=== PATIENT | female | born 1965 | race Caucasian/White ===

== ENCOUNTER 2018-12-29 21:31 | Inpatient (IN) | payer MEDICAID ==
[~2018-12-29] VITALS: Ht 160 cm; Wt 79.1 kg
[2018-12-29] MEDS ORDERED: HYDROCODON-ACE1 EA10 PO (21:39)
[2018-12-29] MEDS ORDERED: MIRALAX17 GM PO (21:40)
[2018-12-29] MEDS ORDERED: CHRONULAC30 ML PO (21:40)
[2018-12-29] MEDS ORDERED: ZOFRAN ODT4 MG/UDTAB PO (21:41)
[2018-12-29 22:21] LABS: HEMATOCRIT 28.8 % (36.0-48.0); HEMOGLOBIN 9.3 g/dL (12-16); MCH 30.8 pg (26.0-34.0); MCHC 32.3 g/dL (31.0-37.0); MCV 95.4 fL (80.0-100.0); PLATELET COUNT 93 10x3/uL (130-400); RBC 3.02 10x6/uL (4.00-5.40); RDW 16.8 % (11.5-14.5); WBC 5.9 10x3/uL (4.8-10.8)
[2018-12-29 22:34] LABS: APPEARANCE CLEAR (CLEAR); BILIRUBIN NEGATIVE (NEGATIVE); COLOR YELLOW (YELLOW); GLUCOSE NEGATIVE (NEGATIVE); KETONE NEGATIVE (NEGATIVE); NITRITE NEGATIVE (NEGATIVE); PROTEIN NEGATIVE (NEGATIVE); SPECIFIC GRAVITY 1.015 (1.005-1.020); UROBILINOGEN NORMAL (NORMAL)
[2018-12-29 22:45] LABS: ALBUMIN 2.3 g/dL (3.4-5.0); ALKALINE PHOSPHATASE 65 U/L (46-116); ALT (SGPT) 16 U/L (10-68); BILIRUBIN - TOTAL 0.64 mg/dL (0.2-1.3); CALC OSMOLALITY 273 mosm/kg (275-300); CARBON DIOXIDE 25.3 mmol/L (21.0-32.0); CHLORIDE - SERUM 100 mmol/L (98-107); CREATININE - SERUM 0.9 mg/dL (0.6-1.3); GLUCOSE 111 mg/dL (74-106); POTASSIUM - SERUM 3.5 mmol/L (3.5-5.1); PROTEIN - SERUM 5.6 g/dL (6.4-8.2); SODIUM 136 mmol/L (136-145); UREA NITROGEN 14 mg/dL (7-18); eGFR NON AFRICAN AMERICAN 69 mL/min (90-120)
[2018-12-29 22:48] LABS: AMYLASE - SERUM 46 U/L (25-115); LIPASE 96 U/L (73-393); TROPONIN-I < 0.017 ng/mL (0.000-0.060)
[2018-12-29 22:50] LABS: EOSINOPHILS 2 % (0-7); LYMPHOCYTES 34 % (15-50); MONOCYTES 2 % (2-11); NEUTROPHILS 62 % (40-80); PLATELET ESTIMATE DECREASED
[2018-12-29 23:30] VITALS: BP 118/77
[2018-12-30] VITALS (15 sets, daily range): BP systolic 91–111; BP diastolic 57–70; Ht 160 cm; Wt 79.1 kg
--- NOTE | 2018-12-30 00:33 | NUR ---
PT AMBULATED TO RESTROOM INDEPENDENTLY.
--- NOTE | 2018-12-30 00:43 | NUR ---
PT REPORTS HAD A MODERATE SIZED BM AND NOW FEELS LESS PRESSURE IN LOWER ABDOMEN. EDP NOTIFIED.
--- NOTE | 2018-12-30 03:17 | NUR ---
PT TO ROOM VIA BED ACCOMPANIES BY SPOUSE AND ER STAFF. PT LETHARGIC BUT ORIENTED X3. BP 95/62, RECIEVING NS AT 50 ML/HR INTO L AC PER MD ORDER. HR 112, TEMP 98.5, RR 20, 02 97% ON 2L OF O2 VIA NC. PAIN AT 0/10 45 MIN POST DEMEROL ADMINISTRATION. PT APPEARS FLUSHED AND C/O FEELING HOT. PT SKIN WARM TO TOUCH, DRY. NO S/S OF DISTRESS, RR EVEN AND UL. SPOUSE AT BEDSIDE. NO FURTHER NEEDS NOTED AT THIS TIME. CL IN REACH, SR UP X2, BED IN LOWEST POSITION.
--- NOTE | 2018-12-30 07:42 | NUR ---
ROUNDING DONE WITH PATIENT BEING NPO AT THIS TIME FOR PROCEDURE. ON 2L PER NC. LEFT AC PIV SEEN WITH NS INFUSING AT 50 CC/HR. FAMILY MEMBERS ASLEEP IN CHAIRS IN ROOM. WILL MONITOR.
--- NOTE | 2018-12-30 08:42 | NUR ---
0835-PERMITS SIGNED FOR PROCEDURE TODAY. WIPES GIVEN TO PATIENT OF DELORIS AND MARTELL CARDOSO.
[2018-12-30 09:15] LABS: INR 1.22 (0.85-1.17); PROTIME 14.8 SECONDS (11.6-15.0)
[2018-12-30 11:34] LABS: % SATURATION 26 % (15-55); IRON 44 ug/dl (35-150); TOTAL IRON BIND CAPACITY 169 ug/dl (260-445); UNSAT IRON BIND CAPACITY 125 ug/dl (150-375)
--- NOTE | 2018-12-30 13:04 | NUR ---
TO IR VIA BED.
--- NOTE | 2018-12-30 14:18 | NUR ---
1405-RETURNS FROM IR WITH C/D/I DRESSING OF 2 X 2 AND OPSITE TO RIGHT ABDOMINAL AREA. HUNGRY. WILL ORDER A TRAY.
--- NOTE | 2018-12-30 16:24 | NUR ---
STILL DOING WELL POST PROCEDURE. NO BLEEDING SEEN TO RIGHT ABDOMINAL DRESSING. WILL CONTINUE TO FOLLOW AND MONITOR.
--- NOTE | 2018-12-30 17:44 | NUR ---
EATING SUPPER, DENIES NEEDS AT THIS TIME.
--- NOTE | 2018-12-30 17:53 | NUR ---
ASSSITED PATIENT TO RESTROOM. VOIDS EASILY.
--- NOTE | 2018-12-30 20:00 | NUR ---
INITIAL ASSESSMENT COMPLETED - PT RESTING IN BED, STATES SHE STILL HAS SOME MILD PAIN BUT ONLY WHEN SHE MOVES. DRESSING TO R ABDOMEN C/D/I, DATED 12/30/18. PT REPORTS SLIGHT ABD PAIN. ASSISTED PT UP TO BATHROOM TO VOID, VOIDS EASILY. PT RECIEVING NS VIA L AC PIV AT 50 ML/HR. NO NEEDS NOTED AT THIS TIME. SET GOAL WITH PT TO CONTROL PAIN ADEQUATELY. PT VERBALIZED UNDERSTANDING. WCTM AND FOLLOW POC. NO OTHER NEEDS NOTED AT THIS TIME. CL IN REACH, SR UP X2, BED IN LOWEST POSITION.
[2018-12-31] VITALS: BP 96/59
[2018-12-31 04:32] VITALS: BP 95/58
[2018-12-31 06:01] LABS: BASOPHILS 0 % (0-2); HEMATOCRIT 25.4 % (36.0-48.0); HEMOGLOBIN 8.1 g/dL (12-16); IMMATURE GRANULOCYTES 0.2 % (0-5); LYMPHOCYTES 34.8 % (15-50); MCH 30.5 pg (26.0-34.0); MCHC 31.9 g/dL (31.0-37.0); MCV 95.5 fL (80.0-100.0); MONOCYTES 1.2 % (2-11); NEUTROPHILS 62.8 % (40-80); RBC 2.66 10x6/uL (4.00-5.40); RDW 16.6 % (11.5-14.5)
[2018-12-31 06:25] LABS: CALC OSMOLALITY 277 mosm/kg (275-300); CALCIUM 7.4 mg/dL (8.5-10.1); CARBON DIOXIDE 26.6 mmol/L (21.0-32.0); CHLORIDE - SERUM 104 mmol/L (98-107); CREATININE - SERUM 0.7 mg/dL (0.6-1.3); GLUCOSE 98 mg/dL (74-106); POTASSIUM - SERUM 3.3 mmol/L (3.5-5.1); SODIUM 140 mmol/L (136-145); eGFR NON AFRICAN AMERICAN > 90 mL/min (90-120)
[2018-12-31 06:26] LABS: UREA NITROGEN 9 mg/dL (7-18)
[2018-12-31 06:37] LABS: PLATELET COUNT 73 10x3/uL (130-400); WBC 4.1 10x3/uL (4.8-10.8)
--- NOTE | 2018-12-31 07:43 | NUR ---
ROUNDING DONE WITH PATIENT RESTING, AROUSES EASILY. ON ROOM AIR. GLASSES ON. LEFT AC PIV SEEN WITH NS INFUSING AT 50 CC/HR. SLIGHT DISCOMFORT TO ABDOMINAL AREA. DRESSING SEEN TO RIGHT ABDOMINAL AREA FROM PROCEDURE YESTERDAY.
[2018-12-31 09:00] VITALS: BP 103/58
[2018-12-31 10:19] LABS: FOLATE (FOLIC ACID) - SERUM 13.3 ng/mL (>3.0)
--- NOTE | 2018-12-31 12:32 | NUR ---
DENIES NEEDS AT THIS TIME, STATES THAT SHE WILL TRY TO EAT LUNCH.
[2018-12-31 12:43] VITALS: BP 109/61
--- NOTE | 2018-12-31 13:18 | NUR ---
REFUSED SCD PATIENT IS UP AND DOWN TO RESTROOM.
--- NOTE | 2018-12-31 13:28 | NUR ---
LAYING IN BED WATCHING TV, DENIES NEEDS.
[2018-12-31 16:05] VITALS: BP 102/63
[2018-12-31 17:29] LABS: HEMATOCRIT 25.3 % (36.0-48.0); HEMOGLOBIN 8.3 g/dL (12-16)
--- NOTE | 2018-12-31 18:15 | NUR ---
ORAL TEMP 100.0. DR VILLARREAL MADE AWARE OF THIS AND NEW ORDERS. TYLENOL GIVEN.
--- NOTE | 2018-12-31 19:15 | NUR ---
RESUMING PT CARE. PT ALERT LAYING IN THE BED WATCHING TV. NO C/O VOICED AT THIS TIME. BED IN LOW POSITION WITH CALL LIGHT IN REACH. SIDE RAILS UP X 2. WILL CONTINUE TO MONITOR PT AND FOLLOW PLAN OF CARE.
--- NOTE | 2018-12-31 19:30 | NUR ---
PT IV INFILTRATED. IV WAS PULLED OUT AND A 2X2 WAS APPLIED TO SITE. PT STATES NO DISCOMFORT AT THIS TIME. WILL CONTINUE TO MONITOR PT AND FOLLOW PLAN OF CARE.
[2018-12-31 20:00] VITALS: BP 100/63
[2018-12-31 22:51] LABS: APPEARANCE CLEAR (CLEAR); BILIRUBIN NEGATIVE (NEGATIVE); COLOR YELLOW (YELLOW); GLUCOSE NEGATIVE (NEGATIVE); KETONE NEGATIVE (NEGATIVE); NITRITE NEGATIVE (NEGATIVE); PROTEIN NEGATIVE (NEGATIVE); UROBILINOGEN NORMAL (NORMAL)
[2019-01-01] VITALS: BP 96/60
--- NOTE | 2019-01-01 02:44 | NUR ---
PT HAS A TEMP OF 101.2 TYLENOL 650MG PO WAS GIVEN. ACCORDING TO THE NURSES NOTES DR. VILLARREAL IS AWARE PT HAS BEEN RUNNING A TEMP AND ORDERED TYLENOL. WILL CONTINUE TO MONITOR PT AND FOLLOW PLAN OF CARE.
[2019-01-01 04:00] VITALS: BP 87/50
[2019-01-01 07:21] LABS: BASOPHILS 0.3 % (0-2); EOSINOPHILS 0.6 % (0-7); HEMATOCRIT 27.7 % (36.0-48.0); HEMOGLOBIN 8.9 g/dL (12-16); IMMATURE GRANULOCYTES 0.6 % (0-5); LYMPHOCYTES 35.7 % (15-50); MCH 30.6 pg (26.0-34.0); MCHC 32.1 g/dL (31.0-37.0); MCV 95.2 fL (80.0-100.0); MONOCYTES 0.6 % (2-11); NEUTROPHILS 62.2 % (40-80); PLATELET COUNT 80 10x3/uL (130-400); RBC 2.91 10x6/uL (4.00-5.40); RDW 16.5 % (11.5-14.5); WBC 3.4 10x3/uL (4.8-10.8)
[2019-01-01 07:22] LABS: CALC OSMOLALITY 275 mosm/kg (275-300); CARBON DIOXIDE 28.2 mmol/L (21.0-32.0); CHLORIDE - SERUM 103 mmol/L (98-107); CREATININE - SERUM 0.8 mg/dL (0.6-1.3); GLUCOSE 105 mg/dL (74-106); POTASSIUM - SERUM 3.4 mmol/L (3.5-5.1); SODIUM 139 mmol/L (136-145); UREA NITROGEN 7 mg/dL (7-18); eGFR NON AFRICAN AMERICAN 79 mL/min (90-120)
[2019-01-01 07:54] LABS: PLATELET ESTIMATE DECREASED
--- NOTE | 2019-01-01 08:22 | NUR ---
PT SITTING UP IN BED. NO CO NOR DISTRESS. BED LINENS CHANGED. PT HAD A SHOWER THIS AM. PT UNDERSTANDS POC.
[2019-01-01 09:13] VITALS: BP 95/66
--- NOTE | 2019-01-01 13:34 | NUR ---
D/C INSTRUCTIONS GIVEN TO PT, SIGNATURE OBTAINED. NO IV TO TAKE OUT, TAKEN TO PRIVATE CAR VIA WHEELCHAIR FOR HER MOTHER TO PICK HER UP.
--- NOTE | 2019-01-01 14:12 | MORECARE ---
CASE MANAGEMENT DISCHARGE SUMMARY PATIENT: SOLOMON NUNEZ UNIT: [id number] ADM DATE: 12/30/18 AGE: 53 : 63 SEX: F ROOM/BED: D.2140 AUTHOR: RYAN,DOC PHYSICIAN: REFERRING PHYSICIAN: ARMIN VILLARREAL MD DATE OF SERVICE: 01/01/19 Discharge Plan Patient Name: SOLOMON NUNEZ Facility: [facility]:[place] : 1965 Planned Disposition: Home Anticipated Discharge Date: 01/01/19 Discharge Date: 01/01/2019 Expected LOS: 2 Initial Reviewer: [email or web address] Initial Review Date: 01/01/2019 Generated: 01/01/19 3:11 pm Comments DCP- Discharge Planning Updated by [email or web address]: Raul Pinon on 01/01/19 1:[address] Patient Name: SOLOMON NUNEZ Admission Status: ER Accout number: [id number] Admission Date: 12-30-2018 : 1965 Admission Diagnosis: Attending: ARMIN VILLARREAL Current LOS: 2 Anticipated DC Date: 01-01-2019 Planned Disposition: Home Primary Insurance: MEDICAID [place] Discharge Planning Comments: CM MET WITH PT IN ROOM TO DISCUSS DISCHARGE PLANNING AND NEEDS. PT REPORTS LIVING AT HOME INDEPENDENTLY WITH HER SPOUSE. PT HAS NO MEDICAL EQUIPMENT AND NO OUTSIDE SERVICES ASSISTING IN THE HOME. CM DISCUSSED AVAILABILITY OF HOME HEALTH, REHAB SERVICES AND MEDICAL EQUIPMENT. PT DENIES DISCHARGE NEEDS, REPORTS HER SPOUSE WILL PICK HER UP FOR DISCHARGE HOME. TRANSITIONS MANAGER NURSE NOTIFIED. Piano Mechanic: Raul Pinon DCPIA - Discharge Planning Initial Assessment Updated by [email or web address]: Raul Pinon on 01/01/19 2:04 pm * Is the patient Alert and Oriented? Yes * How many steps to enter\exit or inside your home? NONE * PCP DR VIVEROS * Pharmacy [facility] * Preadmission Environment Home with Family * ADLs Independent * Equipment None * Other Equipment NO MEDICAL EQUIPMENT PROVIDER REFERENCE * List name and contact numbers for known caregivers / representatives who currently or will assist patient after discharge: CRIS NUNEZRACHELL, * Verbal permission to speak to the caregivers and representatives has been obtained from the patient. N/A * Community resources currently utilized None * Please name any agencies selected above. NONE * Additional services required to return to the preadmission environment? No * Can the patient safely return to the preadmission environment? Yes * Has this patient been hospitalized within the prior 30 days at any hospital? No Patient Name: SOLOMON NUNEZ Page [id number] at 1412 All edits/amendments must be made on the electronic document DICTATION DATE: 01/01/191410 SCREENING REPRESENTATIVE: SABINA 01/01/191410 RPT#: [id number] DC DATE:01/01/19 STATUS: DIS IN [facility] [address] [place] [address] END OF REPORT
== END 2019-01-01 13:35 | disposition home or self-care (01) | DRG 755 ==
LOC: D.ER 21:31 → D.M2 12-30 02:28 → OBSVTIME 12-30 02:28 → D.M2 12-30 16:21
PROVIDERS: Family Medicine; Radiology Diagnostic Radiology; Radiology Vascular & Interventional Radiology; ADMIT Internal Medicine Nephrology
PROC: 0W9G3ZZ Drainage of Peritoneal Cavity, Percutaneous Approach (ICD-10-PCS; principal; 2018-12-30 13:05)
DX: C56.9 Malignant neoplasm of unspecified ovary (principal); R18.0 Malignant ascites; E44.0 Moderate protein-calorie malnutrition; D50.9 Iron deficiency anemia, unspecified; D69.6 Thrombocytopenia, unspecified; Z68.31 Body mass index [BMI] 31.0-31.9, adult

== ENCOUNTER 2019-01-03 00:10 | Inpatient (IN) | payer MEDICAID ==
[~2019-01-03] VITALS: Ht 160 cm; Wt 78.9 kg
[2019-01-03] VITALS (12 sets, daily range): BP systolic 81–184; BP diastolic 54–85; BMI 30.8
[~2019-01-03 00:10] MED LIST: CHRONULAC30 ML PO; HYDROCODON-ACE1 EA10 PO; MIRALAX17 GM PO; ZOFRAN ODT4 MG/UDTAB PO
[2019-01-03 00:53] LABS: BASOPHILS 1.6 % (0-2); EOSINOPHILS 0 % (0-7); HEMATOCRIT 25.4 % (36.0-48.0); HEMOGLOBIN 8.2 g/dL (12-16); IMMATURE GRANULOCYTES 6.5 % (0-5); LYMPHOCYTES 42.7 % (15-50); MCH 30.6 pg (26.0-34.0); MCHC 32.3 g/dL (31.0-37.0); MCV 94.8 fL (80.0-100.0); MEAN PLATELET VOLUME 10.8 fL (7.4-10.4); MONOCYTES 3.2 % (2-11); PLATELET COUNT 69 10x3/uL (130-400); RBC 2.68 10x6/uL (4.00-5.40); RDW 16.4 % (11.5-14.5)
[2019-01-03 00:55] LABS: WBC 1.2 10x3/uL (4.8-10.8)
[2019-01-03 01:16] LABS: ALKALINE PHOSPHATASE 67 U/L (46-116); ALT (SGPT) 16 U/L (10-68); AMYLASE - SERUM 53 U/L (25-115); BILIRUBIN - TOTAL 0.73 mg/dL (0.2-1.3); CALC OSMOLALITY 268 mosm/kg (275-300); CALCIUM 7.9 mg/dL (8.5-10.1); CARBON DIOXIDE 24.8 mmol/L (21.0-32.0); CHLORIDE - SERUM 99 mmol/L (98-107); CREATININE - SERUM 0.8 mg/dL (0.6-1.3); GLUCOSE 95 mg/dL (74-106); LIPASE 104 U/L (73-393); POTASSIUM - SERUM 3.4 mmol/L (3.5-5.1); PROTEIN - SERUM 5.2 g/dL (6.4-8.2); SODIUM 135 mmol/L (136-145); UREA NITROGEN 11 mg/dL (7-18); eGFR NON AFRICAN AMERICAN 79 mL/min (90-120)
[2019-01-03 01:23] LABS: LYMPHOCYTES 46 % (15-50); NEUTROPHILS 46 % (40-80); PLATELET ESTIMATE DECREASED
[2019-01-03 01:24] LABS: PLATELET MORPHOLOGY GIANT PLTS PRESENT
--- NOTE | 2019-01-03 02:40 | NUR ---
MAXIPIME COMPLETED AT THIS TIME
--- NOTE | 2019-01-03 04:15 | NUR ---
RECEIVE PT TO FLOOR FROM ER VIA STRETCHER. PT C/O ABDOMINAL PAIN 05/26. REVIEWED HOME MEDS AND HISTORY WITH FAMILY. ASSISTED PT UP TO BEDSIDE COMMODE. PT HAS LOOSE STOOLS. TEMP 102.7 - CALLED DR. VILLARREAL - STARTED PT ON MERREPENEM AND VANC, BLOOD CULTURES WERE DRAWN IN ER. INSURANCE MARKETING SPECIALIST FOR PAIN CONTROL. NO OTHER NEEDS. WILL CONTINUE TO MONITOR.
--- NOTE | 2019-01-03 09:37 | NUR ---
PATIENT CHART REVIEWED FOR SCD'S. NO CONTRAINDICATION TO PLACE SCD. PER PROTOCOL/POLICY, SCD'S ORDERED.
[2019-01-03 16:28] LABS: APPEARANCE CLEAR (CLEAR); BILIRUBIN NEGATIVE (NEGATIVE); COLOR DK YELLOW (YELLOW); GLUCOSE NEGATIVE (NEGATIVE); KETONE SMALL mg/dL (NEGATIVE); NITRITE NEGATIVE (NEGATIVE); PROTEIN NEGATIVE (NEGATIVE); UROBILINOGEN NORMAL (NORMAL)
[2019-01-03 16:30] LABS: BACTERIA FEW /hpf (NONE SEEN); RED CELLS - URINE 0-5 /hpf (0-5); WHITE CELLS - URINE 0-5 /hpf (0-5)
[2019-01-03 16:31] LABS: GRANULAR CAST RARE /lpf (NONE SEEN)
--- NOTE | 2019-01-03 21:35 | NUR ---
2ND UNIT PRBC INFUSION COMPLETE. RESUMED IV FLUIDS AND REVENUE CYCLE MANAGER. GAVE PT BOLUS FOR PAIN 06/26. ANNA SANCHEZ IVPB. ASSESSMENT COMPLETE PER FLOW-SHEET. NO OTHER NEEDS. WILL CONTINUE TO MONITOR.
[2019-01-04] VITALS (11 sets, daily range): BP systolic 89–113; BP diastolic 59–77; Ht 160 cm; Wt 78.9 kg
[2019-01-04 05:01] LABS: BASOPHILS 0.7 % (0-2); EOSINOPHILS 0.4 % (0-7); HEMATOCRIT 31.1 % (36.0-48.0); HEMOGLOBIN 10.3 g/dL (12-16); IMMATURE GRANULOCYTES 2.1 % (0-5); LYMPHOCYTES 37.7 % (15-50); MCH 30.6 pg (26.0-34.0); MCHC 33.1 g/dL (31.0-37.0); MCV 92.3 fL (80.0-100.0); MONOCYTES 7.7 % (2-11); NEUTROPHILS 51.4 % (40-80); RBC 3.37 10x6/uL (4.00-5.40); RDW 17.2 % (11.5-14.5); WBC 2.8 10x3/uL (4.8-10.8)
[2019-01-04 05:02] LABS: PLATELET COUNT 32 10x3/uL (130-400)
[2019-01-04 05:11] LABS: ALBUMIN 1.7 g/dL (3.4-5.0); ALKALINE PHOSPHATASE 65 U/L (46-116); ALT (SGPT) 15 U/L (10-68); BILIRUBIN - TOTAL 0.97 mg/dL (0.2-1.3); CALC OSMOLALITY 273 mosm/kg (275-300); CALCIUM 7.7 mg/dL (8.5-10.1); CARBON DIOXIDE 24.4 mmol/L (21.0-32.0); CHLORIDE - SERUM 103 mmol/L (98-107); CREATININE - SERUM 0.7 mg/dL (0.6-1.3); GLUCOSE 84 mg/dL (74-106); POTASSIUM - SERUM 3.5 mmol/L (3.5-5.1); SODIUM 138 mmol/L (136-145); UREA NITROGEN 11 mg/dL (7-18); eGFR NON AFRICAN AMERICAN > 90 mL/min (90-120)
--- NOTE | 2019-01-04 06:25 | NUR ---
SPOKE WITH DR. TAYLOR ABOUT CRITICAL PLT 32. NO NEW ORDERS.
--- NOTE | 2019-01-04 07:58 | NUR ---
PT INQUIRED ON POSSIBLE PARACENTESIS TODAY, ADVISED I WILL CALL SPECIALS AND SEE ABOUT WHAT TIME, CALLED AND SPOKE TO BRITTNEY. SHE STATED THAT THEY WERE VISITING WITH THE DOCTORS AND WOULD CALL BACK. NO OTHER NEEDS VOICED, CONTINUE WITH PLAN OF CARE
[2019-01-04 08:47] LABS: INR 1.28 (0.85-1.17); PROTIME 15.5 SECONDS (11.6-15.0)
--- NOTE | 2019-01-04 11:35 | NUR ---
ADMINISTERED ORDERED MEDS PER MAR, PT MOTHER AT BEDSIDE, STATED PT LOOKS IF SHE IS RUNNING FEVER, PT TEMP IS 98.6, PT FLOWSHEET HX SHOWS PT TO HAVE LOW GRADE FEVER PREVIOUSLY FROM 99.2-99.8. PT RECEIVED PLATELETS AN HOUR AGO. HAD DIRECTOR OF ALUMNI RELATIONS RECHECK TEMP AND TEMP IS 98.8 WILL CONTINUE TO MONITOR
--- NOTE | 2019-01-04 17:07 | NUR ---
PT LYING IN BED WITH FAN POINTED TOWARDS FACE, STATED SHE IS HOT, PT IS NOT RUNNING TEMP BUT IS FLUSHED, NO NEEDS VOICED, CONTINUE WITH PLAN OF CARE
--- NOTE | 2019-01-04 20:00 | NUR ---
SUPINE IN BED, FAMILY AT BEDSIDE. A&O X 4, STATES HAND WASHER ADEQUATE CONTROLS PAIN AT THIS TIME. LEFT SIDE OF FACE APPEARS FLUSHED, NO TEMPERATURE NOTED. PT STATES IT BEEN ON-GOING FOR A FEW HOURS, BUT UNSURE WHEN THE REDNESS BEGAN. NO ITCHING/SWELLING/PAIN ASSOCIATED WITH REDNESS. INFORMED PT TO KEEP A COOL COMPRESS ON AFFECTED AREA AND NOTIFY IF CONDITION WORSENS.
[2019-01-05] VITALS (11 sets, daily range): BP systolic 95–110; BP diastolic 66–73
--- NOTE | 2019-01-05 04:14 | NUR ---
RESTING IN BED RESP EVEN AND UNLABORED CALL LIGHT IN REACH NO S/S OF DISTRESS REMAINS OM ISOLATION
[2019-01-05 06:49] LABS: ALBUMIN 1.6 g/dL (3.4-5.0); ALKALINE PHOSPHATASE 67 U/L (46-116); ALT (SGPT) 15 U/L (10-68); BILIRUBIN - TOTAL 0.73 mg/dL (0.2-1.3); CALC OSMOLALITY 273 mosm/kg (275-300); CALCIUM 7.6 mg/dL (8.5-10.1); CARBON DIOXIDE 21.5 mmol/L (21.0-32.0); CHLORIDE - SERUM 103 mmol/L (98-107); CREATININE - SERUM 0.7 mg/dL (0.6-1.3); GLUCOSE 86 mg/dL (74-106); POTASSIUM - SERUM 3.4 mmol/L (3.5-5.1); PROTEIN - SERUM 4.8 g/dL (6.4-8.2); SODIUM 138 mmol/L (136-145); UREA NITROGEN 10 mg/dL (7-18); eGFR NON AFRICAN AMERICAN > 90 mL/min (90-120)
[2019-01-05 07:13] LABS: HEMATOCRIT 29.7 % (36.0-48.0); HEMOGLOBIN 9.7 g/dL (12-16); MCH 30.2 pg (26.0-34.0); MCHC 32.7 g/dL (31.0-37.0); MCV 92.5 fL (80.0-100.0); RBC 3.21 10x6/uL (4.00-5.40); RDW 17.1 % (11.5-14.5)
[2019-01-05 07:15] LABS: WBC 6.8 10x3/uL (4.8-10.8)
[2019-01-05 07:16] LABS: PLATELET COUNT 33 10x3/uL (130-400)
[2019-01-05 07:54] LABS: ANISOCYTOSIS 1+; CRENATED CELLS OCC; EOSINOPHILS 2 % (0-7); LYMPHOCYTES 25 % (15-50); MONOCYTES 11 % (2-11); NEUTROPHILS 47 % (40-80); PLATELET ESTIMATE DECREASED; POIKILOCYTOSIS OCC
[2019-01-06 05:57] LABS: HEMATOCRIT 28.6 % (36.0-48.0); HEMOGLOBIN 9.4 g/dL (12-16); MCH 30.2 pg (26.0-34.0); MCHC 32.9 g/dL (31.0-37.0); RBC 3.11 10x6/uL (4.00-5.40); RDW 17.2 % (11.5-14.5)
[2019-01-06 06:03] LABS: WBC 13.7 10x3/uL (4.8-10.8)
[2019-01-06 06:04] LABS: PLATELET COUNT 22 10x3/uL (130-400)
[2019-01-06 06:05] VITALS: BP 92/64
[2019-01-06 06:06] LABS: ALBUMIN 1.5 g/dL (3.4-5.0); ALKALINE PHOSPHATASE 65 U/L (46-116); ALT (SGPT) 14 U/L (10-68); BILIRUBIN - TOTAL 0.55 mg/dL (0.2-1.3); CALC OSMOLALITY 277 mosm/kg (275-300); CALCIUM 7.3 mg/dL (8.5-10.1); CARBON DIOXIDE 25.9 mmol/L (21.0-32.0); CHLORIDE - SERUM 105 mmol/L (98-107); CREATININE - SERUM 0.7 mg/dL (0.6-1.3); GLUCOSE 86 mg/dL (74-106); POTASSIUM - SERUM 3.2 mmol/L (3.5-5.1); PROTEIN - SERUM 4.4 g/dL (6.4-8.2); SODIUM 141 mmol/L (136-145); UREA NITROGEN 8 mg/dL (7-18); eGFR NON AFRICAN AMERICAN > 90 mL/min (90-120)
[2019-01-06 08:15] LABS: ANISOCYTOSIS OCC; LYMPHOCYTES 20 % (15-50); MONOCYTES 11 % (2-11); NEUTROPHILS 49 % (40-80); PLATELET ESTIMATE DECREASED; SMUDGE CELLS OCC
[2019-01-06 08:27] VITALS: BP 97/66
[2019-01-06 08:41] LABS: APTT 30.3 SECONDS (22.8-39.4); INR 1.18 (0.85-1.17); PROTIME 14.5 SECONDS (11.6-15.0)
--- NOTE | 2019-01-06 09:47 | NUR ---
REC'D IN WALKING ROUNDS AWAKE AND ALERT. RESP EVEN AND UNLABORED WITH NO DISTRESS NOTED. CAN EXPRESS NEEDS AND WANTS. NO C/O NOTED VOICED. ASSESSSMENT COMPLETED. C/L IN REACH AT BEDSIDE.
--- NOTE | 2019-01-06 10:51 | NUR ---
NUTRITION F/U DIET ADVANCED TO REG, WILL HONOR FOOD PREFERENCES, MONITOR PO INTAKE. RD FOLLOWING
[2019-01-06 12:53] VITALS: BP 104/58
[2019-01-06 15:47] VITALS: BP 106/75
[2019-01-06 21:36] VITALS: BP 105/70
[2019-01-07 00:36] VITALS: BP 108/67
--- NOTE | 2019-01-07 00:47 | NUR ---
C/O NAUSEA NO EMESIS NOTED. ZOFRAN 8MG IVP GIVEN FOR RELIEF OF NAUSEA. DAUGHTER AT BEDSIDE.
[2019-01-07 05:44] VITALS: BP 95/66
[2019-01-07 05:53] LABS: HEMATOCRIT 27.9 % (36.0-48.0); HEMOGLOBIN 9.2 g/dL (12-16); MCH 30.5 pg (26.0-34.0); MCV 92.4 fL (80.0-100.0); RBC 3.02 10x6/uL (4.00-5.40); RDW 17.1 % (11.5-14.5); WBC 16.1 10x3/uL (4.8-10.8)
[2019-01-07 06:22] LABS: ALBUMIN 1.6 g/dL (3.4-5.0); ALKALINE PHOSPHATASE 62 U/L (46-116); ALT (SGPT) 11 U/L (10-68); BILIRUBIN - TOTAL 0.46 mg/dL (0.2-1.3); CALC OSMOLALITY 277 mosm/kg (275-300); CALCIUM 7.1 mg/dL (8.5-10.1); CARBON DIOXIDE 24.6 mmol/L (21.0-32.0); CHLORIDE - SERUM 103 mmol/L (98-107); CREATININE - SERUM 0.7 mg/dL (0.6-1.3); GLUCOSE 101 mg/dL (74-106); POTASSIUM - SERUM 3.2 mmol/L (3.5-5.1); PROTEIN - SERUM 4.4 g/dL (6.4-8.2); SODIUM 140 mmol/L (136-145); UREA NITROGEN 9 mg/dL (7-18); eGFR NON AFRICAN AMERICAN > 90 mL/min (90-120)
[2019-01-07 06:37] LABS: PLATELET COUNT 26 10x3/uL (130-400)
--- NOTE | 2019-01-07 06:51 | NUR ---
MEDS GIVEN PER MAR.
--- NOTE | 2019-01-07 07:51 | NUR ---
REC'D IN WALKING ROUNDS WITH EYES CLOSED RESTING WELL AT THIS TIME. EASILY TO AROUSED WHEN NAME IS CALLED. RESP EVEN AND UNLABORED WITH NO DISTRESS NOTED. CAN EXPRESS NEEDS AND WANTS. NONE NOTED OR VOICED. ASSESSMENT COMPLETED. C/L IN REACH AT BEDSIDE.
[2019-01-07 08:48] LABS: ANISOCYTOSIS 1+; LYMPHOCYTES 20 % (15-50); MONOCYTES 20 % (2-11); NEUTROPHILS 31 % (40-80); PLATELET ESTIMATE DECREASED
[2019-01-07 08:49] LABS: HYPOCHROMASIA OCC; POIKILOCYTOSIS OCC
[2019-01-07 09:14] VITALS: BP 109/73
--- NOTE | 2019-01-07 11:45 | NUR ---
WAS MEDICATED WITH ZOFRAN D/T NAUSEA AND VOMITING. C/L IN REACH AT BEDSIDE.
[2019-01-07 12:47] VITALS: BP 109/73
--- NOTE | 2019-01-07 16:33 | MORECARE ---
CASE MANAGEMENT DISCHARGE SUMMARY PATIENT: SOLOMON NUNEZ UNIT: [id number] ADM DATE: 01/03/19 AGE: 53 : 63 SEX: F ROOM/BED: D.2214 AUTHOR: RENATO DAVIS PHYSICIAN: REFERRING PHYSICIAN: ARMIN VILLARREAL MD DATE OF SERVICE: 01/07/19 Discharge Plan Patient Name: SOLOMON NUNEZ [facility] [facility] 1965 Planned Disposition: Home Anticipated Discharge Date: Discharge Date: Expected LOS: Initial Reviewer: [email or web address] Initial Review Date: 01/03/2019 Generated: 01/07/19 5:33 pm DCPIA - Discharge Planning Initial Assessment Updated by [email or web address]: Cherie Alarcon on 01/07/19 4:33 pm * Is the patient Alert and Oriented? Yes * How many steps to enter\exit or inside your home? * PCP VIVEROS * Pharmacy [facility] * Preadmission Environment Home with Family * ADLs Partial Dependent * Partial ADLs (Assistance needed) Medication Management * Equipment None * List name and contact numbers for known caregivers / representatives who currently or will assist patient after discharge: PRIMO (MOTHER) [phone] CRIS GRAY ([phone]) * Verbal permission to speak to the caregivers and representatives has been obtained from the patient. Yes * Community resources currently utilized None * Additional services required to return to the preadmission environment? Yes * Can the patient safely return to the preadmission environment? Yes * Has this patient been hospitalized within the prior 30 days at any hospital? No Patient Name: SOLOMON NUNEZ Page 48727 at 1633 All edits/amendments must be made on the electronic document DICTATION DATE: 01/07/191632 TUBE BALANCER: SABINA 01/07/19 163 RPT#: [id number] DC DATE: STATUS: ADM IN [facility] [address] [place] [address] END OF REPORT
--- NOTE | 2019-01-07 16:41 | MORECARE ---
CASE MANAGEMENT DISCHARGE SUMMARY PATIENT: SOLOMON NUNEZ UNIT: [id number] ADM DATE: 01/03/19 AGE: 53 : 63 SEX: F ROOM/BED: D.2214 AUTHOR: RYAN,DOC PHYSICIAN: REFERRING PHYSICIAN: ARMIN VILLARREAL MD DATE OF SERVICE: 01/07/19 Discharge Plan Patient Name: SOLOMON UNNEZ Facility: [facility]:[place] : 1965 Planned Disposition: Home Anticipated Discharge Date: Discharge Date: Expected LOS: Initial Reviewer: [email or web address] Initial Review Date: 01/03/2019 Generated: 01/07/19 5:41 pm Comments DCP- Discharge Planning Updated by [email or web address]: Cherie Alarcon on 01/07/19 3:[address] Patient Name: SOLOMON NUNEZ Admission Status: ER Accout number: [id number] Admission Date: 01-03-2019 : 1965 Admission Diagnosis:MALIGNANT NEOPLASM OF UNSPECIFIED OVARY Attending: ARMIN VILLARREAL Current LOS: 4 Anticipated DC Date: Planned Disposition: Home Primary Insurance: MEDICAID [place] Discharge Planning Comments: CM met with patient to complete initial dc planning assessment. CM educated patient on the CM role and verbal consent given by patient to speak with her mother to complete assessment. Patient lives at home with her and children. CM discussed availability of home health, rehab services, and medical equipment. Patient's mother stated that she does not use and DME or home health services and is unsure if she will need anything at DC. Here recently she has just been going to the bathroom and laying in bed. I am unsure of what the patient would be up to having in the home. She did not want to talk to me when I was in there due to the pain. The mother stated that this admission was the first time that she has heard that she was in the "end stages" of the cancer. CM will continue to follow and will assist as needed with dc plans/needs. Change Booth Attendant: Cherie Alarcon DCPIA - Discharge Planning Initial Assessment Updated by [email or web address]: Cherie Alarcon on 01/07/19 4:33 pm * Is the patient Alert and Oriented? Yes * How many steps to enter\\exit or inside your home? * PCP VIVEROS * Pharmacy [facility] * Preadmission Environment Home with Family * ADLs Partial Dependent * Partial ADLs (Assistance needed) Medication Management * Equipment None * List name and contact numbers for known caregivers / representatives who currently or will assist patient after discharge: PRIMO (MOTHER) [phone] CRIS GRAY ([phone]) * Verbal permission to speak to the caregivers and representatives has been obtained from the patient. Yes * Community resources currently utilized None * Additional services required to return to the preadmission environment? Yes * Can the patient safely return to the preadmission environment? Yes * Has this patient been hospitalized within the prior 30 days at any hospital? No Last DP export: 01/07/19 3:33 p Patient Name: SOLOMON NUNEZ Page 57040 at 1641 All edits/amendments must be made on the electronic document DICTATION DATE: 01/07/191640 OTR DRIVER: SABINA 01/07/191640 RPT#: [id number] DC DATE: STATUS: ADM IN [facility] [address] [place] [address] END OF REPORT
--- NOTE | 2019-01-07 18:31 | NUR ---
PATIENT IN BED WITH IV BEEPING. FIXED AT THIS TIME. C/O PAIN TO ABDOMIN. STATED IT FELT LIKE GAS. ENCOURAGED PATIENT TO MOVE AROUND AND DRINK FLUIDS IF ABLE TO HELP GET RID OF GAS. VERBALIZED UNDERSTANDING. CALL LIGHT WITHIN REACH.
[2019-01-07 21:11] VITALS: BP 111/77
--- NOTE | 2019-01-08 01:59 | NUR ---
PT REFUSED REGLAN. STATES SHE "CAN TASTE IT IT'S BEING PUSHED" IV AND DOESN'T WANT ANYTHING TO UPSET HER STOMACH AND MAKE HER VOMIT RIGHT NOW. NO OTHER NEEDS. ASSESSMENT PER FLOW-SHEET. WILL CONTINUE TO MONITOR.
[2019-01-08 05:42] VITALS: BP 107/72
[2019-01-08 05:43] LABS: ALBUMIN 1.9 g/dL (3.4-5.0); ALKALINE PHOSPHATASE 65 U/L (46-116); ALT (SGPT) 13 U/L (10-68); BILIRUBIN - TOTAL 0.53 mg/dL (0.2-1.3); CALC OSMOLALITY 279 mosm/kg (275-300); CALCIUM 7.9 mg/dL (8.5-10.1); CARBON DIOXIDE 27.1 mmol/L (21.0-32.0); CHLORIDE - SERUM 102 mmol/L (98-107); CREATININE - SERUM 0.6 mg/dL (0.6-1.3); GLUCOSE 98 mg/dL (74-106); PROTEIN - SERUM 5.1 g/dL (6.4-8.2); SODIUM 141 mmol/L (136-145); UREA NITROGEN 9 mg/dL (7-18); eGFR NON AFRICAN AMERICAN > 90 mL/min (90-120)
[2019-01-08 05:48] LABS: POTASSIUM - SERUM 3.8 mmol/L (3.5-5.1)
[2019-01-08 05:54] LABS: HEMATOCRIT 30.4 % (36.0-48.0); HEMOGLOBIN 10.2 g/dL (12-16); LYMPHOCYTES 18.6 % (15-50); MCH 31.5 pg (26.0-34.0); MCHC 33.6 g/dL (31.0-37.0); MCV 93.8 fL (80.0-100.0); RBC 3.24 10x6/uL (4.00-5.40); RDW 17.6 % (11.5-14.5); WBC 12.6 10x3/uL (4.8-10.8)
[2019-01-08 05:55] LABS: PLATELET COUNT 20 10x3/uL (130-400)
[2019-01-08 09:13] VITALS: BP 109/79
[2019-01-08 12:00] VITALS: BP 109/68
[2019-01-08] MEDS ORDERED: REGLAN10 MG PO (12:59)
[2019-01-08] MEDS ORDERED: ALDACTONE25 MG PO (12:59)
[2019-01-08] MEDS ORDERED: HYDROCODON-ACE1 EAC7 PO (13:00)
--- NOTE | 2019-01-08 13:49 | MORECARE ---
CASE MANAGEMENT DISCHARGE SUMMARY PATIENT: SOLOMON NUNEZ UNIT: [id number] ADM DATE: 01/03/19 AGE: 53 : 63 SEX: F ROOM/BED: D.2214 AUTHOR: RYANDOC PHYSICIAN: REFERRING PHYSICIAN: ARMIN VILLARREAL MD DATE OF SERVICE: 01/08/19 Discharge Plan Patient Name: SOLOMON NUNEZ Facility: [facility]:[place] : 1965 Planned Disposition: Home Anticipated Discharge Date: Discharge Date: Expected LOS: Initial Reviewer: [email or web address] Initial Review Date: 01/03/2019 Generated: 01/08/19 2:48 pm Comments DCP- Discharge Planning Updated by [email or web address]: Cherie Alarcon on 01/08/19 12:[address] Patient Name: SOLOMON NUNEZ Encounter No: [id number] : 1965 Primary Insurance: MEDICAID [place] Anticipated DC Date: Planned Disposition: Home External Planned Provider: : DCP follow-up note: Patient and family in agreement with discharge plan. No changes to plan. Case management will follow and assist as needed. Cherie Alarcon DCP- Discharge Planning Updated by [id number]: Cherie Alarcon on 01/07/19 3:[address] Patient Name: SOLOMON NUNEZ Admission Status: ER Accout number: [id number] Admission Date: 01-03-2019 : 1965 Admission Diagnosis:MALIGNANT NEOPLASM OF UNSPECIFIED OVARY Attending: ARMIN VILLARREAL Current LOS: 4 Anticipated DC Date: Planned Disposition: Home Primary Insurance: MEDICAID [place] Discharge Planning Comments: CM met with patient to complete initial dc planning assessment. CM educated patient on the CM role and verbal consent given by patient to speak with her mother to complete assessment. Patient lives at home with her and children. CM discussed availability of home health, rehab services, and medical equipment. Patient's mother stated that she does not use and DME or home health services and is unsure if she will need anything at DC. Here recently she has just been going to the bathroom and laying in bed. I am unsure of what the patient would be up to having in the home. She did not want to talk to me when I was in there due to the pain. The mother stated that this admission was the first time that she has heard that she was in the "end stages" of the cancer. CM will continue to follow and will assist as needed with dc plans/needs. Chemical Treatment Plant Technician: Cherie Alarcon DCPIA - Discharge Planning Initial Assessment Updated by [email or web address]: Cherie Alarcon on 01/07/19 4:33 pm * Is the patient Alert and Oriented? Yes * How many steps to enter\\exit or inside your home? * PCP VIVEROS * Pharmacy [facility] * Preadmission Environment Home with Family * ADLs Partial Dependent * Partial ADLs (Assistance needed) Medication Management * Equipment None * List name and contact numbers for known caregivers / representatives who currently or will assist patient after discharge: PRIMO (MOTHER) [phone] CRIS GRAY ([phone]) * Verbal permission to speak to the caregivers and representatives has been obtained from the patient. Yes * Community resources currently utilized None * Additional services required to return to the preadmission environment? Yes * Can the patient safely return to the preadmission environment? Yes * Has this patient been hospitalized within the prior 30 days at any hospital? No Last DP export: 01/07/19 3:41 p Patient Name: SOLOMON NUNEZ Page 15613 at 1349 All edits/amendments must be made on the electronic document DICTATION DATE: 01/08/191347 BUSINESS PROCESS MANAGER: SABINA 01/08/19 1348 RPT#: [id number] DC DATE: STATUS: ADM IN [facility] [address] [place] [address] END OF REPORT
--- NOTE | 2019-01-12 17:17 | MORECARE ---
CASE MANAGEMENT DISCHARGE SUMMARY PATIENT: SOLOMON NUNEZ UNIT: [id number] ADM DATE: 01/03/19 AGE: 53 : 63 SEX: F ROOM/BED: D.2214 AUTHOR: RYANDOC PHYSICIAN: REFERRING PHYSICIAN: ARMIN VILLARREAL MD DATE OF SERVICE: 01/12/19 Discharge Plan Patient Name: SOLOMON NUNEZ Facility: [facility]:[place] : 1965 Planned Disposition: Home Anticipated Discharge Date: Discharge Date: 01/08/2019 Expected LOS: 0 Initial Reviewer: [email or web address] Initial Review Date: 01/03/2019 Generated: 01/12/19 6:16 pm Comments DCP- Discharge Planning Updated by [email or web address]: Cherie Alarcon on 01/08/19 12:[address] Patient Name: SOLOMON NUNEZ Encounter No: [id number] : 1965 Primary Insurance: MEDICAID [place] Anticipated DC Date: Planned Disposition: Home External Planned Provider: : DCP follow-up note: Patient and family in agreement with discharge plan. No changes to plan. Case management will follow and assist as needed. Cherie Alarcon DCP- Discharge Planning Updated by [email or web address]: Cherie Alarcon on 01/07/19 3:[address] Patient Name: SOLOMON NUNEZ Admission Status: ER Accout number: [id number] Admission Date: 01-03-2019 : 1965 Admission Diagnosis:MALIGNANT NEOPLASM OF UNSPECIFIED OVARY Attending: ARMIN VILLARREAL Current LOS: 4 Anticipated DC Date: Planned Disposition: Home Primary Insurance: MEDICAID [place] Discharge Planning Comments: CM met with patient to complete initial dc planning assessment. CM educated patient on the CM role and verbal consent given by patient to speak with her mother to complete assessment. Patient lives at home with her and children. CM discussed availability of home health, rehab services, and medical equipment. Patient's mother stated that she does not use and DME or home health services and is unsure if she will need anything at DC. Here recently she has just been going to the bathroom and laying in bed. I am unsure of what the patient would be up to having in the home. She did not want to talk to me when I was in there due to the pain. The mother stated that this admission was the first time that she has heard that she was in the "end stages" of the cancer. CM will continue to follow and will assist as needed with dc plans/needs. Insurance Investigator: Cherie Alarcon DCPIA - Discharge Planning Initial Assessment Updated by [email or web address]: Cherie Alarcon on 01/07/19 4:33 pm * Is the patient Alert and Oriented? Yes * How many steps to enter\\exit or inside your home? * PCP VIVEROS * Pharmacy [facility] * Preadmission Environment Home with Family * ADLs Partial Dependent * Partial ADLs (Assistance needed) Medication Management * Equipment None * List name and contact numbers for known caregivers / representatives who currently or will assist patient after discharge: PRIMO (MOTHER) [phone] CRIS GRAY ([phone]) * Verbal permission to speak to the caregivers and representatives has been obtained from the patient. Yes * Community resources currently utilized None * Additional services required to return to the preadmission environment? Yes * Can the patient safely return to the preadmission environment? Yes * Has this patient been hospitalized within the prior 30 days at any hospital? No Last DP export: 01/08/19 12:48 p Patient Name: SOLOMON NUNEZ Page 39543 at 1717 All edits/amendments must be made on the electronic document DICTATION DATE: 01/12/191715 JUVENILE JUSTICE OFFICER: SABINA 01/12/191715 RPT#: [id number] DC DATE:01/08/19 STATUS: DIS IN [facility] [address] [place] [address] END OF REPORT
== END 2019-01-08 15:42 | disposition home or self-care (01) | DRG 754 ==
LOC: D.ER 00:10 → D.MS 02:54
PROVIDERS: Emergency Medicine; Internal Medicine Hematology & Oncology; Radiology Diagnostic Radiology; ADMIT Internal Medicine Nephrology
PROC: 0W9G3ZZ Drainage of Peritoneal Cavity, Percutaneous Approach (ICD-10-PCS; principal; 2019-01-05 14:45)
DX: C56.9 Malignant neoplasm of unspecified ovary (principal); D61.810 Antineoplastic chemotherapy induced pancytopenia; R18.0 Malignant ascites; E44.0 Moderate protein-calorie malnutrition; J98.11 Atelectasis; D70.1 Agranulocytosis secondary to cancer chemotherapy; E86.0 Dehydration; R00.0 Tachycardia, unspecified; Z68.30 Body mass index [BMI] 30.0-30.9, adult; D69.6 Thrombocytopenia, unspecified; E87.6 Hypokalemia

== ENCOUNTER 2019-02-04 19:31 | Inpatient (IN) | payer MEDICAID ==
[~2019-02-04] VITALS: Ht 160 cm; Wt 74.8 kg
[~2019-02-04 19:31] MED LIST changes: +ALDACTONE25 MG PO; +HYDROCODON-ACE1 EAC7 PO; +REGLAN10 MG PO
[2019-02-04 20:08] LABS: BASOPHILS 0.1 % (0-2); EOSINOPHILS 0.2 % (0-7); HEMATOCRIT 32.2 % (36.0-48.0); HEMOGLOBIN 10.6 g/dL (12-16); IMMATURE GRANULOCYTES 1.2 % (0-5); LYMPHOCYTES 15.1 % (15-50); MCH 29.1 pg (26.0-34.0); MCHC 32.9 g/dL (31.0-37.0); MCV 88.5 fL (80.0-100.0); MONOCYTES 1.3 % (2-11); NEUTROPHILS 82.1 % (40-80); RBC 3.64 10x6/uL (4.00-5.40); RDW 17.4 % (11.5-14.5); WBC 11.8 10x3/uL (4.8-10.8)
[2019-02-04 20:12] LABS: PLATELET COUNT 62 10x3/uL (130-400)
[2019-02-04 20:26] LABS: ALBUMIN 2.7 g/dL (3.4-5.0); ALKALINE PHOSPHATASE 82 U/L (46-116); ALT (SGPT) 12 U/L (10-68); BILIRUBIN - TOTAL 0.52 mg/dL (0.2-1.3); CALC OSMOLALITY 282 mosm/kg (275-300); CALCIUM 8.5 mg/dL (8.5-10.1); CARBON DIOXIDE 27.3 mmol/L (21.0-32.0); CHLORIDE - SERUM 102 mmol/L (98-107); GLUCOSE 109 mg/dL (74-106); POTASSIUM - SERUM 3.9 mmol/L (3.5-5.1); PROTEIN - SERUM 6.9 g/dL (6.4-8.2); SODIUM 140 mmol/L (136-145); UREA NITROGEN 21 mg/dL (7-18); eGFR NON AFRICAN AMERICAN 61 mL/min (90-120)
[2019-02-04 20:35] LABS: PLATELET ESTIMATE DECREASED
[2019-02-04 20:38] LABS: TROPONIN-I < 0.017 ng/mL (0.000-0.060)
--- NOTE | 2019-02-04 23:00 | NUR ---
PATIENT RECEIVED FROM ED. BED IS IN THE LOW POSITION WITH SIDERAILS X2 AND CALL LIGHT WITHIN REACH. PATIENT WAS EDUCATED ON THE USE OF A CALL LIGHT AND DEMONSTRATES UNDERSTANDING VIA TEACHBACK METHOD. THE PATIENT APPEARS COMFORTABLE AND HAS NO QUESTIONS OR COCNERNS AT THIS TIME.
[2019-02-04 23:07] VITALS: BP 107/73; BMI 29.2
[2019-02-05] VITALS (9 sets, daily range): BP systolic 92–117; BP diastolic 55–81; Ht 160 cm; Wt 74.8 kg
--- NOTE | 2019-02-05 03:23 | NUR ---
THE PATIENT APPEARS TO BE SLEEPING. BED IS IN THE LOW POSITION WITH SIDERAILS X2 AND CALL LIGHT WITHIN REACH.
--- NOTE | 2019-02-05 07:49 | NUR ---
PT SITTING UP ON SIDE OF BED EATING BREAKFAST. PT CONCERNED ABOUT GETTING CLEAR LIQUID TRAY. INFORMED PT THAT CLEAR LIQUID DIET IS EASIER ON STOMACH. A/O. UP AB CHANTELL. RM AIR. IV TO L AC SL. NO FURTHER CONCERNS AT THIS TIME. BED LOWERED AND LOCKED. CL IN REACH. WILL CPOC.
[2019-02-05 09:17] LABS: ANION GAP 13.5 mmol/L (8-16); CALCIUM 8.2 mg/dL (8.5-10.1); CARBON DIOXIDE 25.5 mmol/L (21.0-32.0); CREATININE - SERUM 0.9 mg/dL (0.6-1.3)
[2019-02-05 09:25] LABS: BASOPHILS 0.1 % (0-2); EOSINOPHILS 0.2 % (0-7); HEMATOCRIT 29.3 % (36.0-48.0); HEMOGLOBIN 9.5 g/dL (12-16); IMMATURE GRANULOCYTES 0.8 % (0-5); LYMPHOCYTES 21.3 % (15-50); MCH 28.9 pg (26.0-34.0); MCHC 32.4 g/dL (31.0-37.0); MCV 89.1 fL (80.0-100.0); MONOCYTES 1.2 % (2-11); NEUTROPHILS 76.4 % (40-80); RBC 3.29 10x6/uL (4.00-5.40); RDW 17.4 % (11.5-14.5); WBC 9.2 10x3/uL (4.8-10.8)
[2019-02-05 09:27] LABS: PLATELET COUNT 45 10x3/uL (130-400)
[2019-02-05 09:31] LABS: PLATELET ESTIMATE DECREASED
--- NOTE | 2019-02-05 09:35 | NUR ---
LAB CALLED WITH PLT COUNT OF 45. PAGED CHE COLES. NO ANSWER.
--- NOTE | 2019-02-05 10:08 | NUR ---
PAGED DR. CRAWFORD. DR. CRAWFORD NOT ROUNDING ON PT. WILL CONTACT DR. BISHOP.
--- NOTE | 2019-02-05 10:14 | NUR ---
TRIED TO CALL DR. BISHOP OFFICE AT [phone], NO ANSWER. WILL TRY AGAIN.
[2019-02-05 10:20] LABS: INR 1.14 (0.85-1.17); PROTIME 14.1 SECONDS (11.6-15.0)
--- NOTE | 2019-02-05 11:44 | NUR ---
PT TO SPECIALS FOR CT GUIDED PARACENTESIS
--- NOTE | 2019-02-05 13:05 | NUR ---
PT BACK FROM CT VIA BED
--- NOTE | 2019-02-05 15:27 | MORECARE ---
CASE MANAGEMENT DISCHARGE SUMMARY PATIENT: SOLOMON NUNEZ UNIT: [id number] ADM DATE: 02/04/19 AGE: 54 : 63 SEX: F ROOM/BED: D.1209 AUTHOR: RENATO DAVIS PHYSICIAN: REFERRING PHYSICIAN: KELLY CUMMINGS MD DATE OF SERVICE: 02/05/19 Discharge Plan Patient Name: SOLOMON NUNEZ Facility: [facility]:[place] : 1965 Planned Disposition: Anticipated Discharge Date: Discharge Date: Expected LOS: Initial Reviewer: [email or web address] Initial Review Date: 02/05/2019 Generated: 02/05/19 4:27 pm Comments DCP- Discharge Planning Updated by [email or web address]: Susana Higginbotham on 02/05/19 2:[address] Patient Name: SOLOMON NUNEZ Admission Status: ER Accout number: [id number] Admission Date: 02-04-2019 : 1965 Admission Diagnosis: Attending: KELLY CUMMINGS Current LOS: 1 Anticipated DC Date: Planned Disposition: Primary Insurance: MEDICAID [place] Discharge Planning Comments: CM MET WITH PATIENT AND HER CARLEY ABOUT DC PLANNING/NEEDS. DENIES ANY NEEDS AT TIME OF DISCHARGE. PLANS TO DC TO HOME WITH . CM TO FOLLOW AND ASSIST NEEDED WITH DC PLANNING/NEEDS. Blocker Polishing: Susana Higginbotham DCPIA - Discharge Planning Initial Assessment Updated by [email or web address]: Susana Higginbotham on 02/05/19 3:22 pm * Is the patient Alert and Oriented? Yes * PCP JACKELINE/OBED * Pharmacy HOME [facility] * Preadmission Environment Home with Family * ADLs Independent * List name and contact numbers for known caregivers / representatives who currently or will assist patient after discharge: CARLEY, , * Additional services required to return to the preadmission environment? No * Can the patient safely return to the preadmission environment? Yes * Has this patient been hospitalized within the prior 30 days at any hospital? No Patient Name: SOLOMON NUNEZ Page [id number] at 1527 All edits/amendments must be made on the electronic document DICTATION DATE: 02/05/19 1526 FIRE OFFICER: SABINA 02/05/191525 RPT#: [id number] DC DATE: STATUS: ADM IN [facility] [address] [place] [address] END OF REPORT
--- NOTE | 2019-02-05 17:08 | NUR ---
PT REFUSED SCDS
--- NOTE | 2019-02-05 20:15 | NUR ---
FAMILY MEMBER AT BEDSIDE.
[2019-02-06] VITALS: BP 92/56
--- NOTE | 2019-02-06 01:59 | NUR ---
REST QUIELTY IN BED, CALL LIGHT IN REACH.
--- NOTE | 2019-02-06 03:15 | NUR ---
ASSESSED, PT IS ASLEEP WITH EASY UNLABORED RESPIRATIONS. NO DISTRESS NOTED AT THIS TIME.
--- NOTE | 2019-02-06 03:38 | NUR ---
REST QUIELTY IN BED, CALL LIGHT IN REACH.
[2019-02-06 04:00] VITALS: BP 114/65
--- NOTE | 2019-02-06 05:40 | NUR ---
REST IN BED, CALL LIGHT IN REACH.
[2019-02-06 06:43] LABS: ANION GAP 10.9 mmol/L (8-16); CALCIUM 7.9 mg/dL (8.5-10.1); CARBON DIOXIDE 28.6 mmol/L (21.0-32.0); CREATININE - SERUM 0.9 mg/dL (0.6-1.3); POTASSIUM - SERUM 4.5 mmol/L (3.5-5.1)
[2019-02-06 07:04] LABS: BASOPHILS 0.1 % (0-2); EOSINOPHILS 0.3 % (0-7); HEMATOCRIT 29.1 % (36.0-48.0); HEMOGLOBIN 9.3 g/dL (12-16); IMMATURE GRANULOCYTES 0.6 % (0-5); LYMPHOCYTES 30.4 % (15-50); MCH 28.7 pg (26.0-34.0); MCV 89.8 fL (80.0-100.0); MONOCYTES 1.6 % (2-11); RBC 3.24 10x6/uL (4.00-5.40); RDW 17.1 % (11.5-14.5)
[2019-02-06 07:05] LABS: WBC 6.8 10x3/uL (4.8-10.8)
[2019-02-06 07:07] LABS: PLATELET COUNT 43 10x3/uL (130-400)
--- NOTE | 2019-02-06 07:35 | NUR ---
ASSESSMENT COMPLETE. SL TO L AC. DENIES ANY NEEDS AT THIS TIME.
[2019-02-06 08:13] VITALS: BP 104/61
--- NOTE | 2019-02-06 12:00 | NUR ---
NO CHANGES NOTED AT THIS TIME.
[2019-02-06 12:10] VITALS: BP 107/67
--- NOTE | 2019-02-06 13:55 | NUR ---
SL REMOVED. CATHETER TIP INTACT. DISCHARGE TEACHING GIVEN TO PATIENT. VOICED UNDERSTANDING. AWAITING RIDE HOME FROM FAMILY.
--- NOTE | 2019-02-06 14:02 | NUR ---
DC'D HOME WITH FAMILY. ESCORTED TO VEHICLE BY PRESS OPERATOR ASSISTANT VIA WC WITH BELONGINGS.
[2019-02-07] MEDS ORDERED: LOMOTIL 2.5-0.1 EAC1 PO (04:39)
[2019-02-07] MEDS ORDERED: ZOFRAN ODT4 MG/UDTAB PO (04:39)
[2019-02-07] MEDS ORDERED: HYDROCODON-ACE1 EA10 PO (23:52)
--- NOTE | 2019-02-09 15:47 | MORECARE ---
CASE MANAGEMENT DISCHARGE SUMMARY PATIENT: SOLOMON NUNEZ UNIT: [id number] ADM DATE: 02/04/19 AGE: 54 : 63 SEX: F ROOM/BED: D.1209 AUTHOR: RENATO DAVIS PHYSICIAN: REFERRING PHYSICIAN: KELLY CUMMINGS MD DATE OF SERVICE: 02/09/19 Discharge Plan Patient Name: SOLOMON NUNEZ Facility: [facility]:[place] : 1965 Planned Disposition: Anticipated Discharge Date: Discharge Date: 02/06/2019 Expected LOS: Initial Reviewer: [email or web address] Initial Review Date: 02/05/2019 Generated: 02/09/19 4:47 pm Comments DCP- Discharge Planning Updated by [email or web address]: Susana Higginbotham on 02/05/19 2:[address] Patient Name: SOLOMON NUNEZ Admission Status: ER Accout number: [id number] Admission Date: 02-04-2019 : 1965 Admission Diagnosis: Attending: KELLY CUMMINGS Current LOS: 1 Anticipated DC Date: Planned Disposition: Primary Insurance: MEDICAID [place] Discharge Planning Comments: CM MET WITH PATIENT AND HER CARLEY ABOUT DC PLANNING/NEEDS. DENIES ANY NEEDS AT TIME OF DISCHARGE. PLANS TO DC TO HOME WITH . CM TO FOLLOW AND ASSIST NEEDED WITH DC PLANNING/NEEDS. Real Estate Agency Licensee: Susana Higginbotham DCPIA - Discharge Planning Initial Assessment Updated by [email or web address]: Susana Higginbotham on 02/05/19 3:22 pm * Is the patient Alert and Oriented? Yes * PCP JACKELINE/OBED * Pharmacy HOME [facility] * Preadmission Environment Home with Family * ADLs Independent * List name and contact numbers for known caregivers / representatives who currently or will assist patient after discharge: CARLEY, , * Additional services required to return to the preadmission environment? No * Can the patient safely return to the preadmission environment? Yes * Has this patient been hospitalized within the prior 30 days at any hospital? No Last DP export: 02/05/19 2:27 p Patient Name: SOLOMON NUNEZ Page [id number] at 1547 All edits/amendments must be made on the electronic document DICTATION DATE: 02/09/19 1546 CUT OUT WORKER: SABINA 02/09/19 1546 RPT#: [id number] DC DATE:02/06/19 STATUS: DIS IN [facility] [address] [place] [address] END OF REPORT
== END 2019-02-06 14:02 | disposition home or self-care (01) | DRG 755 ==
LOC: D.ER 19:31 → D.EDHOLD 21:40 → D.M3 21:40
PROVIDERS: Emergency Medicine; Radiology Diagnostic Radiology; ADMIT Family Medicine; ATTEND Family Medicine
PROC: 0W9G3ZZ Drainage of Peritoneal Cavity, Percutaneous Approach (ICD-10-PCS; principal; 2019-02-05 11:50)
DX: C56.9 Malignant neoplasm of unspecified ovary (principal); R18.0 Malignant ascites; J90 Pleural effusion, not elsewhere classified; E44.0 Moderate protein-calorie malnutrition; D70.2 Other drug-induced agranulocytosis; T45.1X5A Adverse effect of antineoplastic and immunosuppressive drugs, initial encounter; Z68.29 Body mass index [BMI] 29.0-29.9, adult; D69.59 Other secondary thrombocytopenia; D64.81 Anemia due to antineoplastic chemotherapy

== ENCOUNTER 2019-02-07 03:02 | Emergency (ER) | payer MEDICAID ==
[~2019-02-07] VITALS: Ht 160 cm; Wt 72.6 kg
[2019-02-07 03:07] VITALS: Ht 160 cm; Wt 72.6 kg
[2019-02-07 03:46] LABS: BASOPHILS 0.2 % (0-2); EOSINOPHILS 0 % (0-7); HEMATOCRIT 34.1 % (36.0-48.0); HEMOGLOBIN 10.9 g/dL (12-16); IMMATURE GRANULOCYTES 1.2 % (0-5); MCH 28.8 pg (26.0-34.0); NEUTROPHILS 73.6 % (40-80); RBC 3.79 10x6/uL (4.00-5.40); RDW 16.9 % (11.5-14.5); WBC 4.3 10x3/uL (4.8-10.8)
[2019-02-07 03:48] LABS: PLATELET COUNT 48 10x3/uL (130-400)
[2019-02-07 04:00] LABS: ALBUMIN 2.6 g/dL (3.4-5.0); ALKALINE PHOSPHATASE 76 U/L (46-116); ALT (SGPT) 11 U/L (10-68); BILIRUBIN - TOTAL 0.67 mg/dL (0.2-1.3); CALCIUM 8.5 mg/dL (8.5-10.1); CARBON DIOXIDE 23.9 mmol/L (21.0-32.0); CHLORIDE - SERUM 102 mmol/L (98-107); CREATININE - SERUM 0.8 mg/dL (0.6-1.3); POTASSIUM - SERUM 4.5 mmol/L (3.5-5.1); PROTEIN - SERUM 6.5 g/dL (6.4-8.2); SODIUM 137 mmol/L (136-145); eGFR NON AFRICAN AMERICAN 79 mL/min (90-120)
[2019-02-07 04:01] LABS: CALC OSMOLALITY 277 mosm/kg (275-300); GLUCOSE 143 mg/dL (74-106); UREA NITROGEN 19 mg/dL (7-18)
[2019-02-07 04:03] LABS: AMYLASE - SERUM 52 U/L (25-115); LIPASE 107 U/L (73-393)
[2019-02-07 04:06] LABS: TROPONIN-I < 0.017 ng/mL (0.000-0.060)
[2019-02-07 04:18] LABS: PLATELET ESTIMATE DECREASED
[2019-02-07] MEDS ORDERED: ZOFRAN ODT4 MG/UDTAB PO (04:39)
[2019-02-07] MEDS ORDERED: LOMOTIL 2.5-0.1 EAC1 PO (04:39)
[2019-02-07 05:10] VITALS: BP 122/83
[2019-02-07] MEDS ORDERED: HYDROCODON-ACE1 EA10 PO (23:52)
== END 2019-02-07 05:10 | disposition home or self-care (01) ==
LOC: D.ER 03:02
PROVIDERS: Emergency Medicine
DX: R11.10 Vomiting, unspecified (principal); R10.9 Unspecified abdominal pain; R19.7 Diarrhea, unspecified

== ENCOUNTER 2019-02-07 19:53 | Inpatient (IN) | payer MEDICAID ==
[~2019-02-07] VITALS: Ht 160 cm; Wt 72.6 kg
--- NOTE | ~2019-02-07 | HEMODYNAMI ---
PATIENT:SOLOMON NUNEZ MEDICAL RECORD: [id number] : 63 LOCATION:D.MS [id number] ADMISSION DATE: 02/07/19 Generatedon:02/15/201911:10 Patient name: SOLOMON NUNEZ Patient #: [id number] SSN: DO B: 1965 Date of study: 02/15/2019 Page: Of Hemodynamic Procedure Report Patient Data Patient Demographics Procedure consent was obtained First Name: SOLOMON Gender: Female Last Name: ENRIQUE : 1965 Patient #: [id number] Age: 54 year(s) Race: Unknown Additional ID: [id number] Contact details Address: [address] [place] [address] [id number] State: [place] City: [place] Zip code: [address] Past Medical History Allergies Allergen Reaction Date Comments Reported Penicillins 02/15/2019 Admission Admission Data Admission Date: 02/07/2019 Admission Time: 20:44 Room #: D.2228 Height (in.): 63 BSA: 1.76 (m2) Height (cm.): 160.02 BMI: 28.34 (kg/m2) Weight (lbs.): 160 Weight (kg.): 72.57 Procedure Procedure Types Cath Procedure Peripheral Cath Diagnostic Procedure Shipping Clerk/Admin Peripheral Procedures Miscellaneous Pleurex Pleurex Cath Place w/ Imaging Procedure Description Procedure Date Procedure Date: 02/15/2019 Procedure Start Time: 10:17 Procedure Staff Name Function Beni Maldonado MD Performing Physician Denisha Armas RT Manager Sap Deborah Scherer RN Nurse Florencio Ortiz RT Scrub Lobo Westfall CRNA Additional personnel Procedure Data Cath Procedure Fluoroscopy Diagnostic fluoroscopy Total fluoroscopy Time: 2.3 time: 2.3 min min Diagnostic fluoroscopy Total fluoroscopy dose: 59 dose: 59 mGy mGy Procedure Medications Medication Administration Route Dosage Lidocaine 1% added to field 20 Heparin Flush Bag added to field 1 bags (1000units/500ml NS) Hemodynamics Rest BSA: 1.76 (m2) O2 Consumption: Estimated: 222.92 (ml/min) O2 Consumption indexed : Estimated:126.66 (ml/min/m) Heart Rate: 150 (bpm) Snapshots Pre Cath Intra NCS Post Cath Vital Signs Time Heart Resp SPO2 etCO2 NIBP Rhythm Pain Sedation Rate (ipm) (%) (mmHg) (mmHg) Status Level (bpm) 9:44:49 149 10 35.6 117/77(94) NSR 0 (11) 9(A) , No pain 9:48:55 149 11 37.2 112/70(91) NSR 0 (11) 9(A) , No pain 9:53:02 147 16 33.4 113/76(99) NSR 0 (11) 9(A) , No pain 9:56:03 145 20 98 12.9 Measuring NSR 0 (11) 9(A) , No pain 9:56:38 144 24 98 18.2 Disturbed NSR 0 (11) 8(A) , No pain 9:58:30 142 13 96 12.1 110/73(91) NSR 0 (11) 8(A) , No pain 10:00:31 143 14 97 30.4 114/83(99) NSR 0 (11) 8(A) , No pain 10:02:36 139 13 98 21.2 116/72(90) NSR 0 (11) 8(A) , No pain 10:04:41 123 15 97 8.3 117/70(93) NSR 0 (11) 8(A) , No pain 10:06:46 137 12 96 11.3 111/70(82) NSR 0 (11) 8(A) , No pain 10:08:51 136 12 97 9.1 110/69(86) NSR 0 (11) 8(A) , No pain 10:10:56 157 12 97 0 109/67(85) NSR 0 (11) 8(A) , No pain 10:13:00 135 11 96 0 116/68(88) NSR 0 (11) 8(A) , No pain 10:15:08 134 17 96 0 105/67(85) NSR 0 (11) 8(A) , No pain 10:17:10 132 12 96 1.5 103/66(79) NSR 0 (11) 8(A) , No pain 10:19:13 131 12 96 31.1 106/62(86) NSR 0 (11) 8(A) , No pain 10:21:18 131 14 96 29.6 104/62(87) NSR 0 (11) 8(A) , No pain 10:23:21 130 12 96 23.5 104/65(78) NSR 0 (11) 8(A) , No pain 10:25:24 130 10 95 31.1 110/61(83) NSR 0 (11) 8(A) , No pain 10:27:29 130 11 95 31.8 104/65(78) NSR 0 (11) 8(A) , No pain 10:29:32 130 11 95 33.4 100/61(76) NSR 0 (11) 8(A) , No pain 10:31:33 131 12 94 26.5 103/65(74) NSR 0 (11) 8(A) , No pain 10:33:36 131 10 94 30.3 107/62(75) NSR 0 (11) 8(A) , No pain 10:35:41 131 9 94 37.2 105/64(74) NSR 0 (11) 8(A) , No pain 10:37:43 131 13 94 31.8 103/63(74) NSR 0 (11) 8(A) , No pain 10:39:46 131 13 92 32.6 104/63(75) NSR 0 (11) 8(A) , No pain 10:41:51 131 15 91 0 105/61(77) NSR 0 (11) 8(A) , No pain 10:43:56 132 6 91 0 107/61(77) NSR 0 (11) 8(A) , No pain 10:46:01 131 9 92 2.2 107/65(77) NSR 0 (11) 8(A) , No pain 10:48:04 131 6 83 22 112/71(82) NSR 0 (11) 8(A) , No pain 10:50:09 132 10 91 17.4 107/64(84) NSR 0 (11) 8(A) , No pain 10:52:12 130 11 97 14.4 112/70(87) NSR 0 (11) 8(A) , No pain 10:53:05 130 12 97 19.7 102/64(80) NSR 0 (11) 8(A) , No pain 10:56:04 134 11 98 26.5 Measuring NSR 0 (11) 8(A) , No pain 10:56:40 133 1 98 32.6 111/72(92) NSR 0 (11) 8(A) , No pain 10:58:41 136 9 93 13.6 113/78(93) NSR 0 (11) 8(A) , No pain 11:00:46 139 8 91 12.1 125/73(89) NSR 0 (11) 8(A) , No pain 11:02:55 140 10 91 11.3 112/73(88) NSR 0 (11) 8(A) , No pain 11:04:56 142 16 94 37.9 116/82(92) NSR 0 (11) 8(A) , No pain 11:06:59 135 11 95 37.1 117/80(94) NSR 0 (11) 8(A) , No pain 11:09:02 139 9 97 35.6 117/78(96) NSR 0 (11) 8(A) , No pain Medications Time Medication Route Dose Verified Delivered Reason Notes Effec tiveness by by 9:27:52 Lidocaine 1% added 20ml Beni Bazan for local to vial Erica Maldonado anesthetic field MD OSEI 9:28:05 Heparin Flush added 1 Beni Bazan used for Bag to bags Erica Maldonado procedure (1000units/500ml field MD OSEI NS) Procedure Log Time Note 9:17:16 Patient Height : 63 inches 9:17:25 Patient Weight : 160 lbs 9:18:01 Time tracking: Regular hours (M-F 7:00 - 5:00) 9:26:02 PLEURX PERITON drainage catheter ([id number]) opened to sterile field. 9:26:27 Dermabond Pen opened to sterile field. 9:26:33 Use device set IR Diagnostic 9:26:46 Sterile Angiographic Pack opened to sterile field. 9:26:47 Bag Decanter () opened to sterile field. 9:26:55 - 9:27:09 Patient received from Med/Surg to IR Alert and oriented. Tansferred to table in Supine position. 9:27:11 Correct patient and procedure confirmed by team. 9:27:14 Signed procedure consent form obtained from patient. 9:27:30 H&P Date Dictated: 02/15/2019 Within 30 days and on chart.. ::33 Pre-procedure instructions explained to patient. ::33 Pre-op teaching completed and patient verbalized understanding. 9:27:36 Family in waiting room. 9::39 Patient NPO since Midnight. ::52 Lidocaine 1% 20ml vial added to field was administered by Beni mcclain MD; for local anesthetic; 9:28:05 Heparin Flush Bag (1000units/500ml NS) 1 bags added to field was administered by Beni Maldonado MD; used for procedure; 9:28:17 Patient allergic to Penicillins 9:28:25 Is the patient allergic to Iodine/contrast media? No. 9:28:33 - 9:28:33 ----Pre-sedation anethsthesia assessment.----see anesthesia notes for monitoring of during procedure 9:29:27 - 9:29:52 IV patent on arrival in port with D5/.45%NaCl at KVO. 9:30:10 Left abdomen area was prepped with chlora-prep and draped in sterile fashion 9:30:12 - 9:43:49 ECG and BP/O2 sat monitors applied to patient. 9:43:53 Baseline sample Acquired. :43:53 Vital chart was started 10:05:13 anesthesia per kosta mims crna 10:13:10 Full Disclosure recording started 10:13:11 - 10:16:34 Physician arrived 10:16:38 --------ALL STOP TIME OUT------ 10:16:39 Final Timeout: patient, procedure, and site verified with staff and physician. All members of the team are in agreement. 10:17:12 Procedure started. 10:17:17 Local anesthetic to Abdominal area with Lidocaine 1% by Beni Maldonado MD.INITIAL ACCESS ONLY 10:39:59 pleurX cath placed in left abdomen and sutured in place 10:43:59 Fluoroscopy time 02.30 minutes. 10:44:15 Fluoroscopy dose: 59 mGy 10:44:15 Flurop Dose total: 59 10:46:17 Procedure ended.(Physican Out) 10:48:23 Procedure and supply charges have been captured, reviewed, submitted an d are correct. 10:50:26 Report given to Med/Surg. 11:10:20 Vital chart was stopped Device Usage Item Name Manufacture Quantity Catalog Hospital Part Current Minimal Lot# / Number Charge Number Stock Stock Serial# Code PLEURX CareFusion 1 [id number] PERITON drainage catheter ([id number]) Dermabond Ethicon 1 [id number] 5 Pen Sterile Cardinal 1 [id number] 5 Angiographic Health Pack Bag Decanter Microtek 1 [id number] 5 (2002S) Medical Inc[employer] Signature Audit Mobile Stage Time Signature Unsigned Intra-Procedure 02/15/2019 Denisha Armas 11:10:14 AM RT(R) [facility] [address] [place] [address]
[~2019-02-07 19:53] MED LIST changes: +LOMOTIL 2.5-0.1 EAC1 PO
[2019-02-07 20:46] VITALS: BP 108/81
[2019-02-07 20:49] LABS: HEMATOCRIT 33.7 % (36.0-48.0); HEMOGLOBIN 10.9 g/dL (12-16); MCH 29.1 pg (26.0-34.0); MCHC 32.3 g/dL (31.0-37.0); MCV 90.1 fL (80.0-100.0); PLATELET COUNT 56 10x3/uL (130-400); RBC 3.74 10x6/uL (4.00-5.40); WBC 3.2 10x3/uL (4.8-10.8)
[2019-02-07 21:02] LABS: ALBUMIN 2.6 g/dL (3.4-5.0); ANION GAP 14.4 mmol/L (8-16); BILIRUBIN - TOTAL 0.67 mg/dL (0.2-1.3); CALCIUM 8.5 mg/dL (8.5-10.1); CARBON DIOXIDE 20.1 mmol/L (21.0-32.0); CREATININE - SERUM 0.9 mg/dL (0.6-1.3); POTASSIUM - SERUM 4.5 mmol/L (3.5-5.1); PROTEIN - SERUM 6.3 g/dL (6.4-8.2)
--- NOTE | 2019-02-07 21:33 | NUR ---
PT ARRIVED ON UNIT VIA WHEELCHAIR ESCORTED BY ER NURSE AND FAMILY MEMBERS. POSITIONED IN BED FOR COMFORT. IV IN LEFT HAND SALINE LOCKED. NPO STATUS WITH SIGNAGE ON DOOR. WILL MONITOR FOR NEEDS.
[2019-02-07 21:35] LABS: EOSINOPHILS 1 % (0-7); LYMPHOCYTES 26 % (15-50); MONOCYTES 9 % (2-11); NEUTROPHILS 62 % (40-80); PLATELET ESTIMATE DECREASED; PLATELET MORPHOLOGY GIANT PLTS PRESENT
--- NOTE | 2019-02-07 21:41 | NUR ---
STARTED IV FLUIDS PER ORDER...D5NS @ 75 ML / HR.
[2019-02-07 23:45] VITALS: BP 105/72; BMI 28.4
[2019-02-07] MEDS ORDERED: HYDROCODON-ACE1 EA10 PO (23:52)
--- NOTE | 2019-02-07 23:54 | NUR ---
ADMISSION ASSESSMENT AND HISTORY COMPLETE.
[2019-02-08] VITALS: BP 93/66
--- NOTE | 2019-02-08 00:35 | NUR ---
GAVE DILAUDID 1 MG AND ZOFRAN 4 MG IVP FOR C/O NAUSEA AND PAIN; PER PRN ORDERS. WILL MONITOR FOR EFFECTIVENESS. MOTHER IS AT BEDSIDE.
--- NOTE | 2019-02-08 03:37 | NUR ---
COLLECTED URINE FOR ORDERED UA AND DELIVERED TO LAB.
[2019-02-08 04:00] VITALS: BP 99/66
[2019-02-08 08:55] VITALS: BP 105/62
[2019-02-08 09:09] LABS: BASOPHILS 0.3 % (0-2); EOSINOPHILS 0.3 % (0-7); HEMATOCRIT 30.5 % (36.0-48.0); HEMOGLOBIN 9.7 g/dL (12-16); IMMATURE GRANULOCYTES 2.7 % (0-5); LYMPHOCYTES 54.2 % (15-50); MCH 28.9 pg (26.0-34.0); MCHC 31.8 g/dL (31.0-37.0); MCV 90.8 fL (80.0-100.0); MONOCYTES 10.3 % (2-11); NEUTROPHILS 32.2 % (40-80); RBC 3.36 10x6/uL (4.00-5.40); RDW 17.1 % (11.5-14.5)
[2019-02-08 09:19] LABS: ANION GAP 9.9 mmol/L (8-16); CALCIUM 8.2 mg/dL (8.5-10.1); CREATININE - SERUM 0.9 mg/dL (0.6-1.3); POTASSIUM - SERUM 4.3 mmol/L (3.5-5.1)
[2019-02-08 09:20] LABS: CARBON DIOXIDE 27.4 mmol/L (21.0-32.0)
[2019-02-08 09:53] LABS: PLATELET COUNT 48 10x3/uL (130-400)
[2019-02-08 13:00] VITALS: BP 106/72
[2019-02-08 13:18] VITALS: BMI 28.3
[2019-02-08 15:46] VITALS: Ht 160 cm; Wt 72.6 kg
[2019-02-08 16:00] VITALS: BP 99/65
--- NOTE | 2019-02-08 18:49 | NUR ---
I have reviewed this patient and I concur with the Shift Assessment completed by the Licensed Practical Nurse today this shift.
--- NOTE | 2019-02-08 19:45 | NUR ---
PT LYING IN BED MOANING UPON ENTERING ROOM. STATED IT WAS HOT IN THE ROOM AND SHE FELT VERY NAUSEAS BUT HAS NOT HAD ANY EMESIS. TURNED TEMP DOWN IN ROOM, REMOVED BLANKETS FROM PT, APPLIED COLD RAGS TO PT FOREHEAD AND BACK OF NECK. PT STATED SHE WAS "HURTING BAD" GAVE DILAUDID ORDERED. ABD TENDER TO TOUCH. IV LEFT HAND INFUSING D5NS @ 75 W/ ZOFRAN DRIP. ALERT AND ORIENTED. PT WAS ABLE TO RELAX SOME AFTER DILAUDID. AT 2100 PT STATES SHE WAS STILL HURTING "REALLY BAD" GAVE NORCO ORDERED. UPON REASSESMENT PT PAIN HAD COME DOWN TO 5/10. MOTHER AT BEDSIDE. DENIES OTHER NEEDS OR COMPLAINTS AT THIS TIME. CL IN REACH, WILL CONT TO MONITOR
[2019-02-08 20:00] VITALS: BP 105/71
[2019-02-09] VITALS (13 sets, daily range): BP systolic 91–106; BP diastolic 61–72
[2019-02-09 06:50] LABS: ANION GAP 13.2 mmol/L (8-16); CALCIUM 7.5 mg/dL (8.5-10.1); CREATININE - SERUM 0.9 mg/dL (0.6-1.3); POTASSIUM - SERUM 4.2 mmol/L (3.5-5.1)
[2019-02-09 07:09] LABS: HEMATOCRIT 25.2 % (36.0-48.0); MCH 28.7 pg (26.0-34.0); MCHC 31.7 g/dL (31.0-37.0); MCV 90.3 fL (80.0-100.0); RBC 2.79 10x6/uL (4.00-5.40); RDW 17.1 % (11.5-14.5); WBC 2.7 10x3/uL (4.8-10.8)
[2019-02-09 07:17] LABS: PLATELET COUNT 47 10x3/uL (130-400)
--- NOTE | 2019-02-09 08:20 | NUR ---
PATIENT LYING IN BED. STATES PAIN LEVEL 5/10. GIVEN PRN DILAUDED. ALERT AND ORIENTED X 3. LUNGS CLEAR IN ALL BOWERS BILATERALLY. HEART SOUNDS HEARD AT S1 AND S2 IN ALL BOWERS. BOWEL SOUNDS HEARD X 4. STATES HAS HAD SOME DIARRHEA. DOCTOR AWARE. SKIN INTACT WITHOUT REDNESS. IV TO LEFT HAND PATENT WITHOUT REDNESS. MEDICATIONS GIVEN WITHOUT DIFFICULTY. DENIES FURTHER NEEDS. WILL CONTINUE TO MONITOR.
[2019-02-09 09:06] LABS: LYMPHOCYTES 31 % (15-50); MONOCYTES 7 % (2-11); NEUTROPHILS 57 % (40-80); PLATELET ESTIMATE DECREASED
--- NOTE | 2019-02-09 10:06 | NUR ---
attempted to start an iv in the right forearm + flash then flushed and it blew. This was with a 20 1/4 in iv. removed with catheter intact. 20 gauge 1 inch started in right wrist by April Ac rn Flushed without difficulty, secured with tegaderm
--- NOTE | 2019-02-09 10:23 | MORECARE ---
CASE MANAGEMENT DISCHARGE SUMMARY PATIENT: SOLOMON NUNEZ UNIT: [id number] ADM DATE: 02/07/19 AGE: 54 : 63 SEX: F ROOM/BED: D.2228 AUTHOR: RENATO DAVIS PHYSICIAN: REFERRING PHYSICIAN: ARMIN VILLARREAL MD DATE OF SERVICE: 02/09/19 Discharge Plan Patient Name: SOLOMON NUNEZ [facility] [facility] 1965 Planned Disposition: Home Anticipated Discharge Date: Discharge Date: Expected LOS: Initial Reviewer: [email or web address] Initial Review Date: 02/09/2019 Generated: 02/09/19 11:23 am DCPIA - Discharge Planning Initial Assessment Updated by [email or web address]: Iris An on 02/09/19 10:22 am * Is the patient Alert and Oriented? Yes * How many steps to enter\exit or inside your home? 0/0 * PCP Dr. De La Torre or Russell * Pharmacy Home [facility] * Preadmission Environment Home with Family * ADLs Partial Dependent * Partial ADLs (Assistance needed) Medication Management * Equipment None * List name and contact numbers for known caregivers / representatives who currently or will assist patient after discharge: Diego - - [phone] Triny - mother - [phone] * Verbal permission to speak to the caregivers and representatives has been obtained from the patient. Yes * Community resources currently utilized None * Additional services required to return to the preadmission environment? No * Can the patient safely return to the preadmission environment? Yes * Has this patient been hospitalized within the prior 30 days at any hospital? Yes Patient Name: SOLOMON NUNEZ Page [id number] at 1023 All edits/amendments must be made on the electronic document DICTATION DATE: 02/09/19 1023 CHICK GRADER: SABINA 02/09/19 1023 RPT#: [id number] DC DATE: STATUS: ADM IN [facility] [address] [place] [address] END OF REPORT
--- NOTE | 2019-02-09 10:31 | MORECARE ---
CASE MANAGEMENT DISCHARGE SUMMARY PATIENT: SOLOMON NUNEZ UNIT: [id number] ADM DATE: 02/07/19 AGE: 54 : 63 SEX: F ROOM/BED: D.2228 AUTHOR: RYAN,DOC PHYSICIAN: REFERRING PHYSICIAN: ARMIN VILLARREAL MD DATE OF SERVICE: 02/09/19 Discharge Plan Patient Name: SOLOMON NUNEZ Facility: [facility]:[place] : 1965 Planned Disposition: Home Anticipated Discharge Date: Discharge Date: Expected LOS: Initial Reviewer: [email or web address] Initial Review Date: 02/09/2019 Generated: 02/09/19 11:30 am Comments DCP- Discharge Planning Updated by [email or web address]: Iris An on 02/09/19 9:[address] Patient Name: SOLOMON NUNEZ Admission Status: ER Accout number: [id number] Admission Date: 02-07-2019 : 1965 Admission Diagnosis: Attending: ARMIN VILLARREAL Current LOS: 2 Anticipated DC Date: Planned Disposition: Home Primary Insurance: MEDICAID [place] Discharge Planning Comments: CM met with patient, she is alone in the room. States she lives with her , 2 adult daughters and 7 year old son. She states she is partially dependent on her . States her helps her with her medications if "I don't feel well". I discussed the availability of SNF, rehab, home health and DME. She states her discharge plan is to return home with her . States she does not need any DME or home health at this time. CM will continue to follow and assist with discharge planning/needs. Automatic Glove Turner And Former: Iris An DCPIA - Discharge Planning Initial Assessment Updated by [email or web address]: Iris An on 02/09/19 10:22 am * Is the patient Alert and Oriented? Yes * How many steps to enter\\exit or inside your home? 0/0 * PCP Dr. De La Torre or [place] * Pharmacy [place] * Preadmission Environment Home with Family * ADLs Partial Dependent * Partial ADLs (Assistance needed) Medication Management * Equipment None * List name and contact numbers for known caregivers / representatives who currently or will assist patient after discharge: Diego - - [phone] Triny - mother - [phone] * Verbal permission to speak to the caregivers and representatives has been obtained from the patient. Yes * Community resources currently utilized None * Additional services required to return to the preadmission environment? No * Can the patient safely return to the preadmission environment? Yes * Has this patient been hospitalized within the prior 30 days at any hospital? Yes Last DP export: 02/09/19 9:23 a Patient Name: SOLOMON NUNEZ Page [phone] at 1031 All edits/amendments must be made on the electronic document DICTATION DATE: 02/09/19 1030 DIRECTOR PUBLIC POLICY: SABINA 02/09/19 1030 RPT#: [id number] DC DATE: STATUS: ADM IN [facility] [address] [place] [address] END OF REPORT
--- NOTE | 2019-02-09 10:34 | NUR ---
FIRST UNIT OF BLOOD INFUSING. VITALS STABLE. WILL CONTINUE TO MONITOR.
--- NOTE | 2019-02-09 12:24 | NUR ---
BLOOD STILL INFUSING. VITALS STABLE.
--- NOTE | 2019-02-09 13:54 | NUR ---
BLOOD INFUSION COMPLETE. VITALS STABLE. STATES STILL IN PAIN AFTER PRN DILAUDID. PRN NORCO GIVEN. WILL CONTINUE TO MONITOR.
--- NOTE | 2019-02-09 14:57 | NUR ---
SECOND BAG OF BLOOD INFUSING. VITALS STABLE. WILL CONTINUE TO MONITOR
--- NOTE | 2019-02-09 15:25 | NUR ---
NEW BAG OF SANTANA CASTILLO. DENIES FURTHER NEEDS AT THIS TIME. WILL CONTINUE TO MONITOR.
--- NOTE | 2019-02-09 17:30 | NUR ---
STATES IN PAIN 05/26. PRN DILAUDID GIVEN PER REQUEST. WILL CONTINUE TO MONITOR
--- NOTE | 2019-02-09 18:06 | NUR ---
BLOOD INFUSION COMPLETE. VITALS STABLE
--- NOTE | 2019-02-09 18:06 | NUR ---
STATES PAIN STILL 6/10 AFTER PRN DILAUDID. PRN NORCO GIVEN. WILL CONTINUE TO MONITOR
--- NOTE | 2019-02-09 18:53 | NUR ---
RESTING IN BED. DENIES PAIN. DENIES NEEDS.
--- NOTE | 2019-02-09 19:45 | NUR ---
PT SITTING UP IN BED, NO SIGNS OF DISTRESS. ALERT AND ORIENTED. IV RIGHT HAND SL, FLUSHES EASILY. IV LEFT HAND INFUSING D5NS @ 75 AND ZOFRAN @ 4.7. ABD DISTENDED, TENDER. BOWEL SOUNDS HYPOACTIVE. PT STATES SHE HAS CONSTANT PAIN MID ABD 4/10, WORSE WHEN SHE MOVES AROUND. GIVING NORCO AND DILAUDID ORDERED. DENIES NEEDS AT THIS TIME. CL IN REACH, WILL CONT TO MONITOR
[2019-02-10] VITALS (13 sets, daily range): BP systolic 96–135; BP diastolic 64–84
[2019-02-10 06:01] LABS: BASOPHILS 0.2 % (0-2); EOSINOPHILS 0.6 % (0-7); IMMATURE GRANULOCYTES 1.3 % (0-5); LYMPHOCYTES 28.5 % (15-50); MCH 29.2 pg (26.0-34.0); MCHC 32.6 g/dL (31.0-37.0); MCV 89.4 fL (80.0-100.0); MONOCYTES 5.1 % (2-11); NEUTROPHILS 64.3 % (40-80); RDW 17.5 % (11.5-14.5)
[2019-02-10 06:03] LABS: HEMATOCRIT 33.7 % (36.0-48.0); RBC 3.77 10x6/uL (4.00-5.40); WBC 5.3 10x3/uL (4.8-10.8)
[2019-02-10 06:05] LABS: CALC OSMOLALITY 277 mosm/kg (275-300); CALCIUM 7.7 mg/dL (8.5-10.1); CARBON DIOXIDE 23.4 mmol/L (21.0-32.0); CHLORIDE - SERUM 105 mmol/L (98-107); CREATININE - SERUM 0.8 mg/dL (0.6-1.3); GLUCOSE 82 mg/dL (74-106); POTASSIUM - SERUM 3.7 mmol/L (3.5-5.1); SODIUM 139 mmol/L (136-145); UREA NITROGEN 15 mg/dL (7-18); eGFR NON AFRICAN AMERICAN 79 mL/min (90-120)
[2019-02-10 06:07] LABS: PLATELET COUNT 41 10x3/uL (130-400)
--- NOTE | 2019-02-10 13:12 | NUR ---
NUTRITION F/U PT CURRENTLY NPO FOR PROCEDURE. WILL PROVIDE DIET WHEN RESUMED, HONOR FOOD PREFERENCES. MONITOR PO INTAKE. RD FOLLOWING
--- NOTE | 2019-02-10 16:50 | NUR ---
PT RETURNED TO ROOM AT 1640, POST OP VITALS STARTED, PT C/O PAIN AT A 10 IN ABD, BACK AND SHOULDERS, PLACED AN ICE PACK OVER PORT AREA, FAMILY AT BEDSIDE, RESTARTED PT IV FLUIDS AND PAIN PUMP, CONTINUE WITH PLAN OF CARE
--- NOTE | 2019-02-10 17:41 | NUR ---
GOLYTELY GIVEN TO PATIENT WITH INSTRUCTIONS TO DRINK MUCH SHE CAN UNTIL MN. OFFERED PHENERGAN FOR NAUSEA. STATED SHE DIDNT WANT IT AND SHE WOULD TRY TO DRINK THE GOLYTELY WHEN SHE COULD. FAMILY AT BEDSIDE. VS STABLE. CALL LIGHT WITHIN REACH.
--- NOTE | 2019-02-10 18:00 | NUR ---
NOTIFIED DR. ROTHMAN PATIENT REFUSES GOLYTELY. NEW ORDERS RECIEVED AND CARRIED OUT.
--- NOTE | 2019-02-10 21:00 | NUR ---
INFORMED PT HOB NEEDED TO BE ELEVATED 45 DEGREES. PT COMPLIED
--- NOTE | 2019-02-10 21:00 | NUR ---
PT DENIES APPETITE. REPORTS DISCOMFORT IN BACK AND ABDOMEN, BOWEL SOUNDS HYPOACTIVE.. WILL CONTINUE TO MONITOR.
--- NOTE | 2019-02-11 02:06 | NUR ---
I have reviewed this patient and I concur with the Shift Assessment completed by the Licensed Practical Nurse today this shift.
[2019-02-11 03:58] LABS: APPEARANCE CLEAR (CLEAR); BILIRUBIN NEGATIVE (NEGATIVE); COLOR DK YELLOW (YELLOW); GLUCOSE NEGATIVE (NEGATIVE); KETONE NEGATIVE (NEGATIVE); NITRITE NEGATIVE (NEGATIVE); PROTEIN NEGATIVE (NEGATIVE)
[2019-02-11 04:46] VITALS: BP 110/67
[2019-02-11 06:46] LABS: ANION GAP 13.9 mmol/L (8-16); CALCIUM 8.2 mg/dL (8.5-10.1); CARBON DIOXIDE 24.3 mmol/L (21.0-32.0); POTASSIUM - SERUM 4.2 mmol/L (3.5-5.1)
[2019-02-11 06:50] LABS: CREATININE - SERUM 1.4 mg/dL (0.6-1.3)
[2019-02-11 06:52] LABS: HEMATOCRIT 32.4 % (36.0-48.0); HEMOGLOBIN 10.4 g/dL (12-16); MCH 28.8 pg (26.0-34.0); MCHC 32.1 g/dL (31.0-37.0); MCV 89.8 fL (80.0-100.0); RBC 3.61 10x6/uL (4.00-5.40); RDW 17.7 % (11.5-14.5)
[2019-02-11 06:54] LABS: WBC 3.9 10x3/uL (4.8-10.8)
[2019-02-11 06:56] LABS: PLATELET COUNT 40 10x3/uL (130-400)
--- NOTE | 2019-02-11 08:45 | NUR ---
PATIENT IN BED WITH IV INTACT. NO COMPLAINTS OR SIGNS OF DISTRESS. CALL LIGHT WITHIN REACH.
[2019-02-11 09:03] LABS: ANISOCYTOSIS OCC; LYMPHOCYTES 25 % (15-50); MONOCYTES 4 % (2-11); NEUTROPHILS 61 % (40-80); PLATELET ESTIMATE DECREASED
[2019-02-11 09:35] VITALS: BP 126/82
[2019-02-11 13:24] VITALS: BP 100/68
[2019-02-11 17:46] VITALS: BP 144/69
--- NOTE | 2019-02-11 19:24 | NUR ---
PATIENT STATED SHE HAD HAD A FEW BMS TODAY. DIARRHEA X 2 AND THEN LAST BOWEL MOVEMENT HAD SMALL AMOUNT OF FORMED STOOL IN IT. STATES SHE DOESNT WANT MOM TONIGHT. IV INTACT. NO COMPLAINTS OR SIGNS OF DISTRESS. NOTIFIED JANINE ESCOTO.
[2019-02-11 20:00] VITALS: BP 109/73
--- NOTE | 2019-02-11 21:15 | NUR ---
PT IN ROOM WITH FAMILY, GETTING INTO BED. PT REPORTS TIREDNESS/WEAKNESS, BUT NO LOOSE STOOLS RECENTLY. PT ALSO REQUEST FLUIDS NOT RUN AT 75 DUE TO SWELLING AND WOULD LIKE IT TO NOT RUN FASTER THAN 30.
[2019-02-12] VITALS: BP 116/72
[2019-02-12 04:00] VITALS: BP 117/73
[2019-02-12 05:12] LABS: BASOPHILS 0 % (0-2); EOSINOPHILS 0 % (0-7); HEMATOCRIT 33.4 % (36.0-48.0); HEMOGLOBIN 10.8 g/dL (12-16); IMMATURE GRANULOCYTES 2.2 % (0-5); LYMPHOCYTES 32.1 % (15-50); MCH 28.8 pg (26.0-34.0); MCHC 32.3 g/dL (31.0-37.0); MCV 89.1 fL (80.0-100.0); MONOCYTES 4.9 % (2-11); NEUTROPHILS 60.8 % (40-80); RBC 3.75 10x6/uL (4.00-5.40); RDW 17.7 % (11.5-14.5); WBC 2.7 10x3/uL (4.8-10.8)
[2019-02-12 05:13] LABS: PLATELET COUNT 37 10x3/uL (130-400)
[2019-02-12 05:35] LABS: CALCIUM 8.2 mg/dL (8.5-10.1); CARBON DIOXIDE 22.7 mmol/L (21.0-32.0); CREATININE - SERUM 1.2 mg/dL (0.6-1.3); POTASSIUM - SERUM 3.7 mmol/L (3.5-5.1)
--- NOTE | 2019-02-12 07:31 | NUR ---
I CONCUR WITH SCRIPT WORKER ASSESSMENT.
--- NOTE | 2019-02-12 08:00 | NUR ---
PATIENT IN BED WITH IV INTACT. NO COMPLAINTS OR SIGNS OF DISTRESS. CALL LIGHT WITHIN REACH.
[2019-02-12 09:51] LABS: APTT 38.8 SECONDS (22.8-39.4); INR 1.33 (0.85-1.17); PROTIME 15.9 SECONDS (11.6-15.0)
[2019-02-12 09:57] VITALS: BP 116/78
--- NOTE | 2019-02-12 12:45 | NUR ---
PATIENT IV'S INTACT. COMPLAINTS OF PAIN AND NAUSEA. STATED ZOFRAN DIDNT WORK. PHENERGAN 25 MG GIVEN OVER 3 MINUTES IN INFUSAPORT. PORT FLUSHES AND DRAWS BACK BLOOD WITH NO PROBLEMS. PATIENT AWAITING PARACENTESIS. CALL LIGHT WITHIN REACH. ALSO RECIEVED 1 MG DIL. BOLUS FOR PAIN.
--- NOTE | 2019-02-12 12:55 | NUR ---
PATIENT TO GET PARACENTESIS. NO COMPLAINTS. FAMILY AT SIDE.
--- NOTE | 2019-02-12 16:00 | NUR ---
PATIENT IN BED WITH EYES CLOSED RESTING QUIETLY. VS STABLE. NO COMPLAINTS OR SIGNS OF DISTRESS. FAMILY AT BEDSIDE. CALL LIGHTW ITHCELESTINA MONTOYA.
[2019-02-12 17:57] VITALS: BP 108/70
--- NOTE | 2019-02-12 18:45 | NUR ---
PATIENT IN BED WITH EYES OPEN WITH NO COMPLAINTS AT THIS TIME. IV'S AND PORT INTACT. FAMILY AT BEDSIDE. CALL LIGHT WITHIN REACH. VS STABLE. CALL LIGHT WITHIN REACH.
--- NOTE | 2019-02-12 19:15 | NUR ---
RECEIVED CARE FROM DAY NURSE. LYING IN BED WITH COMPANY AT SIDE. REPORTS NO NEEDS AT THIS TIME. CALL LIGHT AT SIDE.
[2019-02-12 20:03] VITALS: BP 108/73
--- NOTE | 2019-02-12 21:27 | NUR ---
TEMP 102.8 AX. TYLENOL GIVEN AND I/S WITH INSTRUCTIONS ON USE.
--- NOTE | 2019-02-12 23:29 | NUR ---
TEMP 102.2. SPOKE WITH DR VILLARREAL WITH NEW ORDERS RECEIVED AND ENTERED INTO THE COMPUTER.
--- NOTE | 2019-02-12 23:30 | NUR ---
DR AWARE OF REPORTED PCN ALLERGY AND WANTS ORDERED ABX.
[2019-02-12 23:47] VITALS: BP 108/64
[2019-02-13 04:00] VITALS: BP 110/68
--- NOTE | 2019-02-13 04:59 | NUR ---
I have reviewed this patient and I concur with the Shift Assessment completed by the Licensed Practical Nurse today this shift.
--- NOTE | 2019-02-13 07:01 | NUR ---
CALL FROM TELEMETRY X3 DURING THE NIGHT ABOUT INCREASED HR. PT AMBULATING TO BATHROOM EVERY TIME THIS OCCURRED.
[2019-02-13 08:44] VITALS: BP 110/67
--- NOTE | 2019-02-13 10:08 | NUR ---
Nutrition Follow Up: Recieved consult for TPN Per weekend policy will start Procalamine at 50mL/hour and Nutrition Support dietitian to start TPN on Friday RD following
[2019-02-13 12:32] VITALS: BP 103/69
[2019-02-13 17:14] VITALS: BP 108/73
--- NOTE | 2019-02-13 19:15 | NUR ---
RECEIVED CARE FROM DAY NURSE. LYING IN BED. REPORTS NO NEEDS AT THIS TIME. CALL LIGHT AT SIDE. IV INFUSING PER ORDER TO LEFT IP.
--- NOTE | 2019-02-13 19:21 | NUR ---
I have reviewed this patient and I concur with the Shift Assessment completed by the Licensed Practical Nurse today this shift.
[2019-02-13 20:02] VITALS: BP 103/70
[2019-02-14 00:49] VITALS: BP 102/61
[2019-02-14 05:07] VITALS: BP 161/58
--- NOTE | 2019-02-14 05:20 | NUR ---
STERILE DRESSING CHANGE TO LEFT IP.
[2019-02-14 05:59] LABS: ANION GAP 13.5 mmol/L (8-16); CALCIUM 7.8 mg/dL (8.5-10.1); CARBON DIOXIDE 24.5 mmol/L (21.0-32.0); CREATININE - SERUM 1.1 mg/dL (0.6-1.3); MAGNESIUM - SERUM 1.7 mg/dL (1.8-2.4)
[2019-02-14 06:09] LABS: MCH 29.1 pg (26.0-34.0); MCHC 31.9 g/dL (31.0-37.0); RDW 17.5 % (11.5-14.5); WBC 2.3 10x3/uL (4.8-10.8)
[2019-02-14 06:11] LABS: HEMATOCRIT 26.3 % (36.0-48.0); HEMOGLOBIN 8.4 g/dL (12-16); PLATELET COUNT 41 10x3/uL (130-400); RBC 2.89 10x6/uL (4.00-5.40)
[2019-02-14 08:44] VITALS: BP 114/76
[2019-02-14 08:53] LABS: ANISOCYTOSIS OCC; EOSINOPHILS 2 % (0-7); LYMPHOCYTES 34 % (15-50); MONOCYTES 11 % (2-11); NEUTROPHILS 39 % (40-80); PLATELET ESTIMATE DECREASED
[2019-02-14 13:21] VITALS: BP 117/79
[2019-02-14 17:30] VITALS: BP 120/76
--- NOTE | 2019-02-14 19:15 | NUR ---
RECEIVED CARE FROM DAY NURSE. LYING IN BED WITH COMPANY AT SIDE. REPORTS NO NEEDS AT THIS TIME. CALL LIGHT AT SIDE. IV INFUSING PER ORDER TO LEFT IP.
[2019-02-14 20:00] VITALS: BP 104/74
[2019-02-15] VITALS (10 sets, daily range): BP systolic 97–134; BP diastolic 64–80
[2019-02-15 05:31] LABS: ANION GAP 13.7 mmol/L (8-16); CALCIUM 8.4 mg/dL (8.5-10.1); CARBON DIOXIDE 24.6 mmol/L (21.0-32.0); MAGNESIUM - SERUM 1.8 mg/dL (1.8-2.4); POTASSIUM - SERUM 4.3 mmol/L (3.5-5.1)
[2019-02-15 05:34] LABS: BASOPHILS 0.6 % (0-2); EOSINOPHILS 0.6 % (0-7); HEMATOCRIT 25.1 % (36.0-48.0); HEMOGLOBIN 7.9 g/dL (12-16); IMMATURE GRANULOCYTES 7.7 % (0-5); LYMPHOCYTES 33.1 % (15-50); MCH 28.7 pg (26.0-34.0); MCHC 31.5 g/dL (31.0-37.0); MCV 91.3 fL (80.0-100.0); MONOCYTES 10.2 % (2-11); NEUTROPHILS 47.8 % (40-80); RBC 2.75 10x6/uL (4.00-5.40); RDW 17.6 % (11.5-14.5)
[2019-02-15 05:37] LABS: WBC 3.2 10x3/uL (4.8-10.8)
[2019-02-15 05:41] LABS: PLATELET COUNT 39 10x3/uL (130-400)
--- NOTE | 2019-02-15 06:41 | NUR ---
SPOKE WITH PATIENT ABOUT NG TUBE. PT REFUSES NG TUBE.
[2019-02-15 08:05] LABS: APTT 35.3 SECONDS (22.8-39.4); INR 1.34 (0.85-1.17)
--- NOTE | 2019-02-15 13:12 | NUR ---
VANCOMYCIN TROUGH WAS 34.5, DRAWN ON TIME. WILL HOLD VANCOMYCIN, AND RECHECK A RANDOM LEVEL WITH AM LABS REEVALUATE IN AM
--- NOTE | 2019-02-15 13:23 | NUR ---
NUTRITION F/U CONSULT FOR TPN NOTED. CURRENTLY WITH PROCALAMINE AT 50 CC/HR. WILL HOLD ON TPN FOR NOW. PER CHART REVIEW, PT CONSIDERING HOSPICE. RD FOLLOWING
--- NOTE | 2019-02-15 16:11 | MORECARE ---
CASE MANAGEMENT DISCHARGE SUMMARY PATIENT: SOLOMON NUNEZ UNIT: [id number] ADM DATE: 02/07/19 AGE: 54 : 63 SEX: F ROOM/BED: D.2228 AUTHOR: RYANDOC PHYSICIAN: REFERRING PHYSICIAN: ARMIN VILLARREAL MD DATE OF SERVICE: 02/15/19 Discharge Plan Patient Name: SOLOMON NUNEZ Facility: [facility]:[place] : 1965 Planned Disposition: Home Anticipated Discharge Date: Discharge Date: Expected LOS: Initial Reviewer: [email or web address] Initial Review Date: 02/09/2019 Generated: 02/15/19 5:11 pm Comments DCP- Discharge Planning Updated by [email or web address]: Iris An on 02/15/19 3:[address] I met with patient earlier today concerning order for Hospice consult. Patient is the only one in the room. She states her family will be here at 4PM today and she would like to discuss it with them first. Her mother called me after I left the room and has questions concerning hospice and is asking if her daughter can stay here with hospice. I informed her that she could and that we had a contract with [facility]. Her mother states she feels better now after her questions were answered. CM will continue to follow and assist with discharge planning/needs. DCP- Discharge Planning Updated by [email or web address]: Iris An on 02/09/19 9:[address] Patient Name: SOLOMON NUNEZ Admission Status: ER Accout number: [id number] Admission Date: 02-07-2019 : 1965 Admission Diagnosis: Attending: ARMIN VILLARREAL Current LOS: 2 Anticipated DC Date: Planned Disposition: Home Primary Insurance: MEDICAID [place] Discharge Planning Comments: CM met with patient, she is alone in the room. States she lives with her , 2 adult daughters and 7 year old son. She states she is partially dependent on her . States her helps her with her medications if "I don't feel well". I discussed the availability of SNF, rehab, home health and DME. She states her discharge plan is to return home with her . States she does not need any DME or home health at this time. CM will continue to follow and assist with discharge planning/needs. Continuous Miner Operator Helper: Iris An DCPIA - Discharge Planning Initial Assessment Updated by [email or web address]: Iris An on 02/09/19 10:22 am * Is the patient Alert and Oriented? Yes * How many steps to enter\\exit or inside your home? 0/0 * PCP Dr. De La Torre or Russell * Pharmacy Home [facility] * Preadmission Environment Home with Family * ADLs Partial Dependent * Partial ADLs (Assistance needed) Medication Management * Equipment None * List name and contact numbers for known caregivers / representatives who currently or will assist patient after discharge: Diego - - [phone] Triny Colon mother [phone] * Verbal permission to speak to the caregivers and representatives has been obtained from the patient. Yes * Community resources currently utilized None * Additional services required to return to the preadmission environment? No * Can the patient safely return to the preadmission environment? Yes * Has this patient been hospitalized within the prior 30 days at any hospital? Yes Last DP export: 02/09/19 9:30 a Patient Name: SOLOMON NUNEZ Page [id number] at 1611 All edits/amendments must be made on the electronic document DICTATION DATE: 02/15/191610 PRODUCT STEWARD: SABINA 02/15/191610 RPT#: [id number] DC DATE: STATUS: ADM IN [facility] [address] [place] [address] END OF REPORT
--- NOTE | 2019-02-15 20:10 | NUR ---
PT RESTING IN BED. ALERT AND ORIENTED. NO SIGNS OF DISTRESS. BREATHING EVEN AND UNLABORED. PT STATES NO PROBLEMS AT THIS TIME. IV SITE LT CHEST INFUSA PORT. DRESSING CLEAN DRY AND INTACT. NO SIGNS OF INFECTION. TELE MONTIOR ON 152. BOWEL SOUNDS ACTIVE. SKIN CLEAN DRY AND INTACT. ABD SWELLING PRESENT AND LOWER LEG SWELLING PRESENT. CATH TO THE LT LOWER ABD CLEAN DRY AND INTACT. FENTNAL PATCH RT CHEST. WILL CONTINUE PLAN OF CARE. CALL LIGHT IN REACH. BED LOWERED AND LOCKED. BED RAILS UP X2. FAMILY AT BEDSIDE.
[2019-02-16] VITALS: BP 108/57; BP 117/69
[2019-02-16 04:00] VITALS: BP 114/49
[2019-02-16 04:41] LABS: CALC OSMOLALITY 271 mosm/kg (275-300); CALCIUM 8.8 mg/dL (8.5-10.1); CHLORIDE - SERUM 100 mmol/L (98-107); CREATININE - SERUM 0.8 mg/dL (0.6-1.3); GLUCOSE 101 mg/dL (74-106); POTASSIUM - SERUM 4.4 mmol/L (3.5-5.1); SODIUM 135 mmol/L (136-145); UREA NITROGEN 17 mg/dL (7-18); VANCOMYCIN - RANDOM 13.9 ug/mL (10.0-20.0); eGFR NON AFRICAN AMERICAN 79 mL/min (90-120)
[2019-02-16 04:42] LABS: MCH 29.4 pg (26.0-34.0); MCHC 32.5 g/dL (31.0-37.0); MCV 90.6 fL (80.0-100.0); RDW 16.7 % (11.5-14.5)
[2019-02-16 04:52] LABS: HEMATOCRIT 30.8 % (36.0-48.0); WBC 4.7 10x3/uL (4.8-10.8)
[2019-02-16 04:53] LABS: PLATELET COUNT 36 10x3/uL (130-400)
--- NOTE | 2019-02-16 05:06 | NUR ---
I have reviewed this patient and I concur with the Shift Assessment completed by the Licensed Practical Nurse today this shift.
[2019-02-16 05:51] LABS: EOSINOPHILS 1 % (0-7); LYMPHOCYTES 36 % (15-50); MONOCYTES 2 % (2-11); NEUTROPHILS 59 % (40-80); PLATELET ESTIMATE DECREASED; PLATELET MORPHOLOGY GIANT PLTS PRESENT
--- NOTE | 2019-02-16 08:00 | NUR ---
MORNING ASSESSMENT COMPLETE. PT LYING IN BED AAO X4 TO PERSON, PLACE, TIME AND SITUIATION. DENIES NEEDS AT THIS TIME. CL IN REACH. SIDE RAILS UP X3 FOR PATIENT SAEFTY. BED IN LOWEST POSITION
[2019-02-16 09:12] VITALS: BP 109/83
[2019-02-16 14:08] VITALS: BP 124/62
--- NOTE | 2019-02-16 17:53 | MORECARE ---
CASE MANAGEMENT DISCHARGE SUMMARY PATIENT: SOLOMON NUNEZ UNIT: [id number] ADM DATE: 02/07/19 AGE: 54 : 63 SEX: F ROOM/BED: D.2228 AUTHOR: RYANDOC PHYSICIAN: REFERRING PHYSICIAN: ARMIN VILLARREAL MD DATE OF SERVICE: 02/16/19 Discharge Plan Patient Name: SOLOMON NUNEZ Facility: [facility]:[place] : 1965 Planned Disposition: Home Anticipated Discharge Date: Discharge Date: Expected LOS: Initial Reviewer: [email or web address] Initial Review Date: 02/09/2019 Generated: 02/16/19 6:53 pm Comments DCP- Discharge Planning Updated by [email or web address]: Iris An on 02/16/19 4:[address] I spoke with patient, her and mother concerning discharge planning. I gave her brochures on hospice agencies in a hospital setting. She does not want to be moved to [facility]. I explained that [facility] has a floor in [facility] but is not a part of the hospital. She states she wishes to remain at [facility]. States she does not want to make the decision right now for hospice. She would like to move to a larger room. I informed her that tomorrow it is possible that a larger room will be available. She states she needs more time to decide on Hospice. I asked her if I could call [facility] and they can answer her questions for her and she wants to wait. I gave them my business card to call me with any needs or questions. CM will continue to follow and assist with discharge planning/needs. DCP- Discharge Planning Updated by [email or web address]: Iris An on 02/15/19 3:[address] I met with patient earlier today concerning order for Hospice consult. Patient is the only one in the room. She states her family will be here at 4PM today and she would like to discuss it with them first. Her mother called me after I left the room and has questions concerning hospice and is asking if her daughter can stay here with hospice. I informed her that she could and that we had a contract with [facility]. Her mother states she feels better now after her questions were answered. CM will continue to follow and assist with discharge planning/needs. DCP- Discharge Planning Updated by [id number]: Iris An on 02/09/19 9:[address] Patient Name: SOLOMON NUNEZ Admission Status: ER Accout number: [id number] Admission Date: 02-07-2019 : 1965 Admission Diagnosis: Attending: ARMIN VILLARREAL Current LOS: 2 Anticipated DC Date: Planned Disposition: Home Primary Insurance: MEDICAID [place] Discharge Planning Comments: CM met with patient, she is alone in the room. States she lives with her , 2 adult daughters and 7 year old son. She states she is partially dependent on her . States her helps her with her medications if "I don't feel well". I discussed the availability of SNF, rehab, home health and DME. She states her discharge plan is to return home with her . States she does not need any DME or home health at this time. CM will continue to follow and assist with discharge planning/needs. Lock Stitch Channeler: Iris An DCPIA - Discharge Planning Initial Assessment Updated by [id number]: Iris An on 02/09/19 10:22 am * Is the patient Alert and Oriented? Yes * How many steps to enter\\exit or inside your home? 0/0 * PCP Dr. De La Torre or Russell * Pharmacy Home [facility] * Preadmission Environment Home with Family * ADLs Partial Dependent * Partial ADLs (Assistance needed) Medication Management * Equipment None * List name and contact numbers for known caregivers / representatives who currently or will assist patient after discharge: Diego - - [phone] Triny - mother - [phone] * Verbal permission to speak to the caregivers and representatives has been obtained from the patient. Yes * Community resources currently utilized None * Additional services required to return to the preadmission environment? No * Can the patient safely return to the preadmission environment? Yes * Has this patient been hospitalized within the prior 30 days at any hospital? Yes Last DP export: 02/15/19 3:11 pm Patient Name: SOLOMON NUNEZ Page [phone] at 1753 All edits/amendments must be made on the electronic document DICTATION DATE: 02/16/19 371 FLATBED TRUCK DRIVER: SABINA 02/16/191751 RPT#: [id number] DC DATE: STATUS: ADM IN [facility] [address] [place] [address] END OF REPORT
--- NOTE | 2019-02-16 21:00 | NUR ---
PT SITTING UP IN BED, NO SIGNS OF DISTRESS. ALERT AND ORIENTED. MOTHER AT BEDSIDE. LEFT CHEST PORT INFUSING D5NS @ 5, ZOFRAN @ 4.7, PROCAL @ 50, AND DILAUDID GUNITE MIXER. BILAT LOWER LEG SWELLING. ABD DISTENDED, TENDER. PAIN GENERALIZED AND IN ABD 05/26. REFUSED MIRALAX AND MILK OF MAG. SAINZ DRAINING CLEAR YELLOW URINE. HR [address] PER TELE. DENIES NEEDS AT THIST TIME. CL IN REACH, WILL CONT TO MONITOR
[2019-02-16 21:21] VITALS: BP 124/70
[2019-02-17 04:39] VITALS: BP 111/78
[2019-02-17 07:41] LABS: CALC OSMOLALITY 272 mosm/kg (275-300); CARBON DIOXIDE 26.6 mmol/L (21.0-32.0); CHLORIDE - SERUM 101 mmol/L (98-107); CREATININE - SERUM 0.7 mg/dL (0.6-1.3); GLUCOSE 101 mg/dL (74-106); SODIUM 136 mmol/L (136-145); UREA NITROGEN 16 mg/dL (7-18); eGFR NON AFRICAN AMERICAN > 90 mL/min (90-120)
--- NOTE | 2019-02-17 08:00 | NUR ---
MORNING ASSESSMENT COMPLETE. SEE ASSESSMENT FLOWSHEET FOR FURTHER DETAILS. PT LYING IN BED AAO X4 TO PERSON, PLACE, TIME, AND SITUATION. MOTHER AT BEDSIDE. DENIES NEEDS AT THIS TIME. CL IN REACH. SIDE RAILS UP X3 FOR PATIENT SAEFTY. BED IN LOWEST POSITION.
[2019-02-17 08:20] LABS: BASOPHILS 0.7 % (0-2); EOSINOPHILS 0.2 % (0-7); HEMATOCRIT 29.8 % (36.0-48.0); HEMOGLOBIN 9.5 g/dL (12-16); IMMATURE GRANULOCYTES 6.4 % (0-5); LYMPHOCYTES 28.3 % (15-50); MCH 29.3 pg (26.0-34.0); MCHC 31.9 g/dL (31.0-37.0); MONOCYTES 10.1 % (2-11); NEUTROPHILS 54.3 % (40-80); RBC 3.24 10x6/uL (4.00-5.40); WBC 4.1 10x3/uL (4.8-10.8)
[2019-02-17 08:23] LABS: PLATELET COUNT 35 10x3/uL (130-400)
[2019-02-17 09:35] VITALS: BP 99/70
[2019-02-17 13:51] VITALS: BP 129/78
[2019-02-17 18:07] VITALS: BP 116/67
[2019-02-17 20:00] VITALS: BP 97/73
--- NOTE | 2019-02-17 21:30 | NUR ---
AWAKE WITHOUT COMPLAITNS VOICED. OIL SALES AND SERVICE REP DILAUDID IN USE FOR PAIN CONTROL. PROCAL INFUSING TO LEFT CHEST PORT WITHOUT REDNESS OR EDMA NOTED. ZOFRAN AT 4.7 INFUING. NO COMPLAINTS OF NAUSEA. FAMILY AT BEDSIDE. CL IN REACH
[2019-02-18 00:30] VITALS: BP 115/74
--- NOTE | 2019-02-18 03:46 | NUR ---
I have reviewed this patient and I concur with the Shift Assessment completed by the Licensed Practical Nurse today this shift.
[2019-02-18 05:00] VITALS: BP 101/59
[2019-02-18 06:57] LABS: HEMATOCRIT 28.2 % (36.0-48.0); HEMOGLOBIN 8.9 g/dL (12-16); MCH 29.1 pg (26.0-34.0); MCHC 31.6 g/dL (31.0-37.0); MCV 92.2 fL (80.0-100.0); RBC 3.06 10x6/uL (4.00-5.40); RDW 16.9 % (11.5-14.5); WBC 3.5 10x3/uL (4.8-10.8)
[2019-02-18 07:03] LABS: CALC OSMOLALITY 276 mosm/kg (275-300); CALCIUM 9.2 mg/dL (8.5-10.1); CHLORIDE - SERUM 99 mmol/L (98-107); CREATININE - SERUM 0.6 mg/dL (0.6-1.3); GLUCOSE 102 mg/dL (74-106); POTASSIUM - SERUM 3.8 mmol/L (3.5-5.1); SODIUM 137 mmol/L (136-145); UREA NITROGEN 20 mg/dL (7-18); eGFR NON AFRICAN AMERICAN > 90 mL/min (90-120)
--- NOTE | 2019-02-18 07:38 | NUR ---
PATIENT STATES IN PAIN 05/26. BOLUS DOSE 1.6 OF SUPERVISOR PARK WORKERS GIVEN PER REQUEST. WILL CONTINUE TO MONITOR.
[2019-02-18 07:59] LABS: PLATELET COUNT 33 10x3/uL (130-400)
[2019-02-18 08:15] LABS: LYMPHOCYTES 24 % (15-50); MONOCYTES 4 % (2-11); NEUTROPHILS 49 % (40-80); PLATELET ESTIMATE DECREASED
--- NOTE | 2019-02-18 09:18 | NUR ---
ALERT AND ORIENTED X3. LUNGS CLEAR BILATERALLY. HEART SOUNDS S1 AND S2 HEARD IN ALL BOWERS. TACHYCARDIA. UNABLE TO ASSESS PEDAL PULSES D/T +2 NON PITTING EDEMA. ABDOMEN DISTENDED. DRESSING TO LEFT ABD WITHOUT DRAINAGE OR S/SX INFECTION. SAINZ IN PLACE AND DRAINING CLEAR YELLOW URINE. PORT TO LEFT CHEST INFUSING. FACE FLUSHED. SKIN INTACT WITHOUT REDNESS. BOWEL SOUNDS ACTIVE X4 BUT STATES HAS NOT HAD BM SINCE CATHETER INSERTION. BED LOW. PERSONAL ITEMS IN REACH. BREAKFAST AT BEDSIDE. STATES PAIN DECREASED TO 4/10 AFTER BOLUS OF DILAUDID FROM SOFTWARE SALES EXECUTIVE. DENIES FURTHER NEEDS. WILL CONTINUE TO MONITOR.
[2019-02-18 09:19] VITALS: BP 142/70
--- NOTE | 2019-02-18 09:40 | NUR ---
PATIENT REQUESTED SIGN TO BE PLACED ON DOOR TO NOT ENTER ROOM WITHOUT TALKING TO NURSE. WANTS QUIET TO TRY TO SLEEP. SIGN PLACED ON DOOR.
--- NOTE | 2019-02-18 12:17 | NUR ---
EDUCATION PROVIDED ON NEED TO CHANGE DRESSING TO LEFT PORT. PATIENT VERBALIZED UNDERSTANDING AND STATED "I'LL LET YOU KNOW LATER WHEN IT'S A GOOD TIME". WILL CONTINUE TO MONITOR.
--- NOTE | 2019-02-18 13:21 | NUR ---
WENT TO SEE IF ABLE TO CHANGE PORT DRESSING. PATIENT SLEEPING. DAUGHTER AT BEDSIDE REQUESTS LET PATIENT SLEEP. WILL TRY AGAIN LATER. WILL CONTINUE TO MONITOR.
--- NOTE | 2019-02-18 14:12 | NUR ---
ALL IV LINES CHANGED AND DATED.
--- NOTE | 2019-02-18 14:37 | NUR ---
DRESSING CHANGED TO LEFT PORT USING STERILE PROCEDURE.
--- NOTE | 2019-02-18 16:03 | NUR ---
PATIENT REFUSED MIRALAX AND MILK OF MAG. OTHER SCHEDULED MEDICATIONS GIVEN. SAINZ CARE PROVIDED. DENIES FURTHER NEEDS. DAUGHTER AT BEDSIDE. WILL CONTINUE TO MONITOR.
--- NOTE | 2019-02-18 16:10 | NUR ---
PATIENT STATES HAVING TROUBLE BREATHING. O2 SATURATION 98% ON 2L O2. DOCTOR CAME IN TO SEE PT AND ORDERED STAT BREATHING TX, CHEST XRAY, AND ORDER TO DRAIN PLEUREX.
--- NOTE | 2019-02-18 16:42 | NUR ---
200 CC FLUID DRAINED FROM PLEUREX. PT STATES FEELS LIKE SHE CAN BREATHE BETTER. DOCTOR NOTIFIED. WILL CONTINUE TO MONITOR.
--- NOTE | 2019-02-18 16:57 | NUR ---
PATIENT REFUSED STAT BREATHING TX. EDUCATION PROVIDED. CONTINUES TO REFUSE. STATES "I WANT TO RESEARCH IT"
--- NOTE | 2019-02-18 17:27 | NUR ---
PATIENT STATES BREATHING BETTER. STATES WOULD LIKE TO BE LEFT ALONE TO REST. DAUGHTER AND MOTHER AT BEDSIDE.
[2019-02-18 18:11] VITALS: BP 115/74
--- NOTE | 2019-02-18 20:10 | NUR ---
LYING QUIETLY. NO DISTRESS NOTED. NO COMPLAINTS VOICED. O2@4L PER NC ON. IV INFUSING TO LEFT CHEST PORT WITHOUT REDNESS OR EDEMA NOTED. PLUREX DRAIN TO LEFT CHEST WITH DRESSING INTACT.MACHINE SHORTHAND TEACHER DILAUDID IN USE FOR PAIN CONTROL.FAMILY AT BEDSIDE. CL IN REACH
[2019-02-18 20:23] VITALS: BP 105/77
--- NOTE | 2019-02-19 03:32 | NUR ---
I have reviewed this patient and I concur with the Shift Assessment completed by the Licensed Practical Nurse today this shift.
[2019-02-19 04:07] LABS: BASOPHILS 0.3 % (0-2); HEMATOCRIT 26.6 % (36.0-48.0); HEMOGLOBIN 8.4 g/dL (12-16); IMMATURE GRANULOCYTES 5.7 % (0-5); MCH 29.1 pg (26.0-34.0); MCHC 31.6 g/dL (31.0-37.0); MONOCYTES 9.6 % (2-11); NEUTROPHILS 55.4 % (40-80); RBC 2.89 10x6/uL (4.00-5.40); RDW 16.5 % (11.5-14.5); WBC 3.1 10x3/uL (4.8-10.8)
[2019-02-19 04:09] LABS: PLATELET COUNT 27 10x3/uL (130-400)
[2019-02-19 04:24] LABS: ALBUMIN 2.9 g/dL (3.4-5.0); ALKALINE PHOSPHATASE 69 U/L (46-116); ALT (SGPT) 10 U/L (10-68); CALC OSMOLALITY 274 mosm/kg (275-300); CALCIUM 9.5 mg/dL (8.5-10.1); CARBON DIOXIDE 32.5 mmol/L (21.0-32.0); CHLORIDE - SERUM 97 mmol/L (98-107); CREATININE - SERUM 0.8 mg/dL (0.6-1.3); GLUCOSE 108 mg/dL (74-106); POTASSIUM - SERUM 3.3 mmol/L (3.5-5.1); PROTEIN - SERUM 6.6 g/dL (6.4-8.2); SODIUM 135 mmol/L (136-145); UREA NITROGEN 23 mg/dL (7-18); eGFR NON AFRICAN AMERICAN 79 mL/min (90-120)
[2019-02-19 04:58] VITALS: BP 114/79
[2019-02-19 08:52] VITALS: BP 115/75
[2019-02-19 13:21] VITALS: BP 112/76
[2019-02-19 16:40] VITALS: BP 108/70
--- NOTE | 2019-02-19 18:49 | NUR ---
FIRST UNIT OF PRBS STARTED WITH NO COMPLICATIONS
--- NOTE | 2019-02-19 19:15 | NUR ---
RECEIVED CARE FROM DAY NURSE. LYING IN BED WITH FAMILY AT SIDE. REPORTS NO NEEDS AT THIS TIME. CALL LIGHT AT SIDE. BLOOD INFUSING AT THIS TIME. SAINZ TO GRAVITY.
--- NOTE | 2019-02-19 22:24 | NUR ---
RECEIVED ORDER FOR DRAINING THE PLEURX CATH PRN AT BEDSIDE. DONE AT THIS TIME USING FIELD CARE ADVOCATE WITH REMOVAL OF 250ML.
[2019-02-20 00:54] VITALS: BP 100/73
--- NOTE | 2019-02-20 01:45 | NUR ---
PT REPORTS DISCOMFORT AND FEELING LIKE HER ABDOMEN IS GETTING TIGHT AGAIN. DRAINED AT THIS TIME WITH REMOVAL OF 50ML.
--- NOTE | 2019-02-20 05:04 | NUR ---
HAVE HAD MULTIPLE CONVERSATIONS WITH PATIENT AND FAMILY. PT REPORTS SHE WAS TOLD TO ONLY USE HER PROFESSOR COMPUTER SCIENCE ONCE PER HOUR DUE TO DIFFICULTY BREATHING. PT REPORTS EXTREME PAIN. TOLD PATIENT SHE NEEDS TO USE HER PROFESSOR COMPUTER SCIENCE BUTTON OFTEN SHE NEEDS IT, THAT IF HER RESPIRATORY STATUS BECOMES AN ISSUE WE CAN TREAT IT. FAMILY REPORTS THEY WILL TRY TO USE IT EVERY 30 MINUTES. AGAIN STRESSED THE IMPORTANCE OF PAIN CONTROL.
[2019-02-20 05:26] VITALS: BP 121/75
--- NOTE | 2019-02-20 06:04 | NUR ---
I have reviewed this patient and I concur with the Shift Assessment completed by the Licensed Practical Nurse today this shift.
--- NOTE | 2019-02-20 07:10 | NUR ---
PATIENT RECIEVED RESTING IN BED WITH FAMILY AT SIDE. PAIN TOLERABLE WITH CONTROLS OPERATOR MOLDED GOODS DILAUDID. RESPIRATIONS NONLABORED. CL IN REACH
[2019-02-20 09:01] LABS: HEMATOCRIT 30.4 % (36.0-48.0); HEMOGLOBIN 9.9 g/dL (12-16); MCHC 32.6 g/dL (31.0-37.0); RBC 3.41 10x6/uL (4.00-5.40); RDW 16.8 % (11.5-14.5); WBC 3.1 10x3/uL (4.8-10.8)
[2019-02-20 09:04] VITALS: BP 112/74
[2019-02-20 09:10] LABS: ALBUMIN 3.1 g/dL (3.4-5.0); ALKALINE PHOSPHATASE 65 U/L (46-116); ALT (SGPT) 10 U/L (10-68); BILIRUBIN - TOTAL 3.14 mg/dL (0.2-1.3); CALC OSMOLALITY 281 mosm/kg (275-300); CARBON DIOXIDE 34.2 mmol/L (21.0-32.0); CHLORIDE - SERUM 96 mmol/L (98-107); CREATININE - SERUM 0.8 mg/dL (0.6-1.3); GLUCOSE 102 mg/dL (74-106); POTASSIUM - SERUM 3.4 mmol/L (3.5-5.1); PROTEIN - SERUM 6.1 g/dL (6.4-8.2); SODIUM 140 mmol/L (136-145); UREA NITROGEN 22 mg/dL (7-18); eGFR NON AFRICAN AMERICAN 79 mL/min (90-120)
[2019-02-20 09:27] LABS: MCV 89.1 fL (80.0-100.0)
[2019-02-20 09:28] LABS: PLATELET COUNT 23 10x3/uL (130-400)
[2019-02-20 12:04] LABS: LYMPHOCYTES 45 % (15-50); NEUTROPHILS 53 % (40-80); PLATELET ESTIMATE DECREASED
[2019-02-20 12:15] VITALS: BP 118/73
[2019-02-20 17:51] VITALS: BP 116/75
--- NOTE | 2019-02-20 18:00 | NUR ---
PATIENT REQUEST TO HAVE TELEMETRY REMOVED DUE TO IRRITATING SKIN
--- NOTE | 2019-02-20 18:34 | NUR ---
PATIENT C/O ABDOMINAL PRESSURE AND INCREADSED DIFFICULTY BREATHING, 02 SAT 98%, 100ML DRAINED FROM PLEURX DRAIN USING STERILE TECHNIQUE DRESSING REAPPLIED
--- NOTE | 2019-02-20 19:15 | NUR ---
RECEIVED CARE FROM DAY NURSE. LYING IN BED WITH MOTHER AT SIDE. REPORTS NO NEEDS AT THIS TIME. CALL LIGHT AT SIDE. SAINZ TO GRAVITY. IV INFUSING PER ORDER TO LEFT IP.
--- NOTE | 2019-02-20 19:15 | NUR ---
RECEIVED CARE FROM DAY NURSE. LYING IN BED WITH FAMILY AT SIDE. NO NEEDS VOICED AT THIS TIME. CALL LIGHT AT SIDE. SAINZ TO GRAVITY. IV INFUSING PER ORDER TO LEFT IP.
[2019-02-21] VITALS: BP 108/65
--- NOTE | 2019-02-21 02:00 | NUR ---
PT C/O HEART SKIPPING A BEAT. CALLED AND GOT TELEMETRY BOX FROM MONITORS.
[2019-02-21 03:00] VITALS: BP 116/79
--- NOTE | 2019-02-21 03:47 | NUR ---
I have reviewed this patient and I concur with the Shift Assessment completed by the Licensed Practical Nurse today this shift.
--- NOTE | 2019-02-21 05:50 | NUR ---
C/O OF RED ITCHY PAINFUL RASH TO RIGHT FLANK AND LOWER RIGHT ABDOMEN. REPORTS GOT WORSE WHEN LOTION APPLIED. INSTRUCTED FAMILY AND PT TO SHOW IT TO ROUNDING DOCTOR.
[2019-02-21 06:41] LABS: BASOPHILS 0.4 % (0-2); EOSINOPHILS 0 % (0-7); HEMATOCRIT 29.2 % (36.0-48.0); HEMOGLOBIN 9.4 g/dL (12-16); IMMATURE GRANULOCYTES 4.2 % (0-5); LYMPHOCYTES 39.4 % (15-50); MCH 28.9 pg (26.0-34.0); MCHC 32.2 g/dL (31.0-37.0); MCV 89.8 fL (80.0-100.0); MONOCYTES 7.6 % (2-11); NEUTROPHILS 48.4 % (40-80); RBC 3.25 10x6/uL (4.00-5.40); RDW 16.4 % (11.5-14.5); WBC 2.4 10x3/uL (4.8-10.8)
[2019-02-21 06:49] LABS: PLATELET COUNT 24 10x3/uL (130-400)
[2019-02-21 06:50] LABS: ALBUMIN 3.3 g/dL (3.4-5.0); ANION GAP 9.7 mmol/L (8-16); BILIRUBIN - TOTAL 2.04 mg/dL (0.2-1.3); CALCIUM 9.2 mg/dL (8.5-10.1); CARBON DIOXIDE 35.1 mmol/L (21.0-32.0); CREATININE - SERUM 0.9 mg/dL (0.6-1.3); POTASSIUM - SERUM 3.8 mmol/L (3.5-5.1); PROTEIN - SERUM 6.5 g/dL (6.4-8.2)
--- NOTE | 2019-02-21 07:10 | NUR ---
PATIENT RECIEVED RESTING IN BED WITH DAUGHTERS AT SIDE, NO NEEDS VOICED AT THIS TIME, CL IN REACH
--- NOTE | 2019-02-21 09:10 | NUR ---
ENCOURAGED PATIENT TO TRY MERILAX DUE TO NO BM FOR OVER ONE WEEK. PATIENT VOICED UNDERSTANDING AND STATED THAT SHE WILL TRY TO TAKE ONE DOSE TODAY.
[2019-02-21 09:54] VITALS: BP 124/75
[2019-02-21 13:43] VITALS: BP 116/77
--- NOTE | 2019-02-21 14:15 | NUR ---
PLEUAX DRAINED WITH 75ML DRAINED, DRESSING REAPPLIED USING STERILE TECHNIQUE
[2019-02-21 17:49] VITALS: BP 103/74
--- NOTE | 2019-02-21 19:01 | NUR ---
PLEURX DRAIN DRAINED WITH 50ML REMOVED, DRESSING REAPPLIED USING BUILDING RENTAL MANAGER
[2019-02-21 20:23] VITALS: BP 120/84
[2019-02-22 05:27] VITALS: BP 126/77
[2019-02-22 07:10] LABS: ALBUMIN 3.2 g/dL (3.4-5.0); ANION GAP 12.3 mmol/L (8-16); BILIRUBIN - TOTAL 2.22 mg/dL (0.2-1.3); CALCIUM 9.5 mg/dL (8.5-10.1); CARBON DIOXIDE 36.6 mmol/L (21.0-32.0); CREATININE - SERUM 0.9 mg/dL (0.6-1.3); POTASSIUM - SERUM 3.9 mmol/L (3.5-5.1); PROTEIN - SERUM 6.3 g/dL (6.4-8.2)
[2019-02-22 07:25] LABS: HEMATOCRIT 27.8 % (36.0-48.0); MCH 28.9 pg (26.0-34.0); MCHC 32.4 g/dL (31.0-37.0); MCV 89.4 fL (80.0-100.0); RBC 3.11 10x6/uL (4.00-5.40); RDW 16.3 % (11.5-14.5); WBC 2.2 10x3/uL (4.8-10.8)
[2019-02-22 07:57] LABS: PLATELET COUNT 23 10x3/uL (130-400)
--- NOTE | 2019-02-22 08:00 | NUR ---
MORNING ASSESSMENT COMPLETE. SEE ASSESSMENT FLOWSHEET FOR FURTHER DETAILS. PT LYING IN BED AAO X4 TO PERSON, PLACE, TIME, AND SITUATION. MOTHER AND DAUGHTER AT BEDSIDE. PT C/O NAUSEA- WILL GIVE PHENERGAN PER ORDER. DENIES NEEDS AT THIS TIME. CL IN REACH. SIDE RAILS UP X3 FOR PT SAEFTY. BED IN LOWEST POSITION.
[2019-02-22 08:20] LABS: LYMPHOCYTES 33 % (15-50); MONOCYTES 5 % (2-11); NEUTROPHILS 50 % (40-80); PLATELET ESTIMATE DECREASED
[2019-02-22 08:21] LABS: PLATELET MORPHOLOGY GIANT PLTS PRESENT
[2019-02-22 10:07] VITALS: BP 108/72
[2019-02-22 14:37] VITALS: BP 113/79
--- NOTE | 2019-02-22 15:10 | NUR ---
NUTRITION F/U PT CONTINUES FULL LIQUID DIET. NURSING REPORTS VERY LITTLE PO INTAKE. WILL CONTINUE TO HONOR DIET PREFERENCES. RD FOLLOWING
[2019-02-22 18:12] VITALS: BP 109/77
--- NOTE | 2019-02-22 20:00 | NUR ---
PT LYING IN BED, NO SIGNS OF DISTRESS. ALERT AND ORIENTED. MOTHER AT BEDSIDE. SAINZ DRAINING FRANDY URINE, STAT LOCK CHANGED. PT REQUESTED PRN BREATHING TRX, PAGEG RESP WHO ADMINISTERED TRX. PT REFUSED TELE MONITOR, RETURNED TO MONITOR STATION. REQUESTED AND GIVEN TUMS WITH QHS MEDS. ABD DISTENDED, TENDER. USING DILAUDID MOLDED RUBBER GOODS CUTTER FOR PAIN CONTROL. STATES PAIN 4/10. DENIES NEEDS AT THIS TIME. CL IN REACH, WILL CONT TO MONITOR
[2019-02-22 21:57] VITALS: BP 118/78
[2019-02-23 01:45] VITALS: BP 114/69
--- NOTE | 2019-02-23 04:20 | NUR ---
PT SOB AND IN PAIN, PAGED RESP AND PT RECIEVED PRN BREATHING TRX. PT STATES PAIN IS FROM ABD NEAR BLADDER, FEELS LIKE SHE HAS TO USE BATHROOM. ABD IS DISTENDED AND TENDER. THIS NURSE CHECKED CATHETER PLACEMENT AND FOR KINKS. NO ISSUES FOUND WITH SAINZ. SAINZ HAS DRAINED 1250 SINCE MIDNIGHT AND FREELY FLOWING THIS TIME. PT STATES SHE WOULD FEEL BETTER W/ BLADDER SCAN. SCAN SHOWED 165ML. PT STATES THAT WHEN SHE GETS SOB THAT IT SOMETIMES MEANS HER PLEURX NEEDS TO BE DRAINED. THIS NURSE AND SECOND NURSE ATTEMPTED TO DRAIN IT BUT PT CHANGED HER MIND STATING SHE WANTED TO HOLD OFF ON DRAINING IT RIGHT NOW. TOLD PT MULTIPLE TIMES WE COULD DRAIN IT AND SEE WHAT WE GET BUT PT REFUSED AND STATES SHE WILL LET US KNOW WHEN SHE WANTS TO DRAIN IT. PT IS ALSO COUGHING UP WHITE FROTHY SPUTUM AND HAS EXP WHEEZING ON RIGHT SIDE. DENIES NEEDS AT THIS TIME. CL IN REACH, WILL CONT TO MONITOR
[2019-02-23 05:19] VITALS: BP 112/75
[2019-02-23 06:00] LABS: ALBUMIN 3.5 g/dL (3.4-5.0); ALKALINE PHOSPHATASE 46 U/L (46-116); CALC OSMOLALITY 275 mosm/kg (275-300); CALCIUM 9.4 mg/dL (8.5-10.1); CARBON DIOXIDE 34.6 mmol/L (21.0-32.0); CHLORIDE - SERUM 95 mmol/L (98-107); CREATININE - SERUM 0.8 mg/dL (0.6-1.3); GLUCOSE 106 mg/dL (74-106); POTASSIUM - SERUM 3.7 mmol/L (3.5-5.1); PROTEIN - SERUM 6.7 g/dL (6.4-8.2); SODIUM 136 mmol/L (136-145); UREA NITROGEN 23 mg/dL (7-18); VANCOMYCIN - TROUGH 4.6 ug/mL (10.0-20.0); eGFR NON AFRICAN AMERICAN 79 mL/min (90-120)
[2019-02-23 06:06] LABS: HEMATOCRIT 27.8 % (36.0-48.0); HEMOGLOBIN 8.9 g/dL (12-16); MCH 29.1 pg (26.0-34.0); MCV 90.8 fL (80.0-100.0); RBC 3.06 10x6/uL (4.00-5.40); RDW 16.3 % (11.5-14.5); WBC 2.7 10x3/uL (4.8-10.8)
[2019-02-23 06:12] LABS: PLATELET COUNT 23 10x3/uL (130-400)
[2019-02-23 06:23] LABS: ALT (SGPT) 7 U/L (10-68)
[2019-02-23 08:17] VITALS: BP 114/77
--- NOTE | 2019-02-23 09:16 | NUR ---
PATIENT ALERT AND ORIENTED X 3. BOTH DAUGHTERS AT BEDSIDE. EXTREMELY FATIGUED BUT EASY TO AROUSE. LUNGS WITH RIGHT LOWER LOBE WHEEZING. DIMINISHED IN BILATERAL LOWER LOBES. HEART SOUNDS S1 AND S2 HEARD IN ALL BOWERS. BOWEL SOUNDS ACTIVE BUT SLUGGISH X 4. SAINZ PATENT AND DRAINING YELLOW URINE. LEFT PLEUREX DRAIN WITH DRESSING INTACT. LEFT PORT PATENT. MEDICATIONS GIVEN WITHOUT DIFFICULTY. SKIN INTACT WITHOUT REDNESS. PERSONAL ITEMS IN REACH. BED LOW.
--- NOTE | 2019-02-23 10:06 | NUR ---
ADDITION TO PREVIOUS NOTE. RASH NOTED TO RIGHT FLANK AREA. ABD DISTENDED. FENTANYL 50MCG PATCH INTACT. STATES DOES NOT WANT TO USE 75MCG PATCH.
--- NOTE | 2019-02-23 10:27 | NUR ---
PATIENT SLEEPING. DAUGHTERS AT BEDSIDE
[2019-02-23 10:38] LABS: LYMPHOCYTES 29 % (15-50); MONOCYTES 7 % (2-11); NEUTROPHILS 53 % (40-80); PLATELET ESTIMATE DECREASED
--- NOTE | 2019-02-23 10:46 | NUR ---
PATIENT STATES FEELS LIKE "HAS TO PEE". SAINZ PATENT AND DRAINING. SAINZ ADJUSTED SLIGHTLY. DRAINING. STATES FEELS BETTER. WILL CONTINUE TO MONITOR.
[2019-02-23 13:27] VITALS: BP 118/67
--- NOTE | 2019-02-23 13:48 | NUR ---
PATIENT STATES ATTEMPTED A COUPLE OF BITES OF LUNCH BUT NO APPETITE. GIVEN COOL RAGS FOR FOREHEAD. WILL CONTINUE TO MONITOR.
--- NOTE | 2019-02-23 14:36 | NUR ---
PATIENT ASSISTED TO SIT ON EDGE OF BED PER REQUEST. SAINZ BAG EMPTIED. ASSISTED BACK TO LAY DOWN. MEDICATIONS GIVEN. FAN TURNED ON PER REQUEST. DENIES FURTHER NEEDS AT THIS TIME. WILL CONTINUE TO MONITOR.
--- NOTE | 2019-02-23 16:17 | NUR ---
PATIENT LYING IN BED. MEDICATIONS GIVEN. DENIES FURTHER NEEDS. DAUGHTER AT BEDSIDE. WILL CONTINUE TO MONITOR.
[2019-02-23 17:49] VITALS: BP 123/72
--- NOTE | 2019-02-23 17:54 | NUR ---
REQUESTED PRN BREATHING TREATMENT. RESPIRATORY NOTIFIED.
--- NOTE | 2019-02-23 18:37 | NUR ---
DRAINED PLEUREX PER REQUEST. 50ML DRAINED
--- NOTE | 2019-02-23 19:45 | NUR ---
PT LYING IN BED W/ MOTHER AT BEDSIDE. NO SIGNS OF DISTRESS. ALERT AND ORIENTED. STATES PAIN /10. SAINZ DRAINING DARK YELLOW URINE. STATES NO NAUSEA AT THIS TIME. ABD DISTENDED. O2 3.5L/NC. DENIES NEEDS. CL IN REACH, WILL CONT TO MONITOR
[2019-02-23 21:18] VITALS: BP 107/72
--- NOTE | 2019-02-23 22:00 | NUR ---
PT PAIN 8/10 IN ABD AND BACK. THIS NURSE HAS OFFERED AQUACULTURE DIRECTOR BOLUS SEVERAL TIMES. PT REFUSES, MOTHER STEPPED OUT OF ROOM TO TELL ME THAT PT THINKS SHE IS GOING TO GET ADDICTED IF SHE USES TOO MUCH. EDUCATED PT ON PAIN MANAGEMENT, PT CONTINUES TO REFUSE. HOWEVER PT LET ME CHANGE 50MCG FENTANYL PATCH ON RIGHT CHEST FROM 02/20/19 TO 100MCG PATCH TO LEFT CHEST. ENCOURAGED TO CALL WITH NEEDS. CL IN REACH, WILL CONT TO MONITOR
--- NOTE | 2019-02-24 04:00 | NUR ---
PT RESTING QUIETLY IN BED, NO SIGNS OF DISTRESS. DAUGHTERS AT BEDSIDE. DENIES NEEDS. CL IN REACH, WILL CONT TO MONITOR
[2019-02-24 05:59] VITALS: BP 107/67
[2019-02-24 06:24] LABS: CALC OSMOLALITY 281 mosm/kg (275-300); CALCIUM 9.1 mg/dL (8.5-10.1); CARBON DIOXIDE 34.6 mmol/L (21.0-32.0); CHLORIDE - SERUM 97 mmol/L (98-107); CREATININE - SERUM 0.7 mg/dL (0.6-1.3); GLUCOSE 113 mg/dL (74-106); POTASSIUM - SERUM 3.8 mmol/L (3.5-5.1); SODIUM 139 mmol/L (136-145); UREA NITROGEN 22 mg/dL (7-18); VANCOMYCIN - TROUGH 10.1 ug/mL (10.0-20.0); eGFR NON AFRICAN AMERICAN > 90 mL/min (90-120)
[2019-02-24 07:05] LABS: BASOPHILS 0.7 % (0-2); EOSINOPHILS 0.4 % (0-7); HEMATOCRIT 26.9 % (36.0-48.0); HEMOGLOBIN 8.6 g/dL (12-16); LYMPHOCYTES 29.2 % (15-50); MCH 29.1 pg (26.0-34.0); MCV 90.9 fL (80.0-100.0); MONOCYTES 7.6 % (2-11); NEUTROPHILS 58.1 % (40-80); RBC 2.96 10x6/uL (4.00-5.40); RDW 16.4 % (11.5-14.5); WBC 2.8 10x3/uL (4.8-10.8)
[2019-02-24 07:07] LABS: PLATELET COUNT 23 10x3/uL (130-400)
--- NOTE | 2019-02-24 07:15 | NUR ---
PATIENT RESTING WITH NO NEEDS VOICED AT THIS TIME, MOTHER AT BEDSIDE. ADMITTED WITH COMPLICATIONS SECONDARY TO OVARIAN CANCER. PAIN CONTROLED WITH DILAUDID CHIEF INFORMATION OFFICER.
[2019-02-24 09:41] VITALS: BP 111/65
[2019-02-24 15:09] VITALS: BP 104/68
[2019-02-24 17:54] VITALS: BP 108/69
--- NOTE | 2019-02-24 19:15 | NUR ---
PT ON LIGHT CO PAIN DILAUDID IS OUT ON DANCE HALL HOST/HOSTESS. REPLACED AT THIS TIME LCTA SKIN WARM AND DRY. BED LOW AND CALL LIGHT IN REACH
[2019-02-24 22:22] VITALS: BP 120/75
[2019-02-25] VITALS (15 sets, daily range): BP systolic 98–118; BP diastolic 70–79
--- NOTE | 2019-02-25 04:34 | NUR ---
I have reviewed this patient and I concur with the Shift Assessment completed by the Licensed Practical Nurse today this shift.
[2019-02-25 05:06] LABS: HEMATOCRIT 24.5 % (36.0-48.0); HEMOGLOBIN 7.8 g/dL (12-16); MCH 28.8 pg (26.0-34.0); MCHC 31.8 g/dL (31.0-37.0); MCV 90.4 fL (80.0-100.0); RBC 2.71 10x6/uL (4.00-5.40); RDW 16.4 % (11.5-14.5); WBC 2.5 10x3/uL (4.8-10.8)
[2019-02-25 05:08] LABS: PLATELET COUNT 22 10x3/uL (130-400)
[2019-02-25 05:24] LABS: CALC OSMOLALITY 278 mosm/kg (275-300); CALCIUM 9.3 mg/dL (8.5-10.1); CARBON DIOXIDE 36.5 mmol/L (21.0-32.0); CHLORIDE - SERUM 94 mmol/L (98-107); CREATININE - SERUM 0.8 mg/dL (0.6-1.3); GLUCOSE 116 mg/dL (74-106); POTASSIUM - SERUM 3.8 mmol/L (3.5-5.1); SODIUM 137 mmol/L (136-145); UREA NITROGEN 24 mg/dL (7-18); eGFR NON AFRICAN AMERICAN 79 mL/min (90-120)
[2019-02-25 05:57] LABS: LYMPHOCYTES 30 % (15-50); MONOCYTES 5 % (2-11); NEUTROPHILS 52 % (40-80)
[2019-02-25 05:58] LABS: PLATELET ESTIMATE DECREASED
--- NOTE | 2019-02-25 07:30 | NUR ---
PT RESTING IN BED WITH FAMILY AT BEDSIDE. NO ACUTE DISTRESS AT THIS TIME. O2 @ 3.5L NC IN PLACE. LEFT CHEST PORT ACCESSED AND INFUSING PROCAL @ 50ML/HR, ZOFRAN 4.7ML/HR, D5NS @ 10ML/HR AND DILAUDID SALES ADMINISTRATOR ALL INFUSING VIA PUMP. SITE WITHOUT REDNESS OR EDEMA. FENTANYL PATCH IN PLACE TO LEFT SHOULDER. REDDENED AREA NOTED TO RIGHT FLANK. REPORTS PAIN 6/10 AT THIS TIME. UTILIZES DILAUDID SALES ADMINISTRATOR AND REPORTS PAIN RELIEF WITH SALES ADMINISTRATOR. F/C PATENT AND DRAINING. DENIES FURTHER NEEDS. CL WITHIN REACH. ENCOURAGED TO CALL WITH NEEDS. CONTINUE POC
--- NOTE | 2019-02-25 13:46 | NUR ---
NUTRITION F/U CHART REVIEWED. NOT VISITING WITH PT 2/2 SIGN ON DOOR REQUESTING LIMITED VISITORS. FULL LIQUID DIET PER PT REQUEST. RD FOLLOWING
--- NOTE | 2019-02-25 19:00 | NUR ---
REPORT RECEIVED AND CARE OF PT ASSUMED. 1ST UNIT OF PRBC'S JUST COMPLETE BY DAY SHIFT RN...PT NOW BACK ON IV FLUIDS AND CARD DEALER TO CONTROL PAIN....WANTS TO WAIT A WHILE FOR 2ND UNIT OF BLOOD TILL PAIN BETTER CONTROLLED. LEFT SC PATENT WITH PROCAL INFUSING AT 50 ML / HR; D5NS INFUSING AT 10ML/HR; ZOFRAN INFUSING AT 4.7 ML/HR, AND DILAUDID CARD DEALER IN USE FOR PAIN CONTROL SET AT 0.6/10/NO LOCKOUT. SAINZ CATHETER DRAINING TO GRAVITY WITH FRANDY URINE IN COLLECTION BAG. WILL MONITOR FOR NEEDS. IS AT BEDSIDE.
--- NOTE | 2019-02-25 20:35 | NUR ---
HS MEDICATIONS GIVEN. PT STILL HAVING LOTS OF PAIN...ENCOURAGED USE OF BENCH GRINDER. STARTED VANC IVPB THAT WAS LATE DUE TO BLOOD TRANSFUSION...WILL START 2ND UNIT AFTER THIS IS COMPLETE.
--- NOTE | 2019-02-25 22:55 | NUR ---
STARTED 2ND UNIT OF PRBC'S. VITALS STABLE.
--- NOTE | 2019-02-25 23:26 | NUR ---
VITALS REMAIN STABLE. PT RESTING WITH EYES CLOSED.
[2019-02-26] VITALS (9 sets, daily range): BP systolic 98–125; BP diastolic 72–79
--- NOTE | 2019-02-26 00:20 | NUR ---
CHANGED ALL IV TUBINGS PER CHANGE PROTOCOL. ALL LABLED WITH NEXT CHANGE DATE.
--- NOTE | 2019-02-26 00:20 | NUR ---
PRBC'S COMPLETE. VITALS STABLE.
--- NOTE | 2019-02-26 00:50 | NUR ---
PT ANXIOUS AND C/O SEVERE PAIN. RE-CONNECTED IV FLUIDS AND PARTS PRODUCT ANALYST. GAVE BOLUS DOSE OF DILAUDID 1 MG VIA PUMP. CALLED RT TO GIVE PRN UPDRAFT TX PER PT REQUEST.
[2019-02-26 04:42] LABS: BASOPHILS 0.4 % (0-2); EOSINOPHILS 0.7 % (0-7); HEMATOCRIT 28.9 % (36.0-48.0); HEMOGLOBIN 9.6 g/dL (12-16); IMMATURE GRANULOCYTES 2.2 % (0-5); LYMPHOCYTES 39.6 % (15-50); MCH 29.4 pg (26.0-34.0); MCHC 33.2 g/dL (31.0-37.0); MCV 88.7 fL (80.0-100.0); MONOCYTES 6.6 % (2-11); NEUTROPHILS 50.5 % (40-80); RBC 3.26 10x6/uL (4.00-5.40); RDW 16.8 % (11.5-14.5); WBC 2.7 10x3/uL (4.8-10.8)
[2019-02-26 04:43] LABS: PLATELET COUNT 21 10x3/uL (130-400)
[2019-02-26 04:48] LABS: CALC OSMOLALITY 282 mosm/kg (275-300); CALCIUM 9.2 mg/dL (8.5-10.1); CARBON DIOXIDE 33.9 mmol/L (21.0-32.0); CHLORIDE - SERUM 98 mmol/L (98-107); CREATININE - SERUM 0.7 mg/dL (0.6-1.3); GLUCOSE 105 mg/dL (74-106); POTASSIUM - SERUM 3.8 mmol/L (3.5-5.1); SODIUM 140 mmol/L (136-145); UREA NITROGEN 23 mg/dL (7-18); eGFR NON AFRICAN AMERICAN > 90 mL/min (90-120)
--- NOTE | 2019-02-26 07:50 | NUR ---
PT SITTING UP ON SIDE OF BED. SPOUSE AT BEDSIDE. REPORTS PAIN 5/10 AT THIS TIME, MORE GENERALIZED THIS AM. DILAUDID FISHER MUSSEL IN PLACE AND BEING UTILIZED. O2 @ 4L NC IN PLACE. LEFT CHEST PORT ACCESSED WITH PROCAL @ 50ML/HR, ZOFRAN 4.7 ML/HR, D5NS @ 10ML/HR INFUSING VIA PUMP. SITE WITHOUT REDNESS OR EDEMA. DENIES FURTHER NEEDS AT THIS TIME. CL WITHIN REACH. ENCOURAGED TO CALL WITH NEEDS. CONTINUE POC
--- NOTE | 2019-02-26 19:00 | NUR ---
REPORT RECEIVED AND CARE OF PT ASSUMED. PT LYING IN LOW BAUMAN'S POSITION VISITING WITH FAMILY MEMBERS. LEFT PORT PATENT WITH PROCAL INFUSING AT 50 ML / HR.; ZOFRAN AT 4.7 ML/HR, DENS AT 10 ML/HR, AND DILAUDID PIPE FITTER WELDING FOR PAIN CONTROL. SAINZ CATHETER DRAINING TO GRAVITY WITH FRANDY URINE IN COLLECTION BAG. WILL MONITOR FOR NEEDS.
--- NOTE | 2019-02-26 20:52 | NUR ---
HS MEDICATIONS GIVEN. WILL CONTINUE TO MONITOR FOR NEEDS.
--- NOTE | 2019-02-26 21:16 | NUR ---
RECEIVED VERBAL ORDER FROM DR JACINTO TO INFUSE 1 UNIT OF PLATELETS TONIGHT. CALLED LAB TO NOTIFY OF ORDER.
--- NOTE | 2019-02-26 21:50 | NUR ---
STARTED UNIT OF PLATLETS PER ORDER..
--- NOTE | 2019-02-26 22:15 | NUR ---
CALLED RT PER PT REQUEST FOR PRN UPDRAFT TREATMENT.
--- NOTE | 2019-02-26 22:20 | NUR ---
FINISHED UNIT OF PLATELETS. RE-STARTED IV FLUIDS AND PRINT BINDING WORKER.
--- NOTE | 2019-02-27 01:20 | NUR ---
CALLED RT PER PT REQUEST FOR UPDRAFT TREATMENT.
[2019-02-27 04:57] VITALS: BP 126/79
[2019-02-27 05:41] LABS: BASOPHILS 0 % (0-2); EOSINOPHILS 0.5 % (0-7); HEMATOCRIT 27.4 % (36.0-48.0); HEMOGLOBIN 8.9 g/dL (12-16); IMMATURE GRANULOCYTES 2.3 % (0-5); LYMPHOCYTES 32.7 % (15-50); MCH 28.9 pg (26.0-34.0); MCHC 32.5 g/dL (31.0-37.0); MEAN PLATELET VOLUME 11.7 fL (7.4-10.4); MONOCYTES 8.2 % (2-11); NEUTROPHILS 56.3 % (40-80); RBC 3.08 10x6/uL (4.00-5.40); RDW 16.1 % (11.5-14.5); WBC 2.2 10x3/uL (4.8-10.8)
[2019-02-27 05:51] LABS: CALC OSMOLALITY 282 mosm/kg (275-300); CALCIUM 9.3 mg/dL (8.5-10.1); CARBON DIOXIDE 35.5 mmol/L (21.0-32.0); CHLORIDE - SERUM 94 mmol/L (98-107); CREATININE - SERUM 0.7 mg/dL (0.6-1.3); GLUCOSE 112 mg/dL (74-106); POTASSIUM - SERUM 3.5 mmol/L (3.5-5.1); SODIUM 140 mmol/L (136-145); UREA NITROGEN 22 mg/dL (7-18); eGFR NON AFRICAN AMERICAN > 90 mL/min (90-120)
[2019-02-27 05:56] LABS: PLATELET COUNT 22 10x3/uL (130-400)
--- NOTE | 2019-02-27 08:00 | NUR ---
ASSESSMENT PER FLOW SHEET. PT IS WITHOUT DISTRESS.CALL LIGHT IN REACH. FAMILY AT BEDSIDE
[2019-02-27 09:06] VITALS: BP 122/73
[2019-02-27 13:53] VITALS: BP 115/69
[2019-02-27 16:24] VITALS: BP 119/73
--- NOTE | 2019-02-27 19:00 | NUR ---
REPORT RECEIVED AND CARE OF PT ASSUMED. PT LYING IN LOW BAUMAN'S POSITION VISITING WITH HER MOTHER. LEFT PORT PATENT. O2 IN USE VIA NC AT 3.5 L. SAINZ CATHETER DRAINING TO GRAVITY WITH FRANDY URINE IN COLLECTION BAG. WILL MONITOR FOR NEEDS.
--- NOTE | 2019-02-27 19:34 | NUR ---
PT REMAINS WITHOUT CHANGE FROM INITIAL SHIFT ASSESSMENT. CONT PLAN OF CARE
[2019-02-27 19:35] VITALS: BP 113/69
--- NOTE | 2019-02-27 20:28 | NUR ---
HS MEDICATIONS GIVEN. WILL CONTINUE TO MONITOR FOR NEEDS.
[2019-02-28] VITALS: BP 112/76
[2019-02-28 03:54] LABS: HEMATOCRIT 27.6 % (36.0-48.0); MCH 29.2 pg (26.0-34.0); MCHC 32.6 g/dL (31.0-37.0); MCV 89.6 fL (80.0-100.0); RBC 3.08 10x6/uL (4.00-5.40); RDW 15.7 % (11.5-14.5); WBC 2.4 10x3/uL (4.8-10.8)
[2019-02-28 03:56] LABS: PLATELET COUNT 23 10x3/uL (130-400)
[2019-02-28 04:00] VITALS: BP 131/82
[2019-02-28 04:07] LABS: CALC OSMOLALITY 277 mosm/kg (275-300); CALCIUM 9.4 mg/dL (8.5-10.1); CARBON DIOXIDE 36.9 mmol/L (21.0-32.0); CHLORIDE - SERUM 95 mmol/L (98-107); CREATININE - SERUM 0.7 mg/dL (0.6-1.3); GLUCOSE 106 mg/dL (74-106); POTASSIUM - SERUM 3.6 mmol/L (3.5-5.1); SODIUM 137 mmol/L (136-145); UREA NITROGEN 23 mg/dL (7-18); VANCOMYCIN - TROUGH 23.2 ug/mL (10.0-20.0); eGFR NON AFRICAN AMERICAN > 90 mL/min (90-120)
[2019-02-28 04:26] LABS: LYMPHOCYTES 35 % (15-50); MONOCYTES 6 % (2-11); NEUTROPHILS 57 % (40-80); PLATELET ESTIMATE DECREASED
--- NOTE | 2019-02-28 08:00 | NUR ---
ASSESSMENT PER FLOW SHEET. PT IS UP AT BEDSIDE. SHE HAS BEEN UP TO BATHROOM AND REPORTS LARGE BM. SHE STATES SHE IS IN PAIN BECAUSE SHE HAS BEEN ASLEEP AND NOT USING PAIN PUMP. CAT WAGON OPERATOR USE INSTRUCTED. FAMILY AT BEDSIDE.CALL LIGHT IN REACH
[2019-02-28 09:08] VITALS: BP 127/76
--- NOTE | 2019-02-28 09:18 | NUR ---
HAVING NAUSEA AGAIN. REQUEST IV MEDS BE GIVEN AFTER SHE FEELS BETTER
--- NOTE | 2019-02-28 09:30 | NUR ---
MEDS ORDERED FOR INCREASED NAUSEA.PT REQUEST AM MEDS BE HELD DUE TO HER NOT FEELING WELL AND HER NAUSEA.SHE REPORTS THE TASTE MAKES HER SICK WHEN GIVEN IV.FAMILY IN ROOM. MONITOR FOR NEEDS.
--- NOTE | 2019-02-28 12:30 | NUR ---
SLEEPING THIS AM. MOM REMAINS IN ROOM.MONITOR FOR NEEDS.
[2019-02-28 13:36] VITALS: BP 136/86
--- NOTE | 2019-02-28 16:54 | NUR ---
PT UP AT BEDSIDE,SHE COMPLAINS OF TERRIBLE PAIN AND PRESSURE IN HER ABDOMEN.SHE REQUEST PLEUREX DRAIN BE DRAINED. SHE ALSO COMPLAINS OF SEVERE NAUSEA.MEDS ORDERED PER MAR.PLEUREX DRAIN HAS BEEN DRAINED USING FUR COAT SEWER,75CC OF VERY DARK LIQUID RETURNED IN PLEUREX CANISTER.REPIRATORY TX PER RESP. MONITOR FOR NEEDS.FAMILY AT BEDSIDE.
[2019-02-28 18:14] VITALS: BP 146/99
--- NOTE | 2019-02-28 19:00 | NUR ---
REPORT RECEIVED AND CARE OF PT ASSUMED. PT LYING IN LOW BAUMAN'S POSITION WITH EYES CLOSED AND EASY RESPIRATIONS. MOTHER IS AT BEDSIDE. LEFT IP PATENT WITH PROCALAMINE INFUSING AT 50 ML / HR; ZOFRAN INFUSING AT 4.7 ML/HR; D5NS INFUSING AT 10 ML/HR, AND STEAM TURBINE OPERATOR WITH DILAUDID FOR PAIN CONTROL. SAINZ CATHETER DRAINING TO GRAVITY WITH DARK FRANDY URINE IN COLLECTION BAG. WILL MONITOR FOR NEEDS. CALL LIGHT WITHIN REACH.
[2019-02-28 20:00] VITALS: BP 151/85
--- NOTE | 2019-02-28 20:06 | NUR ---
HS MEDICATIONS GIVEN...PUSHED MEDS VERY SLOWLY, PT C/O NAUSEA WHEN LINE IS FLUSHED.
[2019-03-01] VITALS: BP 123/79
[2019-03-01 04:00] VITALS: BP 124/79
[2019-03-01 05:36] LABS: BASOPHILS 0.4 % (0-2); EOSINOPHILS 0.8 % (0-7); HEMATOCRIT 25.8 % (36.0-48.0); HEMOGLOBIN 8.2 g/dL (12-16); IMMATURE GRANULOCYTES 1.7 % (0-5); LYMPHOCYTES 39.6 % (15-50); MCH 29.2 pg (26.0-34.0); MCHC 31.8 g/dL (31.0-37.0); MONOCYTES 4.6 % (2-11); NEUTROPHILS 52.9 % (40-80); RBC 2.81 10x6/uL (4.00-5.40); RDW 15.7 % (11.5-14.5); WBC 2.4 10x3/uL (4.8-10.8)
[2019-03-01 05:37] LABS: MCV 91.8 fL (80.0-100.0); PLATELET COUNT 21 10x3/uL (130-400)
[2019-03-01 05:51] LABS: CALC OSMOLALITY 284 mosm/kg (275-300); CALCIUM 9.3 mg/dL (8.5-10.1); CARBON DIOXIDE 37.4 mmol/L (21.0-32.0); CHLORIDE - SERUM 97 mmol/L (98-107); CREATININE - SERUM 0.6 mg/dL (0.6-1.3); GLUCOSE 95 mg/dL (74-106); SODIUM 141 mmol/L (136-145); UREA NITROGEN 24 mg/dL (7-18); eGFR NON AFRICAN AMERICAN > 90 mL/min (90-120)
--- NOTE | 2019-03-01 08:30 | NUR ---
PATIENT IN BED WITH IV INTACT. NO COMPLAINTS OR SIGNS OF DISTRESS. FAMILY AT BEDSIDE. CALL LIGHT WITHIN REACH.
[2019-03-01 09:01] VITALS: BP 120/77
[2019-03-01 12:57] VITALS: BP 114/74
[2019-03-01 16:38] VITALS: BP 119/80
--- NOTE | 2019-03-01 18:50 | NUR ---
PATIENT IN BED WITH NO COMPLAINTS. SAINZ INTACT. IV INTACT. FAMILY AT BEDSIDE. CALL LIGHT WITHIN REACH.
[2019-03-01 20:00] VITALS: BP 126/78
[2019-03-02 04:00] VITALS: BP 134/81
--- NOTE | 2019-03-02 05:25 | NUR ---
REC'D SITTING ON SIDE OF BED. AT BED SIDE.STATES HURT ALL OVER ALL THE TIME.NO DISTRESS OBSERVED.WILL CONTINUE TO MONITOR FOR ANY CHGES. AND FOLLOW CURRENT PLAN OF CARE
[2019-03-02 07:48] LABS: CALC OSMOLALITY 280 mosm/kg (275-300); CALCIUM 9.6 mg/dL (8.5-10.1); CARBON DIOXIDE 37.3 mmol/L (21.0-32.0); CHLORIDE - SERUM 94 mmol/L (98-107); CREATININE - SERUM 0.6 mg/dL (0.6-1.3); GLUCOSE 105 mg/dL (74-106); POTASSIUM - SERUM 4.1 mmol/L (3.5-5.1); SODIUM 138 mmol/L (136-145); UREA NITROGEN 26 mg/dL (7-18); eGFR NON AFRICAN AMERICAN > 90 mL/min (90-120)
[2019-03-02 08:08] LABS: HEMATOCRIT 25.7 % (36.0-48.0); HEMOGLOBIN 8.2 g/dL (12-16); MCH 29.3 pg (26.0-34.0); MCHC 31.9 g/dL (31.0-37.0); MCV 91.8 fL (80.0-100.0); RDW 15.5 % (11.5-14.5); WBC 2.5 10x3/uL (4.8-10.8)
[2019-03-02 08:13] LABS: PLATELET COUNT 23 10x3/uL (130-400)
[2019-03-02 09:06] LABS: EOSINOPHILS 3 % (0-7); LYMPHOCYTES 29 % (15-50); MONOCYTES 5 % (2-11); NEUTROPHILS 61 % (40-80)
[2019-03-02 09:07] LABS: PLATELET ESTIMATE DECREASED
[2019-03-02 09:34] VITALS: BP 125/83
--- NOTE | 2019-03-02 11:35 | NUR ---
Recommendations for prevention of skin breakdown: -Turn/reposition q 2 hours -Protect bony prominences -Bridge heels so they are not resting on pillows or mattress -Protect perineal skin with zinc oxide -Skin assessment q shift and prn with personal care
[2019-03-02 13:38] VITALS: BP 135/80
[2019-03-02 18:14] VITALS: BP 129/77
--- NOTE | 2019-03-02 18:55 | NUR ---
DRAINED PATIENTS PLEUREX AT THIS TIME. 50 CC DRAINED AND SOME AIR. PATIENT TOLERATED WITH SMALL AMOUNT OF PAIN. PORT INTACT WITH NO PROBLEMS. FAMILY AT BEDSIDE. CALL LIGHT WITHIN REACH. PATIENT HAS RECIEVED PHENERGAN TWICE FOR NAUSEA. SHE STATES HER DILAUDID CLINICAL UNIT COORDINATOR MAKES HER SIDE HURT WHERE HER CANCER IS WHEN SHE USES IT. ASK NIGHT NURSE TO LET PHYSICIAN KNOW IF CAME BY. PATIENT AND MOTHER STATED NO PHYSCIAN HAS COME BY TODAY.
[2019-03-02 20:00] VITALS: BP 124/72
[2019-03-03 04:00] VITALS: BP 125/78
[2019-03-03 05:37] LABS: CALC OSMOLALITY 283 mosm/kg (275-300); CALCIUM 9.6 mg/dL (8.5-10.1); CARBON DIOXIDE 36.6 mmol/L (21.0-32.0); CHLORIDE - SERUM 96 mmol/L (98-107); CREATININE - SERUM 0.6 mg/dL (0.6-1.3); GLUCOSE 116 mg/dL (74-106); POTASSIUM - SERUM 4.1 mmol/L (3.5-5.1); SODIUM 139 mmol/L (136-145); UREA NITROGEN 26 mg/dL (7-18); eGFR NON AFRICAN AMERICAN > 90 mL/min (90-120)
[2019-03-03 06:23] LABS: BASOPHILS 0.5 % (0-2); EOSINOPHILS 0 % (0-7); HEMATOCRIT 24.5 % (36.0-48.0); HEMOGLOBIN 7.9 g/dL (12-16); IMMATURE GRANULOCYTES 0.9 % (0-5); MCH 29.3 pg (26.0-34.0); MCHC 32.2 g/dL (31.0-37.0); MCV 90.7 fL (80.0-100.0); RDW 15.3 % (11.5-14.5); WBC 2.2 10x3/uL (4.8-10.8)
[2019-03-03 07:36] LABS: LYMPHOCYTES 35 % (15-50); MONOCYTES 2 % (2-11); NEUTROPHILS 63 % (40-80)
--- NOTE | 2019-03-03 07:39 | NUR ---
I have reviewed this patient and I concur with the Shift Assessment completed by the Licensed Practical Nurse today this shift.
[2019-03-03 07:48] LABS: PLATELET COUNT 32 10x3/uL (130-400)
--- NOTE | 2019-03-03 08:12 | NUR ---
PT RESTING IN BED WITH EYES CLOSED. OPENS SPONTANEOUSLY UPON HEARING STAFF ENTER ROOM. REPORTS PAIN 4/10 AT THIS TIME. O2 @ 2L NC IN PLACE. LEFT CHEST PORT ACCESSED AND PATENT. SITE WITHOUT REDNESS OR EDEMA. F/C PATENT TO GRAVITY. PT AND FAMILY DENY FURTHER NEEDS AT THIS TIME. CL WITHIN REACH. ENCOURAGED TO CALL WITH NEEDS. CONTINUE POC
[2019-03-03 09:37] VITALS: BP 128/77
--- NOTE | 2019-03-03 09:57 | NUR ---
Nutrition Follow up: Reviewed chart Pt resting-spoke with mother Pt is not drinking much on full liquid diet Procalamine continues at 50mL/hour Will add Ensure and spoke with mother about the nutrition content of Ensure Spoke with nursing about Procalamine-recommend to increase rate to 75mL/hour RD following
--- NOTE | 2019-03-03 14:59 | MORECARE ---
CASE MANAGEMENT DISCHARGE SUMMARY PATIENT: SOLOMON NUNEZ UNIT: [id number] ADM DATE: 02/07/19 AGE: 54 : 63 SEX: F ROOM/BED: D.2228 AUTHOR: RYANDOC PHYSICIAN: REFERRING PHYSICIAN: ARMIN VILLARREAL MD DATE OF SERVICE: 03/03/19 Discharge Plan Patient Name: SOLOMON NUNEZ Facility: [facility]:[place] : 1965 Planned Disposition: Home Anticipated Discharge Date: Discharge Date: Expected LOS: Initial Reviewer: [email or web address] Initial Review Date: 02/09/2019 Generated: 03/03/19 3:59 pm Comments DCP- Discharge Planning Updated by [email or web address]: Iris An on 03/03/19 1:[address] Spoke at length (with Julienne Flores present) with mother today about discharge plan. Mother states she is unable to go home. States she will speak with patient's wayne about accepting hospice. CM will continue to follow and assist with discharge planning/needs. DCP- Discharge Planning Updated by [email or web address]: Iris An on 02/16/19 4:[address] I spoke with patient, her and mother concerning discharge planning. I gave her brochures on hospice agencies in a hospital setting. She does not want to be moved to [facility]. I explained that [facility] has a floor in [facility] but is not a part of the hospital. She states she wishes to remain at [facility]. States she does not want to make the decision right now for hospice. She would like to move to a larger room. I informed her that tomorrow it is possible that a larger room will be available. She states she needs more time to decide on Hospice. I asked her if I could call [facility] and they can answer her questions for her and she wants to wait. I gave them my business card to call me with any needs or questions. CM will continue to follow and assist with discharge planning/needs. DCP- Discharge Planning Updated by [id number]: Iris An on 02/15/19 3:[address] I met with patient earlier today concerning order for Hospice consult. Patient is the only one in the room. She states her family will be here at 4PM today and she would like to discuss it with them first. Her mother called me after I left the room and has questions concerning hospice and is asking if her daughter can stay here with hospice. I informed her that she could and that we had a contract with [facility]. Her mother states she feels better now after her questions were answered. CM will continue to follow and assist with discharge planning/needs. DCP- Discharge Planning Updated by [id number]: Iris An on 02/09/19 9:[address] Patient Name: SOLOMON NUNEZ Admission Status: ER Accout number: [id number] Admission Date: 02-07-2019 : 1965 Admission Diagnosis: Attending: ARMIN VILLARREAL Current LOS: 2 Anticipated DC Date: Planned Disposition: Home Primary Insurance: MEDICAID [place] Discharge Planning Comments: CM met with patient, she is alone in the room. States she lives with her , 2 adult daughters and 7 year old son. She states she is partially dependent on her . States her helps her with her medications if "I don't feel well". I discussed the availability of SNF, rehab, home health and DME. She states her discharge plan is to return home with her . States she does not need any DME or home health at this time. CM will continue to follow and assist with discharge planning/needs. Director Of Conservation: Iris An DCPIA - Discharge Planning Initial Assessment Updated by [email or web address]: Iris An on 02/09/19 10:22 am * Is the patient Alert and Oriented? Yes * How many steps to enter\\exit or inside your home? 0/0 * PCP Dr. De La Torre or Russell * Pharmacy [facility] * Preadmission Environment Home with Family * ADLs Partial Dependent * Partial ADLs (Assistance needed) Medication Management * Equipment None * List name and contact numbers for known caregivers / representatives who currently or will assist patient after discharge: Diego - - [phone] Triny - mother - [phone] * Verbal permission to speak to the caregivers and representatives has been obtained from the patient. Yes * Community resources currently utilized None * Additional services required to return to the preadmission environment? No * Can the patient safely return to the preadmission environment? Yes * Has this patient been hospitalized within the prior 30 days at any hospital? Yes Last DP export: 02/16/19 4:53 pm Patient Name: SOLOMON NUNEZ Page [id number] at 1459 All edits/amendments must be made on the electronic document DICTATION DATE: 03/03/191458 ACCOUNTING SPECIALIST: SABINA 03/03/191458 RPT#: [id number] DC DATE: STATUS: ADM IN [facility] [address] [place] [address] END OF REPORT
[2019-03-03 17:07] VITALS: BP 131/83
[2019-03-03 20:00] VITALS: BP 126/82
--- NOTE | 2019-03-03 20:00 | NUR ---
EYES CLOSED RESTING QUITELY IN BED, FAMILY AT BEDSIDE, SEE SHIFT ASSESMENT, CALL LIGHT IN REACH
[2019-03-04 04:00] VITALS: BP 119/65
[2019-03-04 08:34] LABS: BASOPHILS 0 % (0-2); HEMATOCRIT 22.3 % (36.0-48.0); MCH 29.1 pg (26.0-34.0); MCHC 31.8 g/dL (31.0-37.0); MCV 91.4 fL (80.0-100.0); MONOCYTES 5.4 % (2-11); NEUTROPHILS 60.6 % (40-80); RBC 2.44 10x6/uL (4.00-5.40); RDW 15.3 % (11.5-14.5)
[2019-03-04 08:35] VITALS: BP 109/70
--- NOTE | 2019-03-04 08:35 | NUR ---
PT SON AT [facility], PT RICKY, CHANGED DAYCARE PROVIDER DAYCARE PROVIDER WAS OUT, ADMINISTERED MORNING MEDS, ADMINISTERED PRN ANXIETY MED PT SEEMED UNCOMFORTABLE, CONTINUE WITH PLAN OF CARE
[2019-03-04 08:38] LABS: CALC OSMOLALITY 282 mosm/kg (275-300); CALCIUM 9.2 mg/dL (8.5-10.1); CARBON DIOXIDE 37.9 mmol/L (21.0-32.0); CHLORIDE - SERUM 95 mmol/L (98-107); CREATININE - SERUM 0.7 mg/dL (0.6-1.3); GLUCOSE 115 mg/dL (74-106); POTASSIUM - SERUM 3.6 mmol/L (3.5-5.1); SODIUM 139 mmol/L (136-145); UREA NITROGEN 25 mg/dL (7-18); eGFR NON AFRICAN AMERICAN > 90 mL/min (90-120)
[2019-03-04 08:43] LABS: HEMOGLOBIN 7.1 g/dL (12-16)
[2019-03-04 08:44] LABS: PLATELET COUNT 27 10x3/uL (130-400)
--- NOTE | 2019-03-04 08:44 | NUR ---
RECEIVED CALL FROM CHRISTIANNE IN LAB, PT H/H IS 7.1 AND 27 CALLED EMMANUELLE AT [phone] NO ANSWER [id number] NO ANSWER HAD EMMANUELLE PAGED
--- NOTE | 2019-03-04 08:49 | NUR ---
SPOKE TO EMMANUELLE IN REGARDS TO PT H/H WAS ADVISED TO CALL DR KHAN OFFICE, CALLED OFFICE AND WAS ON HOLD FOR SEVERAL MINUTES THEN GOT HUNG UP ON. WILL CALL BACK
--- NOTE | 2019-03-04 09:31 | NUR ---
SPOKE TO SHAHRIAR AT DR TAYLOR'S OFFICE, PER SHAHRIAR TAYLOR IS IN [place] TODAY AND THEY WILL SEND A MESSAGE, IF ANY ORDERS GIVEN THEY WILL RETURN CALL
--- NOTE | 2019-03-04 09:34 | MORECARE ---
CASE MANAGEMENT DISCHARGE SUMMARY PATIENT: SOLOMON NUNEZ UNIT: [id number] ADM DATE: 02/07/19 AGE: 54 : 63 SEX: F ROOM/BED: D.2228 AUTHOR: RYANDOC PHYSICIAN: REFERRING PHYSICIAN: ARMIN VILLARREAL MD DATE OF SERVICE: 03/04/19 Discharge Plan Patient Name: SOLOMON NUNEZ Facility: [facility]:[place] : 1965 Planned Disposition: Home Anticipated Discharge Date: Discharge Date: Expected LOS: Initial Reviewer: [email or web address] Initial Review Date: 02/09/2019 Generated: 03/04/19 10:34 am Comments DCP- Discharge Planning Updated by [id number]: Iirs An on 03/04/19 8:[address] Patient's mother called me from the room and states that they would like a packet from [facility] about the type of care she will receive. Her mother states her daughter does not want to leave [facility] and she is aware that [facility] has the contract here. I asked if I could call [facility] to bring out their paperwork and she agrees. I called Moy and asked him to bring information to the patient and family on Hospice. I also asked if he could have Fernandaita come out to speak with them. He states he will go to the office and get some information and will be right here. CM will continue to follow and assist with discharge planning/needs. DCP- Discharge Planning Updated by [id number]: Iris An on 03/03/19 1:[address] Spoke at length (with Julienne Flores present) with mother today about discharge plan. Mother states she is unable to go home. States she will speak with patient's wayne about accepting hospice. CM will continue to follow and assist with discharge planning/needs. DCP- Discharge Planning Updated by [id number]: Iris An on 02/16/19 4:[address] I spoke with patient, her and mother concerning discharge planning. I gave her brochures on hospice agencies in a hospital setting. She does not want to be moved to [facility]. I explained that [facility] has a floor in [facility] but is not a part of the hospital. She states she wishes to remain at [facility]. States she does not want to make the decision right now for hospice. She would like to move to a larger room. I informed her that tomorrow it is possible that a larger room will be available. She states she needs more time to decide on Hospice. I asked her if I could call [facility] and they can answer her questions for her and she wants to wait. I gave them my business card to call me with any needs or questions. CM will continue to follow and assist with discharge planning/needs. DCP- Discharge Planning Updated by [id number]: Iris An on 02/15/19 3:[address] I met with patient earlier today concerning order for Hospice consult. Patient is the only one in the room. She states her family will be here at 4PM today and she would like to discuss it with them first. Her mother called me after I left the room and has questions concerning hospice and is asking if her daughter can stay here with hospice. I informed her that she could and that we had a contract with [facility]. Her mother states she feels better now after her questions were answered. CM will continue to follow and assist with discharge planning/needs. DCP- Discharge Planning Updated by [id number]: Iris An on 02/09/19 9:[address] Patient Name: SOLOMON NUNEZ Admission Status: ER Accout number: [id number] Admission Date: 02-07-2019 : 1965 Admission Diagnosis: Attending: ARMIN VILLARREAL Current LOS: 2 Anticipated DC Date: Planned Disposition: Home Primary Insurance: MEDICAID [place] Discharge Planning Comments: CM met with patient, she is alone in the room. States she lives with her , 2 adult daughters and 7 year old son. She states she is partially dependent on her . States her helps her with her medications if "I don't feel well". I discussed the availability of SNF, rehab, home health and DME. She states her discharge plan is to return home with her . States she does not need any DME or home health at this time. CM will continue to follow and assist with discharge planning/needs. Department Editor: Iris An DCPIA - Discharge Planning Initial Assessment Updated by [id number]: Iris An on 02/09/19 10:22 am * Is the patient Alert and Oriented? Yes * How many steps to enter\\exit or inside your home? 0/0 * PCP Dr. De La Torre or Russell * Pharmacy [facility] * Preadmission Environment Home with Family * ADLs Partial Dependent * Partial ADLs (Assistance needed) Medication Management * Equipment None * List name and contact numbers for known caregivers / representatives who currently or will assist patient after discharge: Diego - - [phone] Triny - mother - [phone] * Verbal permission to speak to the caregivers and representatives has been obtained from the patient. Yes * Community resources currently utilized None * Additional services required to return to the preadmission environment? No * Can the patient safely return to the preadmission environment? Yes * Has this patient been hospitalized within the prior 30 days at any hospital? Yes Last DP export: 03/03/19 1:59 p Patient Name: SOLOMON NUNEZ Page 32126 at 0934 All edits/amendments must be made on the electronic document DICTATION DATE: 03/04/19932 ENVIRONMENTAL PROGRAMS MANAGER: SABINA 03/04/19932 RPT#: [id number] DC DATE: STATUS: ADM IN [facility] [address] [place] [address] END OF REPORT
--- NOTE | 2019-03-04 11:15 | NUR ---
PT ASLEEP IN BED, MOTHER AT BEDSIDE, EXPLAINED TO PT MOTHER IN REGARDS TO PT H&H LOW AND WILL NEED BLOOD, PER MOTHERS REQUEST PLEASE ADMINISTER PHENAGREN SO THAT PT IS NOT SICK WHILE RECEIVING BLOOD, ADVISED HER I WILL DO MY BEST TO KEEP PT COMFORTABLE. CONTINUE WITH PLAN OF CARE
--- NOTE | 2019-03-04 12:19 | NUR ---
STARTED PT BLOOD 1ST UNIT, CONTINUE TO MONITOR
[2019-03-04 12:37] VITALS: BP 104/73
--- NOTE | 2019-03-04 13:07 | NUR ---
FAMILY AT BEDSIDE. DENIES NEEDS.
[2019-03-04 20:00] VITALS: BP 111/79
--- NOTE | 2019-03-04 20:00 | NUR ---
EYES CLOSED RESP UNLABORED, MOTHER AT BEDSIDE STATES SHE HAS BEEN SLEEPING ALL DAY LIKE THIS, NO APPARENT DISTRESS, SEE SHIFT ASSESSMENT, CALL LIGHT IN REACH
[2019-03-05] VITALS: BP 120/84
[2019-03-05 04:00] VITALS: BP 128/73
[2019-03-05 06:29] LABS: CALC OSMOLALITY 299 mosm/kg (275-300); CALCIUM 8.4 mg/dL (8.5-10.1); CHLORIDE - SERUM 100 mmol/L (98-107); CREATININE - SERUM 0.7 mg/dL (0.6-1.3); POTASSIUM - SERUM 3.7 mmol/L (3.5-5.1); SODIUM 142 mmol/L (136-145); UREA NITROGEN 29 mg/dL (7-18); eGFR NON AFRICAN AMERICAN > 90 mL/min (90-120)
[2019-03-05 06:30] LABS: GLUCOSE 291 mg/dL (74-106)
[2019-03-05 06:59] LABS: HEMATOCRIT 26.2 % (36.0-48.0); MCH 29.1 pg (26.0-34.0); MCHC 32.8 g/dL (31.0-37.0); RDW 16.7 % (11.5-14.5); WBC 2.1 10x3/uL (4.8-10.8)
[2019-03-05 07:00] LABS: HEMOGLOBIN 8.6 g/dL (12-16); MCV 88.5 fL (80.0-100.0); RBC 2.96 10x6/uL (4.00-5.40)
[2019-03-05 07:01] LABS: PLATELET COUNT 23 10x3/uL (130-400)
--- NOTE | 2019-03-05 07:56 | NUR ---
PT RESTING IN BED. REPOSITIONED PT IN BED WITH . PT MOANING. REFUSE TO USE DIE MOUNTER. STATES, "HE DOES NOT WANT ATIVAN AT THIS TIME AND THE PT STATES THE DIE MOUNTER HURTS THE PT WHERE HER CA IS LOCATED." NO S/S OF ACUTE DISTRESS. CL IN PLACE.
[2019-03-05 08:17] LABS: LYMPHOCYTES 34 % (15-50); MONOCYTES 4 % (2-11); NEUTROPHILS 60 % (40-80); PLATELET ESTIMATE DECREASED
[2019-03-05 08:18] LABS: HYPOCHROMASIA 2+; ROULEAUX 2+
[2019-03-05 08:44] VITALS: BP 119/79
--- NOTE | 2019-03-05 09:07 | NUR ---
SPOKE WITH DR TAYLOR ABOUT CL PLATELET-23 AND WBC 2.1. HE STATED, "WILL BE IN TO SEE PT IN 30-45 MINUTES."
--- NOTE | 2019-03-05 12:08 | NUR ---
PT UNABLE TO TAKE PO MEDS. DR TAYLOR STATED, DC ALL PO MEDS AND STOP LABS UNLESS NEEDED." SPOKE WITH MOTHER WHO IS, "OK WITH POC"
[2019-03-05 12:48] VITALS: BP 119/76
--- NOTE | 2019-03-05 13:38 | NUR ---
DRAINED 150ML OFF ABD VIA PLEURAVAC USING STERILE TECHNIQUE. NO S/S OF ACUTE DISTRESS. MOTHER AT BEDSIDE. CL IN PLACE.
--- NOTE | 2019-03-05 15:55 | NUR ---
PT ASSISTED OFF THE FLOOR VIA WC BY AUTOMOTIVE PROJECT ENGINEER. ALL BELONGING SENT WITH PT. NO S/S OF ACUTE DISTRESS.
--- NOTE | 2019-03-05 19:24 | NUR ---
PT RESTING IN BED. CHEST RISING AND FALLING. NO S/S OF ACUTE DISTRESS. CL IN PLACE.
[2019-03-05 19:56] VITALS: BP 134/84
[2019-03-06] VITALS: BP 133/81
--- NOTE | 2019-03-06 05:30 | NUR ---
I have reviewed this patient and I concur with the Shift Assessment completed by the Licensed Practical Nurse today this shift.
--- NOTE | 2019-03-06 07:49 | NUR ---
PT RESTING IN BED. DENIES ANY NEEDS. DAUGHTERS AT BEDSIDE. CL IN PLACE. NO S/S OF ACUTE DISTRESS.
[2019-03-06 08:59] VITALS: BP 126/84
--- NOTE | 2019-03-06 09:24 | NUR ---
PT SAT UP ON SIDE OF BED VOMITING BROWN BILE. PHENERGAN GIVEN PER MD ORDERS. DAUGHTER AT BEDSIDE.NO S/S OF ACUTE DISTRESS. CL IN PLACE
--- NOTE | 2019-03-06 12:17 | NUR ---
SPOKE WITH ABOUT THE PT CONDITION. PT VOMITED X3 TIMES THIS SHIFT. PT MOANING AND , "JOAQUIN, OH JOAQUIN HELP ME." PT HOLDING STOMACH IN PAIN. STRATEGIC PARTNERSHIP MANAGER ASSISTED ME WITH REPOSITING PT IN THE BED. PHENERGAN GIVEN TO PT X2 THIS SHIFT. PT JAUNDICE. STATED,"I KNOW I NEED TO MAKE A DECISION AND WILL DO SO IN THE NEXT DAY OR TWO." "THANK YOU." MOTHER AT BEDSIDE UPSET ABOUT THE "GRANDAUGHTERS BLAMINING ME FOR THEIR MOTHER." EXPLAINED THE GRIEVING PROCESS. MOTHER "THANKED ME FOR TALKING TO HER"
[2019-03-06 17:12] VITALS: BP 124/92
--- NOTE | 2019-03-06 18:30 | NUR ---
PT RESTING IN BED. CHEST RISING AND FALLING. NO S/S OF ACUTE DISTRESS. CL IN PLACE.
[2019-03-06 19:31] VITALS: BP 137/87
--- NOTE | 2019-03-06 19:50 | NUR ---
RECEIVED REPORT, ASSUMED CARE, SLEEPING, MOTHER AT BEDSIDE, SAINZ TO GRAVITY, DENIES NEEDS, WILL CONTINUE POC
[2019-03-07] VITALS: BP 121/86
--- NOTE | 2019-03-07 05:40 | NUR ---
I have reviewed this patient and I concur with the Shift Assessment completed by the Licensed Practical Nurse today this shift.
--- NOTE | 2019-03-07 07:54 | NUR ---
PT SITTING UP IN BED. ALERT. EYES OPEN. AT BEDSIDE. CO OF "NAUSEA" UNABLE TO ADMINISTER PHENERGAN AT THIS TIME DUE TO JUST GIVEN 2 HOURS PRIOR. NO S/S OF ACUTE DISTRESS. CL IN PLACE.
[2019-03-07 08:45] VITALS: BP 128/78
[2019-03-07 12:00] VITALS: BP 124/79
[2019-03-07 16:30] VITALS: BP 135/85
--- NOTE | 2019-03-07 18:11 | NUR ---
PT SITTING UP IN BED PLAYING ON CELL PHONE. CO OF " NOT FEELING WELL" OFFERED PHENERGAN BUT PT REFUSED. NO S/S OF ACUTE DISTRESS. MOTHER AT BEDSIDE.
[2019-03-07 20:31] VITALS: BP 130/86
--- NOTE | 2019-03-08 02:56 | NUR ---
I have reviewed this patient and I concur with the Shift Assessment completed by the Licensed Practical Nurse today this shift.
[2019-03-08 04:59] VITALS: BP 139/88
[2019-03-08 09:13] VITALS: BP 131/86
--- NOTE | 2019-03-08 10:42 | NUR ---
MORNING ASSESSMENT COMPLETE. SEE ASSESSMENT FLOWSHEET FOR FURTEHR DETIALS. PT LYING IN BED AAO X4 TO PERSON, PLACE, TIME, AND SITUATION. DENIES NEEDS AT THIS TIME. CL IN REACH. SIDE RAILS UP X3 FOR PT SAEFTY. BED IN LOWEST POSITION. DAUGHTER, , AND SON AT BEDSIDE.
[2019-03-08 12:37] LABS: BASOPHILS 0.5 % (0-2); EOSINOPHILS 0.5 % (0-7); HEMATOCRIT 26.1 % (36.0-48.0); HEMOGLOBIN 8.2 g/dL (12-16); LYMPHOCYTES 31.2 % (15-50); MCH 28.9 pg (26.0-34.0); MCHC 31.4 g/dL (31.0-37.0); MCV 91.9 fL (80.0-100.0); MONOCYTES 2.5 % (2-11); NEUTROPHILS 64.3 % (40-80); RBC 2.84 10x6/uL (4.00-5.40); RDW 14.8 % (11.5-14.5)
[2019-03-08 13:09] LABS: PLATELET COUNT 22 10x3/uL (130-400)
[2019-03-08 13:30] LABS: PLATELET ESTIMATE DECREASED
[2019-03-08 13:56] VITALS: BP 136/86
[2019-03-08 17:04] VITALS: BP 140/87
[2019-03-08 20:00] VITALS: BP 136/87
--- NOTE | 2019-03-08 20:30 | NUR ---
THE PATIENT WAS LYING IN BED AND VISITING WITH FAMILY WHEN STAFF ENTERED HER ROOM. BED IS IN THE LOW POSITION WITH SIDERAILS X3 AND CALL LIGHT WITHIN REACH. FAMILY DEMONSTRATES APPROPRIATE USE OF A CALL LIGHT. THE PATIENT APPEARS COMFORTABLE WITH NO QUESTIONS OR CONCERNS AT THIS TIME.
--- NOTE | 2019-03-09 03:28 | NUR ---
FAMILY IN ROOM. THE PATIENT HAS NO QUESTIONS OR CONCERNS AT THIS TIME.
[2019-03-09 04:00] VITALS: BP 122/90
--- NOTE | 2019-03-09 08:30 | NUR ---
ASSESSMENT PER FLOW SHEET. PT DENIES NEEDS AT PRESENT.CALL LIGHT IN REACH
[2019-03-09 08:51] VITALS: BP 135/85
[2019-03-09 13:21] VITALS: BP 145/90
--- NOTE | 2019-03-09 15:15 | NUR ---
CALL TO DR. KHAN OFFICE RE.. PAIN MEDS,NAUSEA
--- NOTE | 2019-03-09 15:37 | MORECARE ---
CASE MANAGEMENT DISCHARGE SUMMARY PATIENT: SOLOMON NUNEZ UNIT: [id number] ADM DATE: 02/07/19 AGE: 54 : 63 SEX: F ROOM/BED: D.2228 AUTHOR: RYANDOC PHYSICIAN: REFERRING PHYSICIAN: ARMIN VILLARREAL MD DATE OF SERVICE: 03/09/19 Discharge Plan Patient Name: SOLOMON NUNEZ Facility: [facility]:[place] : 1965 Planned Disposition: Home Anticipated Discharge Date: Discharge Date: Expected LOS: Initial Reviewer: [email or web address] Initial Review Date: 02/09/2019 Generated: 03/09/19 4:37 pm DCP- Discharge Planning Updated by [id number]: Iris An on 03/04/19 8:[address] Patient's mother called me from the room and states that they would like a packet from [facility] about the type of care she will receive. Her mother states her daughter does not want to leave [facility] and she is aware that [facility] has the contract here. I asked if I could call [facility] to bring out their paperwork and she agrees. I called Moy and asked him to bring information to the patient and family on Hospice. I also asked if he could have Fernandaita come out to speak with them. He states he will go to the office and get some information and will be right here. CM will continue to follow and assist with discharge planning/needs. DCP- Discharge Planning Updated by [id number]: Iris Nataliya on 03/03/19 1:[address] Spoke at length (with Julienne Flores present) with mother today about discharge plan. Mother states she is unable to go home. States she will speak with patient's wayne about accepting hospice. CM will continue to follow and assist with discharge planning/needs. DCP- Discharge Planning Updated by [email or web address]: Iris Gentilebrandon on 02/16/19 4:[address] I spoke with patient, her and mother concerning discharge planning. I gave her brochures on hospice agencies in a hospital setting. She does not want to be moved to [facility]. I explained that [facility] has a floor in [facility] but is not a part of the hospital. She states she wishes to remain at [facility]. States she does not want to make the decision right now for hospice. She would like to move to a larger room. I informed her that tomorrow it is possible that a larger room will be available. She states she needs more time to decide on Hospice. I asked her if I could call [facility] and they can answer her questions for her and she wants to wait. I gave them my business card to call me with any needs or questions. CM will continue to follow and assist with discharge planning/needs. DCP- Discharge Planning Updated by [id number]: Iris An on 02/15/19 3:[address] I met with patient earlier today concerning order for Hospice consult. Patient is the only one in the room. She states her family will be here at 4PM today and she would like to discuss it with them first. Her mother called me after I left the room and has questions concerning hospice and is asking if her daughter can stay here with hospice. I informed her that she could and that we had a contract with [facility]. Her mother states she feels better now after her questions were answered. CM will continue to follow and assist with discharge planning/needs. DCP- Discharge Planning Updated by [email or web address]: Iris An on 02/09/19 9:[address] Patient Name: SOLOMON NUNEZ Admission Status: ER Accout number: [id number] Admission Date: 02-07-2019 : 1965 Admission Diagnosis: Attending: ARMIN VILLARREAL Current LOS: 2 Anticipated DC Date: Planned Disposition: Home Primary Insurance: MEDICAID [place] Discharge Planning Comments: CM met with patient, she is alone in the room. States she lives with her , 2 adult daughters and 7 year old son. She states she is partially dependent on her . States her helps her with her medications if "I don't feel well". I discussed the availability of SNF, rehab, home health and DME. She states her discharge plan is to return home with her . States she does not need any DME or home health at this time. CM will continue to follow and assist with discharge planning/needs. Silk Hanger: Iris An DCPIA - Discharge Planning Initial Assessment Updated by [id number]: Iris An on 02/09/19 10:22 am * Is the patient Alert and Oriented? Yes * How many steps to enter\\exit or inside your home? 0/0 * PCP Dr. De La Torre or [facility] * Pharmacy [place] * Preadmission Environment Home with Family * ADLs Partial Dependent * Partial ADLs (Assistance needed) Medication Management * Equipment None * List name and contact numbers for known caregivers / representatives who currently or will assist patient after discharge: Diego - - [phone] Triny Colon mother - [phone] * Verbal permission to speak to the caregivers and representatives has been obtained from the patient. Yes * Community resources currently utilized None * Additional services required to return to the preadmission environment? No * Can the patient safely return to the preadmission environment? Yes * Has this patient been hospitalized within the prior 30 days at any hospital? Yes Coverage Notice Reviewer: [id number] Isaiah nA Notice Issued Date-Time: 03/04/2019 9:44 Notice Type: Patient Choice Letter Notice Delivered To: Family Member Relationship to Patient: Mother Retail Director Name: Triny Campbell Delivery Method: HAND - Hand Delivered Candy Days: Prior Verbal Notification: Recipient Understood Notice: Yes Recipient Signature: Yes Med Rec Note Co-signed by Attending: Coverage Notice Comment: DIAMOND for [facility] signed Last DP export: 03/04/19 8:34 a Patient Name: SOLOMON NUNEZ Page [id number] at 1537 All edits/amendments must be made on the electronic document DICTATION DATE: 03/09/19 1536 FISCAL MANAGER: SABINA 03/09/19 1536 RPT#: [id number] DC DATE: STATUS: ADM IN [facility] [address] [place] [address] END OF REPORT
[2019-03-09 17:52] VITALS: BP 136/83
[2019-03-09 20:00] VITALS: BP 137/84
--- NOTE | 2019-03-09 20:30 | NUR ---
LYING QUIELTY WITH NO DISTRESS NOTED. O2 @ 3L PER NC ON. RESP UNLABORED. IV INFUSING TO LEFT PORT WITHOUT REDNESS OR EDEMA NOTED. FAMILY AT BEDSIDE. CL IN REACH
[2019-03-10 04:00] VITALS: BP 133/84
--- NOTE | 2019-03-10 04:41 | NUR ---
I have reviewed this patient and I concur with the Shift Assessment completed by the Licensed Practical Nurse today this shift.
[2019-03-10 09:14] VITALS: BP 141/87
[2019-03-10 12:41] VITALS: BP 122/86
--- NOTE | 2019-03-10 12:59 | NUR ---
NUTRITION F//U CHART REVIEWED. FULL LIQUID DIET WITH POOR PO INTAKE. ENSURE HAS BEEN ADDED TO MEALS. WILL CONTINUE TO PROVIDE FULL LIQUIDS(PT CHOICE) AND ENSURE. RD FOLLOWING
[2019-03-10 17:37] VITALS: BP 133/82
--- NOTE | 2019-03-10 18:05 | NUR ---
PORT DRESSING CHANGED USING STERILE TECHNIQUE
[2019-03-10 20:00] VITALS: BP 143/85
[2019-03-11 04:32] VITALS: BP 144/83
--- NOTE | 2019-03-11 07:30 | NUR ---
PATIENT RECD RESTING IN BED, DAUGHTERS AT SIDE. NO DISTRESS, DENIES NEED FOR PAIN OR NAUSEA MEDICATION AT THIS TIME. CL IN REACH
[2019-03-11 09:25] VITALS: BP 152/88
--- NOTE | 2019-03-11 10:04 | NUR ---
PATIENT HAS AGREED TO HOSPICE CONSULT
[2019-03-11 20:00] VITALS: BP 156/85
[2019-03-12 04:00] VITALS: BP 139/84
--- NOTE | 2019-03-12 08:19 | NUR ---
LETHARGIC, RESPONDS MINIMALLY TO VERBAL STIMULI, 02 PRESENT AT 2LPM, APNEIC EPISODES, SAINZ CATHETER PRESENT, DARK FRANDY URINE IN COLLECTION BAG, FAMILY PRESENT IN ROOM, LEFT CHEST PORT PATENT INFUSING PROCAL AT 50, ZOFRAN DRIP AT 4.7 AND DILAUDID FIELD SALES EXECUTIVE. DENIES ANY NEEDS OR DISCOMFORTS, BED LOWERED AND LOCKED, CALL LIGHT WITHIN REACH. CPOC
[2019-03-12 08:45] VITALS: BP 113/76
--- NOTE | 2019-03-12 10:15 | NUR ---
FAMILY AT BEDSIDE. PT IS RESTING. MOM DENIES NEEDS AT PRESENT.CALL LIGHT IN REACH
[2019-03-12 11:01] VITALS: BP 128/80
[2019-03-12 14:08] VITALS: BP 128/87
--- NOTE | 2019-03-12 14:16 | MORECARE ---
CASE MANAGEMENT DISCHARGE SUMMARY PATIENT: SOLOMON NUNEZ UNIT: [id number] ADM DATE: 02/07/19 AGE: 54 : 63 SEX: F ROOM/BED: D.2228 AUTHOR: RYAN,DOC PHYSICIAN: REFERRING PHYSICIAN: ARMIN VILLARREAL MD DATE OF SERVICE: 03/12/19 Discharge Plan Patient Name: SOLOMON NUNEZ Facility: [facility]:[place] : 1965 Planned Disposition: Home Anticipated Discharge Date: Discharge Date: Expected LOS: Initial Reviewer: [email or web address] Initial Review Date: 02/09/2019 Generated: 03/12/19 3:16 pm Comments DCP- Discharge Planning Updated by [email or web address]: Cherie Alarcon on 03/12/19 1:[address] [facility] HERE, PAPERS SIGNED, CALLED [facility] FOR DISCHARGE ORDER DCP- Discharge Planning Updated by [id number]: Iris An on 03/04/19 8:[address] Patient's mother called me from the room and states that they would like a packet from [facility] about the type of care she will receive. Her mother states her daughter does not want to leave [facility] and she is aware that [facility] has the contract here. I asked if I could call [facility] to bring out their paperwork and she agrees. I called Moy and asked him to bring information to the patient and family on Hospice. I also asked if he could have Tom come out to speak with them. He states he will go to the office and get some information and will be right here. CM will continue to follow and assist with discharge planning/needs. DCP- Discharge Planning Updated by [id number]: Iris An on 03/03/19 1:[address] Spoke at length (with Julienne Flores present) with mother today about discharge plan. Mother states she is unable to go home. States she will speak with patient's tondanie about accepting hospice. CM will continue to follow and assist with discharge planning/needs. DCP- Discharge Planning Updated by [id number]: Iris An on 02/16/19 4:[address] I spoke with patient, her and mother concerning discharge planning. I gave her brochures on hospice agencies in a hospital setting. She does not want to be moved to [facility]. I explained that [facility] has a floor in [facility] but is not a part of the hospital. She states she wishes to remain at [facility]. States she does not want to make the decision right now for hospice. She would like to move to a larger room. I informed her that tomorrow it is possible that a larger room will be available. She states she needs more time to decide on Hospice. I asked her if I could call [facility] and they can answer her questions for her and she wants to wait. I gave them my business card to call me with any needs or questions. CM will continue to follow and assist with discharge planning/needs. DCP- Discharge Planning Updated by [id number]: Iris An on 02/15/19 3:[address] I met with patient earlier today concerning order for Hospice consult. Patient is the only one in the room. She states her family will be here at 4PM today and she would like to discuss it with them first. Her mother called me after I left the room and has questions concerning hospice and is asking if her daughter can stay here with hospice. I informed her that she could and that we had a contract with [facility]. Her mother states she feels better now after her questions were answered. CM will continue to follow and assist with discharge planning/needs. DCP- Discharge Planning Updated by [id number]: Iris An on 02/09/19 9:[address] Patient Name: SOLOMON NUNEZ Admission Status: ER Accout number: [id number] Admission Date: 02-07-2019 : 1965 Admission Diagnosis: Attending: ARMIN VILLARREAL Current LOS: 2 Anticipated DC Date: Planned Disposition: Home Primary Insurance: MEDICAID [place] Discharge Planning Comments: CM met with patient, she is alone in the room. States she lives with her , 2 adult daughters and 7 year old son. She states she is partially dependent on her . States her helps her with her medications if "I don't feel well". I discussed the availability of SNF, rehab, home health and DME. She states her discharge plan is to return home with her . States she does not need any DME or home health at this time. CM will continue to follow and assist with discharge planning/needs. Booking Agent: Iris An DCPIA - Discharge Planning Initial Assessment Updated by [email or web address]: Iris An on 02/09/19 10:22 am * Is the patient Alert and Oriented? Yes * How many steps to enter\\exit or inside your home? 0/0 * PCP Dr. De La Torre or [facility] * Pharmacy Home [facility] * Preadmission Environment Home with Family * ADLs Partial Dependent * Partial ADLs (Assistance needed) Medication Management * Equipment None * List name and contact numbers for known caregivers / representatives who currently or will assist patient after discharge: Diego - - [phone] Triny Colon mother [phone] * Verbal permission to speak to the caregivers and representatives has been obtained from the patient. Yes * Community resources currently utilized None * Additional services required to return to the preadmission environment? No * Can the patient safely return to the preadmission environment? Yes * Has this patient been hospitalized within the prior 30 days at any hospital? Yes Coverage Notice Reviewer: [id number] - Iris An Notice Issued Date-Time: 03/04/2019 9:44 Notice Type: Patient Choice Letter Notice Delivered To: Family Member Relationship to Patient: Mother Land Management Supervisor Name: Triny Campbell Delivery Method: HAND - Hand Delivered Candy Days: Prior Verbal Notification: Recipient Understood Notice: Yes Recipient Signature: Yes Med Rec Note Co-signed by Attending: Coverage Notice Comment: DI[facility]OND for [facility] signed Last DP export: 03/09/19 2:37 p Patient Name: SOLOMON NUNEZ Page [id number] at 1416 All edits/amendments must be made on the electronic document DICTATION DATE: 03/12/19 1415 BROOD HATCHERY MANAGER: SABINA 03/12/19 1415 RPT#: [id number] DC DATE: STATUS: ADM IN [facility] [address] [place] [address] END OF REPORT
== END 2019-03-12 14:43 | disposition hospice, inpatient (51) | DRG 981 ==
LOC: D.ER 19:53 → D.MS 20:44
PROVIDERS: Emergency Medicine; Family Medicine; General Practice; Internal Medicine Hematology & Oncology; Radiology Diagnostic Radiology; Surgery; ADMIT Internal Medicine Nephrology; ATTEND Internal Medicine Nephrology
PROC: 05H633Z Insertion of Infusion Device into Left Subclavian Vein, Percutaneous Approach (ICD-10-PCS; 2019-02-10)
PROC: 0JH60WZ Insertion of Totally Implantable Vascular Access Device into Chest Subcutaneous Tissue and Fascia, Open Approach (ICD-10-PCS; principal; 2019-02-10 14:45)
PROC: 0W9G3ZZ Drainage of Peritoneal Cavity, Percutaneous Approach (ICD-10-PCS; 2019-02-12)
PROC: 0JH83XZ Insertion of Tunneled Vascular Access Device into Abdomen Subcutaneous Tissue and Fascia, Percutaneous Approach (ICD-10-PCS; 2019-02-15)
DX: C56.9 Malignant neoplasm of unspecified ovary (principal); D61.810 Antineoplastic chemotherapy induced pancytopenia; J18.9 Pneumonia, unspecified organism; E43 Unspecified severe protein-calorie malnutrition; I50.33 Acute on chronic diastolic (congestive) heart failure; C78.6 Secondary malignant neoplasm of retroperitoneum and peritoneum; K56.609 Unspecified intestinal obstruction, unspecified as to partial versus complete obstruction; E44.0 Moderate protein-calorie malnutrition; R18.0 Malignant ascites; R78.81 Bacteremia; D69.59 Other secondary thrombocytopenia; D70.2 Other drug-induced agranulocytosis; P28.89 Other specified respiratory conditions of newborn; R11.2 Nausea with vomiting, unspecified; R19.7 Diarrhea, unspecified; E86.0 Dehydration

== ENCOUNTER 2019-03-12 14:43 | Inpatient (IN) | payer OTHER ==
[~2019-03-12] VITALS: Ht 160 cm; Wt 72.7 kg
[2019-03-12 15:51] VITALS: BP 128/81; Ht 160 cm; Wt 72.7 kg
--- NOTE | 2019-03-12 16:08 | NUR ---
ASSESSMENT PER FLOW SHEET. PT IS LETHARGIC. SHE IS WITHOUT SIGNS OF DISTRESS. HER MOM IS AT BEDSIDE.CALL LIGHT USE INSTRUCTED.
--- NOTE | 2019-03-12 16:19 | NUR ---
SCD'S ON PT ORDERED
--- NOTE | 2019-03-12 21:32 | NUR ---
PT PASSED, DR DENIS WAS ON FLOOR AND PRONOUNCED TIME OF 2129, MOTHER DAUGHTER AND AT BEDSIDE, HOSPICE CALLED, DIGITAL ACCOUNT COORDINATOR NOTIFIED
--- NOTE | 2019-03-12 22:00 | NUR ---
CALLED [facility] STATED THEY'D BE HERE AROUND 2300
--- NOTE | 2019-03-12 23:49 | NUR ---
HOME HERE TO CHANNEL DEVELOPMENT MANAGER PT FOR TRANSFER TO [facility] IN [place]
== END 2019-03-12 21:30 | DRG 951 ==
LOC: D.MS 14:43
PROVIDERS: ADMIT Emergency Medicine; ATTEND Emergency Medicine
DX: Z51.5 Encounter for palliative care (principal)